=== PATIENT | female | born 1965 | race Caucasian/White ===

== ENCOUNTER 2018-05-17 03:50 | Inpatient (IN) | payer MEDICARE ==
[~2018-05-17] VITALS: Ht 157.5 cm; Wt 146.0 kg
[2018-05-17] VITALS (10 sets, daily range): BP systolic 113–143; BP diastolic 52–78; BMI 56.3
--- NOTE | ~2018-05-17 | HEMODYNAMI ---
PATIENT:MAYURI CHILD MEDICAL RECORD: [id number] : 63 LOCATION:[address] ADMISSION DATE: 05/17/18 Generatedon:05/17/201812:24 Patient name: MAYURI CHILD Patient #: [id number] SSN: DO B: 1965 Date of study: 05/17/2018 Page: Of Hemodynamic Procedure Report Patient Data Patient Demographics Procedure consent was obtained First Name: MAYURI Gender: Female Last Name: DANYELL : 1965 Middle Initial: A Age: 53 year(s) Patient #: [id number] Race: Unknown Additional ID: [id number] Contact details [address]: [address] [place] [address] State: [place] City: [place] Zip code: [address] Past Medical History Allergies Allergen Reaction Date Comments Reported Penicillins 05/17/2018 Other allergy 05/17/2018 TORADOL, CIPRO Admission Admission Data Admission Date: 05/17/2018 Admission Time: 5:29 Room #: D.2113 Lab Results Lab Result Date: 05/17/2018 Lab Result Time: 0:00 Biochemistry Name Units Result Min Max BUN mg/dl 16 --(---*)-- 7 18 Creatinine mg/dl 0.9 --(-*--)-- 0.6 1.3 CBC Name Units Result Min Max Hemoglobin g/dl 13.6 --(*---)-- 13.5 17.5 Procedure Procedure Types Cath Procedure Diagnostic Procedure LHC LHC w/Coronaries Procedure Description Procedure Date Procedure Date: 05/17/2018 Procedure Start Time: 12:15 Procedure End Time: 12:24 Procedure Staff Name Function Chandu Ace MD Performing Physician Sofi Sood RT Monitor Tamara Quach RT Scrub Diogo Jolley RN Nurse Procedure Data Cath Procedure Fluoroscopy Diagnostic fluoroscopy Total fluoroscopy Time: 0.7 time: 0.7 min min Diagnostic fluoroscopy Total fluoroscopy dose: 287 dose: 287 mGy mGy Contrast Material Contrast Material Type Amount (ml) Isovue 300 0 Entry Location Entry Primary Successful Side Size Upsize Upsize Entry Closure Succes sful Closure Location (Fr) 1 (Fr) 2 (Fr) Remarks Device Remarks Femoral Right 5 Fr Exoseal artery Estimated blood loss: 5 ml Diagnostic catheters Device Type Used For End Catheter Placement MULTIPACK Pigtail 5 Fr LV Angiography catheter MULTIPACK JL 4.0 5Fr Left Coronary catheter Angiography MULTIPACK 3DRC 5Fr Right Coronary catheter Angiography Procedure Complications No complications Procedure Medications Medication Administration Route Dosage 0.9% NaCl I.V. 100 ml/hr Oxygen etCO2 Nasal cannula 2 l/min Heparin Flush Bag added to field 2 bags (1000units/500ml NS) Lidocaine 2% added to field 20 Versed I.V. 1 mg Fentanyl I.V. 50 mcg Fentanyl I.V. 50 mcg Hemodynamics Rest HGB: 13.6 (g/dl) Heart Rate: 56 (bpm) Snapshots Pre Cath Intra NCS Post Cath Vital Signs Time Heart Resp SPO2 etCO2 NIBP (mmHg) Rhythm Pain Sedation Rate (ipm) (%) (mmHg) Status Level (bpm) 11:59:44 54 18 0 169/79(131) NSR 0 (11) 10(A) , No pain 12:05:27 53 13 96 51.8 147/84(117) NSR 0 (11) 10(A) , No pain 12:12:04 51 18 88 41.3 119/48(92) NSR 0 (11) 10(A) , No pain 12:16:38 54 19 95 48.8 96/60(81) NSR 0 (11) 10(A) , No pain 12:22:41 51 8 95 21.8 125/89(107) NSR 0 (11) 10(A) , No pain Medications Time Medication Route Dose Verified Delivered Reason Notes Eff ectiveness by by 12:00:34 0.9% NaCl I.V. 100 Diogo Diogo Per ml/hr Shola Jolley physician RN RN 12:00:44 Oxygen etCO2 2 Diogo Diogo Per Nasal l/min Shola Jolley physician cannula RN RN 12:00:54 Heparin Flush added 2 Diogo Diogo used for Bag to bags Shola Jolley procedure (1000units/500ml field RN RN NS) 12:01:04 Lidocaine 2% added 20ml Diogo Diogo for local to vial Lorigan Lorigan anesthetic field RN RN 12:11:44 Versed I.V. 1 mg Diogo Diogo for Lorigan Lorigan sedation RN RN 12:11:59 Fentanyl I.V. 50 Diogo Diogo for mcg Lorigan Lorigan sedation RN RN 12:17:53 Fentanyl I.V. 50 Diogo Diogo for mcg Lorigan Lorigan sedation RN mems process engineer Log Time Note 11:37:29 Signed procedure consent form obtained from patient. 11:37:30 Time tracking: Regular hours (M-F 7:00 - 5:00) 11:37:33 Plan of Care:Hemodynamics will remain stable., Cardiac rhythm will remain stable., Comfort level will be maintained., Respiratory function will remain adequate., Patient/ family verbilizes understanding of procedure., Procedure tolerated without complication., Recovers from procedure without complications.. 11:37:43 H&P Date Dictated: 05/17/2018 Within 30 days and on chart., H&P Addendum completed by physician on day of procedure. (MUST COMPLETE FOR ALL OUTPATIENTS). 11:38:36 Tamara Quach RT(R) sent for patient. Start room use. 11:39:03 Lab Result : BUN 16 mg/dl 11:39:03 Lab Result : Hemoglobin 13.6 g/dl 11:39:03 Lab Result : Creatinine 0.9 mg/dl 11:39:07 Lab results completed and on chart. 11:47:57 Patient received from Med II to CCL 1 Alert and oriented. Tansferred to table in Supine position. 11:47:59 Warm blankets applied, and jose hugger turned on for patient comfort. 11:47:59 Correct patient and procedure confirmed by team. 11:48:00 ECG and BP/O2 sat monitors applied to patient. 11:57:51 Vital chart was started 12:00:34 0.9% NaCl 100 ml/hr I.V. was administered by Diogo Jolley RN; Per physician; 12:00:44 Oxygen 2 l/min etCO2 Nasal cannula was administered by Diogo Jolley RN; Per physician; 12:00:54 Heparin Flush Bag (1000units/500ml NS) 2 bags added to field was administered by Diogo Jolley RN; used for procedure; 12:01:04 Lidocaine 2% 20ml vial added to field was administered by Diogo Jolley RN; for local anesthetic; 12:01:08 Baseline sample Acquired. 12:01:08 Full Disclosure recording started 12:01:11 Pre-procedure instructions explained to patient. 12:01:12 Pre-op teaching completed and patient verbalized understanding. 12:01:34 Family unavailable. 12:01:37 Rhythm: sinus rhythm 12:01:41 Patient NPO since Midnight. 12:01:49 Patient allergic to Penicillins 12:02:05 Patient allergic to Other allergyTORADOL, CIPRO 12:02:08 Is the patient allergic to Iodine/contrast media? No. 12:02:11 Is patient on blood thinner?Yes 12:02:15 ACC The patient was administered the following blood thiners within the last 24 hours: Eliquis 12:02:30 Patient diabetic? No. 12:02:35 Previous problem with sedation/anesthesia? No ? 12:02:37 Snore? No 12:02:38 Sleep apnea? No 12:02:41 Deviated septum? No 12:02:42 Opens mouth fully? Yes 12:02:43 Sticks out tongue? Yes 12:02:47 Airway obstruction? Yes ASTHMA 12:02:52 Dentures? No ? 12:02:57 Pre procedure: right dorsailis pedis pulse 0-Absent 12:03:00 Modified Mike's test Ulnar > 7 seconds. 12:03:02 Patient pain scale 0/10 ?. 12:03:32 IV patent on arrival in left forearm with 0.9% NaCl at KVO. 12:03:38 Right groin area was prepped with chlora-prep and draped in sterile fashion 12:03:39 Alarms reviewed by R. N. 12:03:39 Sharps counted by scrub and verified by R.N. 12:03:42 Use device set Femoral Dx 12:03:43 ACIST Syringe (60454) opened to sterile field. 12:03:43 Bag Decanter (2002) opened to sterile field. 12:03:44 Medline Cath Pack ([id number]) opened to sterile field. 12:03:44 DIAGNOSTIC WIRE .035 260cm J wire (654170) opened to sterile field. 12:03:45 ACIST Hand Control (92878) opened to sterile field. 12:03:46 ACIST Manifold (68503) opened to sterile field. 12:03:46 DIAGNOSTIC Multipack 5Fr catheter set ([id number]) opened to sterile field. 12:03:47 Tegaderm 4 x 4 (1626W) opened to sterile field. 12:03:48 SHEATH Prelude 5Fr 0.035 ([id number]) opened to sterile field. 12:07:51 Zero performed for pressure channel P1 12:09:00 Baseline sample Acquired. 12:10:48 Final Timeout: patient, procedure, and site verified with staff and physician. All members of the team are in agreement. 12:10:50 Right groin site verified by team. 12:10:52 Physical assessment completed. ASA score P 2 - A patient with mild systemic disease as per Chandu Ace MD. 12:10:55 Sedation plan: IV Moderate Sedation Medication:Versed, Fentanyl 12:11:44 Versed 1 mg I.V. was administered by Diogo Jolley RN; for sedation; 12:11:59 Fentanyl 50 mcg I.V. was administered by Diogo Jolley RN; for sedation; 12:15:05 Procedure started. 12:15:09 Local anesthetic to right femoral artery with Lidocaine 2% by Chandu Ace MD.INITIAL ACCESS ONLY 12:15:45 A 5 Fr sheath was inserted into the Right Femoral artery 12:16:10 A MULTIPACK Pigtail 5 Fr catheter was advanced over the wire and used for LV Angiography. 12:16:49 LV gram done using BROWN 12:16:53 EF : 50 % 12:16:56 Injector settings: Ml/sec: 10, Volume: 20, 12:16:57 Catheter removed. 12:17:03 A MULTIPACK JL 4.0 5Fr catheter was advanced over the wire and used for Left Coronary Angiography. 12:17:51 Catheter removed. 12:17:53 Fentanyl 50 mcg I.V. was administered by Diogo Jolley RN; for sedation; 12:17:56 A MULTIPACK 3DRC 5Fr catheter was advanced over the wire and used for Right Coronary Angiography. 12:18:41 Catheter removed. 12:18:43 EXOSEAL 5Fr (EX500) opened to sterile field. 12:18:55 Sheath removed intact; hemostasis achieved with Exoseal to the Right Femoral artery. 12:18:58 Procedure ended.(Physican Out) 12:19:08 Fluoroscopy time 00.70 minutes. 12:19:13 Fluoroscopy dose: 287 mGy 12:19:13 Flurop Dose total: 287 12:19:36 Contrast amount:Isovue 300 0ml. 12:19:38 Sharps counted by scrub and verified by R.N. 12:19:39 Insertion/operative site no bleeding no hematoma. 12:19:42 Post-op/insertion site Right Femoral artery dressed using a 4 x 4 and Tegaderm. 12:19:44 Post right femoral artery:stable, clean and dry 12:19:46 Post Procedure Pulses reassessed and unchanged 12:19:48 Post-procedure physical assessment completed. ASA score P 2 - A patient with mild systemic disease as per Chandu Ace MD. 12:19:50 Post procedure rhythm: unchanged. 12:19:53 Estimated blood loss: 5 ml 12:20:00 Post procedure instruction explained to patient.Patient verbalizes understanding. 12:20:01 Patient needs reinforcement of post procedure teaching. 12:21:05 Procedure and supply charges have been captured, reviewed, submitted and are correct. 12:21:13 Procedure Complication : No complications 12:21:15 See physician's report for complete and final results. 12:21:41 Report given to PCU. 12:24:09 Vital chart was stopped 12:24:15 Patient transfered to PCU with Bed. 12:24:23 Procedure ended. 12:24:23 Full Disclosure recording stopped 12:24:26 End room use (Document Last) Device Usage Item Name Manufacture Quantity Catalog Number Hospital Part Current M inimal Lot# / Charge Number Stock Stock Serial# Code ACIST Syringe Acist 1 09298 [id number] [id number] 2 0 (73488) [employer] Bag Decanter Microtek 1 [id number] 29511 920099 5 () [employer] Medline Cath Cardinal 1 [id number] 079012 62773 547045 5 [facility] ([id number]) DIAGNOSTIC WIRE St Akash 1 290799 586804 266879 001298 3 0 .035 260cm J wire (568415) ACIST Hand Acist 1 03492 369653 896818 414492 5 Control (48565) [employer] ACIST Manifold Acist 1 03524 945838 216166 042995 5 (35611) [employer] DIAGNOSTIC Cardinal 1 [id number] 455324 60634 863691 3 0 Multipack 5Fr Health catheter set ([id number]) Tegaderm 4 x 4 3M 1 1626W 405389 726137 025841 5 (1626W) SHEATH Prelude Merit 1 [id number] 373391 909208 832423 5 5Fr 0.035 Medical ([id number]) MULTIPACK Cardinal 1 133333 5 Pigtail 5 Fr Health catheter MULTIPACK JL Cardinal 1 [id number] 5 4.0 5Fr Health catheter MULTIPACK 3DRC Cardinal 1 939586 5 5Fr catheter Health EXOSEAL 5Fr Cardinal 1 EX500 915524 748020 013251 1 0 (EX500) Health Signature Audit Morven Stage Time Signature Unsigned Intra-Procedure 05/17/2018 Sofi 12:24:38 PM Counts RT(R) Signatures Monitor : Sofi Signature : Counts RT Date : Time : [address] [place] [address]
--- NOTE | ~2018-05-17 | OP ---
PATIENT NAME: MAYURI CHILD MEDICAL RECORD: [id number] :63 LOCATION:D.M2 D.2113 ADMISSION DATE:05/17/18 SURGEON: TWIN FUENTES MD DATE OF OPERATION: 05/17/2018 PROCEDURES: 1. Left heart catheterization. 2. Selective coronary angiography. 3. Left ventriculogram. INDICATION: Chest pain compatible with angina. PROCEDURE IN DETAIL: After informed consent was obtained and after a detailed explanation of risks, benefits as well as alternative therapies, the patient elected to proceed with angiogram and heart catheterization. The right femoral area was prepped and draped in normal sterile fashion. Right femoral artery was cannulated via modified Seldinger technique with placement of a 5-Marshallese sheath. All catheters exchanged through this sheath. FINDINGS: Left ventriculogram was performed in standard 30-degree BROWN view, reveals good cardiac wall motion throughout all segments. Overall ejection fraction estimated at 50%. SELECTIVE CORONARY ANGIOGRAPHY: Left main, left anterior descending, left circumflex, right coronary are all smooth-walled vessels. No angiographic evidence of coronary artery disease. OVERALL IMPRESSION: 1. No angiographic evidence of coronary artery disease. 2. Normal left heart pressures. 3. Normal left ventricular systolic function. The patient has been bradycardic during the procedure. Most likely her symptomatology is secondary to the bradycardia and not secondary to even quite significant coronary artery disease. Will discontinue her metoprolol, continue her propafenone. No other cardiac workup or treatment is necessary. TRANSINT:[id number] Voice Confirmation ID: [id number] DOCUMENT ID: [id number] TWIN FUENTES MD at 1752 CC: [id number] DICTATION DATE: 05/17/18 1223 CAFETERIA ATTENDANT: 05/17/18 1312 ADM IN [id number] [place] [address]
[2018-05-17 04:10] LABS: BASOPHILS 0.1 % (0-2); EOSINOPHILS 1.1 % (0-7); HEMATOCRIT 41.2 % (36.0-48.0); HEMOGLOBIN 13.6 g/dL (12-16); IMMATURE GRANULOCYTES 0.4 % (0-5); LYMPHOCYTES 22.7 % (15-50); MCH 29.4 pg (26.0-34.0); MCV 89.2 fL (80.0-100.0); MEAN PLATELET VOLUME 10.2 fL (7.4-10.4); MONOCYTES 11.8 % (2-11); NEUTROPHILS 63.9 % (40-80); PLATELET COUNT 192 10x3/uL (130-400); RBC 4.62 10x6/uL (4.00-5.40); WBC 7.5 10x3/uL (4.8-10.8)
[2018-05-17] MEDS ORDERED: KEFLEX500 MG PO (04:22)
[2018-05-17] MEDS ORDERED: DEPAKOTE500 MG PO (04:22)
[2018-05-17] MEDS ORDERED: ZYPREXA10 MG PO (04:23)
[2018-05-17] MEDS ORDERED: KEPPRA1000 MG PO (04:23)
[2018-05-17] MEDS ORDERED: ELIQUIS5 MG PO (04:24)
[2018-05-17] MEDS ORDERED: NEURONTIN 300300 MG (04:25)
[2018-05-17] MEDS ORDERED: LIPITOR40 MG PO (04:25)
[2018-05-17] MEDS ORDERED: TIROSINT25 MCG PO (04:26)
[2018-05-17] MEDS ORDERED: METOLAZONE2.5 MG (04:27)
[2018-05-17] MEDS ORDERED: METOPROLOL TART50 MG PO (04:28)
[2018-05-17] MEDS ORDERED: PROPAFENONE HC150 MG PO (04:28)
[2018-05-17] MEDS ORDERED: ZOLOFT100 MG PO (04:29)
[2018-05-17 04:30] LABS: ALBUMIN 3.2 g/dL (3.4-5.0); ALKALINE PHOSPHATASE 115 U/L (46-116); ALT (SGPT) 15 U/L (10-68); BILIRUBIN - TOTAL 0.34 mg/dL (0.2-1.3); CALC OSMOLALITY 286 mosm/kg (275-300); CALCIUM 9.1 mg/dL (8.5-10.1); CHLORIDE - SERUM 100 mmol/L (98-107); CREATININE - SERUM 0.9 mg/dL (0.6-1.3); GLUCOSE 112 mg/dL (74-106); PRO BNP 105 pg/mL (0-125); PROTEIN - SERUM 6.9 g/dL (6.4-8.2); SODIUM 143 mmol/L (136-145); TROPONIN-I < 0.017 ng/mL (0.000-0.060); UREA NITROGEN 16 mg/dL (7-18); eGFR NON AFRICAN AMERICAN 69 mL/min (90-120)
[2018-05-18 05:28] VITALS: BP 173/74
[2018-05-18 05:59] LABS: BASOPHILS 0.5 % (0-2); EOSINOPHILS 2.4 % (0-7); HEMATOCRIT 44.2 % (36.0-48.0); HEMOGLOBIN 13.9 g/dL (12-16); IMMATURE GRANULOCYTES 0.7 % (0-5); LYMPHOCYTES 32.5 % (15-50); MCH 29.1 pg (26.0-34.0); MCHC 31.4 g/dL (31.0-37.0); MEAN PLATELET VOLUME 10.3 fL (7.4-10.4); MONOCYTES 8.2 % (2-11); NEUTROPHILS 55.7 % (40-80); PLATELET COUNT 190 10x3/uL (130-400); RBC 4.78 10x6/uL (4.00-5.40); RDW 14.1 % (11.5-14.5)
[2018-05-18 06:12] LABS: CALCIUM 8.3 mg/dL (8.5-10.1); CHLORIDE - SERUM 104 mmol/L (98-107); CREATININE - SERUM 0.8 mg/dL (0.6-1.3); GLUCOSE 97 mg/dL (74-106); SODIUM 147 mmol/L (136-145); eGFR NON AFRICAN AMERICAN 79 mL/min (90-120)
[2018-05-18 06:23] LABS: CALC OSMOLALITY 290 mosm/kg (275-300); POTASSIUM - SERUM 4.1 mmol/L (3.5-5.1); UREA NITROGEN 11 mg/dL (7-18)
[2018-05-18 06:24] LABS: CARBON DIOXIDE 40.7 mmol/L (21.0-32.0)
[2018-05-18 06:32] LABS: MCV 92.5 fL (80.0-100.0); WBC 4.2 10x3/uL (4.8-10.8)
[2018-05-18 12:06] VITALS: BMI 56.2
[2018-05-18 20:42] VITALS: BP 135/72
[2018-05-19] VITALS: BP 176/96
[2018-05-19 06:09] VITALS: BP 139/67
[2018-05-19 08:36] VITALS: BP 128/42
[2018-05-19 12:33] VITALS: BP 163/69
[2018-05-19 17:21] VITALS: BP 153/58
[2018-05-19 19:10] LABS: APPEARANCE CLEAR (CLEAR); BILIRUBIN NEGATIVE (NEGATIVE); COLOR YELLOW (YELLOW); GLUCOSE NEGATIVE (NEGATIVE); KETONE NEGATIVE (NEGATIVE); NITRITE NEGATIVE (NEGATIVE); PROTEIN NEGATIVE (NEGATIVE); UROBILINOGEN NORMAL (NORMAL)
[2018-05-19 21:09] VITALS: BP 144/54
[2018-05-20 05:49] LABS: BASOPHILS 0.4 % (0-2); EOSINOPHILS 0.9 % (0-7); HEMATOCRIT 39.6 % (36.0-48.0); HEMOGLOBIN 12.2 g/dL (12-16); IMMATURE GRANULOCYTES 0.9 % (0-5); LYMPHOCYTES 18.4 % (15-50); MCH 28.8 pg (26.0-34.0); MCHC 30.8 g/dL (31.0-37.0); MCV 93.4 fL (80.0-100.0); MEAN PLATELET VOLUME 10.5 fL (7.4-10.4); MONOCYTES 10.3 % (2-11); NEUTROPHILS 69.1 % (40-80); PLATELET COUNT 173 10x3/uL (130-400); RBC 4.24 10x6/uL (4.00-5.40)
[2018-05-20 05:50] VITALS: BP 152/56
[2018-05-20 05:50] LABS: WBC 5.7 10x3/uL (4.8-10.8)
[2018-05-20 06:07] LABS: CALC OSMOLALITY 276 mosm/kg (275-300); CALCIUM 8.3 mg/dL (8.5-10.1); CARBON DIOXIDE 35.5 mmol/L (21.0-32.0); CHLORIDE - SERUM 102 mmol/L (98-107); CREATININE - SERUM 0.7 mg/dL (0.6-1.3); GLUCOSE 107 mg/dL (74-106); POTASSIUM - SERUM 4.5 mmol/L (3.5-5.1); SODIUM 140 mmol/L (136-145); eGFR NON AFRICAN AMERICAN > 90 mL/min (90-120)
[2018-05-20 06:10] LABS: UREA NITROGEN 7 mg/dL (7-18)
[2018-05-20 08:25] VITALS: BP 133/56
[2018-05-20 11:38] VITALS: BP 140/71
[2018-05-20 15:22] VITALS: BP 156/65
[2018-05-20 20:22] VITALS: BP 138/61
[2018-05-21] VITALS: BP 126/65
[2018-05-21 06:35] VITALS: BP 130/70
[2018-05-21 06:55] LABS: BASOPHILS 0.4 % (0-2); EOSINOPHILS 1.7 % (0-7); HEMOGLOBIN 11.8 g/dL (12-16); IMMATURE GRANULOCYTES 1.1 % (0-5); LYMPHOCYTES 27.6 % (15-50); MCH 28.6 pg (26.0-34.0); MCHC 31.1 g/dL (31.0-37.0); MEAN PLATELET VOLUME 10.4 fL (7.4-10.4); MONOCYTES 9.9 % (2-11); NEUTROPHILS 59.3 % (40-80); RBC 4.13 10x6/uL (4.00-5.40); RDW 13.8 % (11.5-14.5); WBC 4.7 10x3/uL (4.8-10.8)
[2018-05-21 06:59] LABS: PLATELET COUNT 103 10x3/uL (130-400)
[2018-05-21 07:11] LABS: CALCIUM 8.2 mg/dL (8.5-10.1); CHLORIDE - SERUM 103 mmol/L (98-107); CREATININE - SERUM 0.6 mg/dL (0.6-1.3); GLUCOSE 86 mg/dL (74-106); POTASSIUM - SERUM 3.9 mmol/L (3.5-5.1); SODIUM 142 mmol/L (136-145); eGFR NON AFRICAN AMERICAN > 90 mL/min (90-120)
[2018-05-21 07:16] LABS: CALC OSMOLALITY 280 mosm/kg (275-300); UREA NITROGEN 10 mg/dL (7-18)
[2018-05-21 07:17] LABS: CARBON DIOXIDE 41.1 mmol/L (21.0-32.0)
[2018-05-21 07:53] VITALS: BP 131/63
[2018-05-21 09:59] VITALS: Ht 157.5 cm; Wt 146.0 kg
[2018-05-21 11:57] VITALS: BP 135/54
[2018-05-21 15:20] VITALS: BP 104/62
[2018-05-21 19:00] VITALS: BP 131/56
[2018-05-22 00:29] VITALS: BP 128/51
[2018-05-22 05:06] VITALS: BP 122/64
[2018-05-22 05:11] LABS: BASOPHILS 0.2 % (0-2); EOSINOPHILS 2.2 % (0-7); HEMATOCRIT 37.8 % (36.0-48.0); IMMATURE GRANULOCYTES 0.5 % (0-5); LYMPHOCYTES 25.6 % (15-50); MCH 29.1 pg (26.0-34.0); MCHC 31.7 g/dL (31.0-37.0); MCV 91.5 fL (80.0-100.0); MEAN PLATELET VOLUME 9.9 fL (7.4-10.4); MONOCYTES 10.1 % (2-11); NEUTROPHILS 61.4 % (40-80); RBC 4.13 10x6/uL (4.00-5.40); RDW 13.8 % (11.5-14.5); WBC 4.1 10x3/uL (4.8-10.8)
[2018-05-22 05:20] LABS: PLATELET COUNT 135 10x3/uL (130-400)
[2018-05-22 05:30] LABS: CALCIUM 8.1 mg/dL (8.5-10.1); CHLORIDE - SERUM 101 mmol/L (98-107); CREATININE - SERUM 0.7 mg/dL (0.6-1.3); GLUCOSE 104 mg/dL (74-106); POTASSIUM - SERUM 3.8 mmol/L (3.5-5.1); SODIUM 143 mmol/L (136-145); eGFR NON AFRICAN AMERICAN > 90 mL/min (90-120)
[2018-05-22 05:36] LABS: CALC OSMOLALITY 285 mosm/kg (275-300); CARBON DIOXIDE 41.4 mmol/L (21.0-32.0); UREA NITROGEN 14 mg/dL (7-18)
[2018-05-22 08:43] VITALS: BP 137/66
[2018-05-22 13:35] VITALS: BP 126/64
[2018-05-22 16:17] VITALS: BP 142/56
[2018-05-22 21:24] VITALS: BP 157/79
[2018-05-23 00:57] VITALS: BP 157/67
[2018-05-23 05:52] VITALS: BP 145/76
[2018-05-23 06:13] LABS: BASOPHILS 0.2 % (0-2); EOSINOPHILS 0.3 % (0-7); HEMATOCRIT 40.5 % (36.0-48.0); HEMOGLOBIN 12.5 g/dL (12-16); IMMATURE GRANULOCYTES 0.9 % (0-5); LYMPHOCYTES 7.9 % (15-50); MCH 29.2 pg (26.0-34.0); MCHC 30.9 g/dL (31.0-37.0); MEAN PLATELET VOLUME 9.8 fL (7.4-10.4); MONOCYTES 6.4 % (2-11); NEUTROPHILS 84.3 % (40-80); PLATELET COUNT 149 10x3/uL (130-400); RBC 4.28 10x6/uL (4.00-5.40); RDW 13.9 % (11.5-14.5)
[2018-05-23 06:16] LABS: MCV 94.6 fL (80.0-100.0); WBC 5.8 10x3/uL (4.8-10.8)
[2018-05-23 06:23] LABS: CALCIUM 7.9 mg/dL (8.5-10.1); CHLORIDE - SERUM 101 mmol/L (98-107); CREATININE - SERUM 0.8 mg/dL (0.6-1.3); GLUCOSE 145 mg/dL (74-106); SODIUM 144 mmol/L (136-145); eGFR NON AFRICAN AMERICAN 79 mL/min (90-120)
[2018-05-23 06:35] LABS: CALC OSMOLALITY 287 mosm/kg (275-300); POTASSIUM - SERUM 4.8 mmol/L (3.5-5.1); UREA NITROGEN 8 mg/dL (7-18)
[2018-05-23 06:36] LABS: CARBON DIOXIDE 43.5 mmol/L (21.0-32.0)
[2018-05-23 07:59] VITALS: BP 155/88
[2018-05-23 15:59] VITALS: BP 119/77
[2018-05-23 20:00] VITALS: BP 116/78
[2018-05-24 04:17] VITALS: BP 122/61
[2018-05-24 05:54] LABS: BASOPHILS 0.4 % (0-2); EOSINOPHILS 1.5 % (0-7); HEMATOCRIT 39.8 % (36.0-48.0); HEMOGLOBIN 12.3 g/dL (12-16); IMMATURE GRANULOCYTES 1.7 % (0-5); LYMPHOCYTES 26.3 % (15-50); MCH 28.8 pg (26.0-34.0); MCHC 30.9 g/dL (31.0-37.0); MCV 93.2 fL (80.0-100.0); MEAN PLATELET VOLUME 9.6 fL (7.4-10.4); NEUTROPHILS 62.1 % (40-80); PLATELET COUNT 144 10x3/uL (130-400); RBC 4.27 10x6/uL (4.00-5.40); RDW 13.9 % (11.5-14.5); WBC 4.6 10x3/uL (4.8-10.8)
[2018-05-24 06:34] LABS: CALCIUM 8.3 mg/dL (8.5-10.1); CHLORIDE - SERUM 102 mmol/L (98-107); CREATININE - SERUM 0.8 mg/dL (0.6-1.3); SODIUM 142 mmol/L (136-145); UREA NITROGEN 9 mg/dL (7-18); eGFR NON AFRICAN AMERICAN 79 mL/min (90-120)
[2018-05-24 06:38] LABS: CALC OSMOLALITY 280 mosm/kg (275-300); GLUCOSE 84 mg/dL (74-106); POTASSIUM - SERUM 3.8 mmol/L (3.5-5.1)
[2018-05-24 06:39] LABS: CARBON DIOXIDE 42.3 mmol/L (21.0-32.0)
[2018-05-24 08:13] VITALS: BP 141/73
[2018-05-24 11:35] VITALS: BP 129/61
[2018-05-24 16:32] VITALS: BP 147/64
[2018-05-24 21:04] VITALS: BP 117/61
[2018-05-25 05:33] VITALS: BP 135/59
[2018-05-25 07:43] VITALS: BP 137/71
[2018-05-25 11:30] VITALS: BP 94/69
[2018-05-25 15:37] VITALS: BP 124/63
[2018-05-25 20:26] VITALS: BP 124/64
[2018-05-26 00:14] VITALS: BP 113/50
[2018-05-26 04:30] VITALS: BP 124/66
[2018-05-26 05:03] LABS: BASOPHILS 0.6 % (0-2); EOSINOPHILS 2.2 % (0-7); HEMATOCRIT 37.1 % (36.0-48.0); HEMOGLOBIN 11.8 g/dL (12-16); IMMATURE GRANULOCYTES 1.1 % (0-5); LYMPHOCYTES 27.7 % (15-50); MCH 29.2 pg (26.0-34.0); MCHC 31.8 g/dL (31.0-37.0); MCV 91.8 fL (80.0-100.0); MEAN PLATELET VOLUME 9.9 fL (7.4-10.4); MONOCYTES 9.6 % (2-11); NEUTROPHILS 58.8 % (40-80); PLATELET COUNT 145 10x3/uL (130-400); RBC 4.04 10x6/uL (4.00-5.40); RDW 14.3 % (11.5-14.5); WBC 5.3 10x3/uL (4.8-10.8)
[2018-05-26 05:24] LABS: CALCIUM 8.2 mg/dL (8.5-10.1)
[2018-05-26 05:34] LABS: ANION GAP 3.9 mmol/L (8-16); POTASSIUM - SERUM 4.6 mmol/L (3.5-5.1)
[2018-05-26 05:35] LABS: CARBON DIOXIDE 41.7 mmol/L (21.0-32.0)
[2018-05-26 07:46] VITALS: BP 131/67
[2018-05-26] MEDS ORDERED: RYTHMOL PO (11:37)
[2018-05-26] MEDS ORDERED: PROTONIX40 MG PO (11:38)
[2018-05-26 11:52] VITALS: BP 134/71
== END 2018-05-26 15:37 | DRG 690 ==
LOC: D.ER 03:50 → D.EDHOLD 05:29 → OBSVTIME 05:29 → D.M2 05:29 → D.SDCHOLD 05-21 01:07 → D.M2 05-21 01:07
PROVIDERS: Family Medicine; Internal Medicine Interventional Cardiology; Internal Medicine Nephrology
PROC: B2151ZZ Fluoroscopy of Left Heart using Low Osmolar Contrast (ICD-10-PCS; 2018-05-17)
PROC: 4A023N7 Measurement of Cardiac Sampling and Pressure, Left Heart, Percutaneous Approach (ICD-10-PCS; 2018-05-17)
PROC: B2111ZZ Fluoroscopy of Multiple Coronary Arteries using Low Osmolar Contrast (ICD-10-PCS; principal; 2018-05-17 11:38)
DX: N39.0 Urinary tract infection, site not specified (principal); L03.116 Cellulitis of left lower limb; L03.115 Cellulitis of right lower limb; Z68.43 Body mass index [BMI] 50.0-59.9, adult; R07.9 Chest pain, unspecified; E87.6 Hypokalemia; J44.9 Chronic obstructive pulmonary disease, unspecified; I11.0 Hypertensive heart disease with heart failure; I50.9 Heart failure, unspecified; R00.1 Bradycardia, unspecified; G40.909 Epilepsy, unspecified, not intractable, without status epilepticus; F31.9 Bipolar disorder, unspecified; E66.01 Morbid (severe) obesity due to excess calories; Z91.19 Patient's noncompliance with other medical treatment and regimen; B96.20 Unspecified Escherichia coli [E. coli] as the cause of diseases classified elsewhere

== ENCOUNTER 2018-06-12 22:43 | Inpatient (IN) | payer MEDICARE ==
[~2018-06-12] VITALS: Ht 157.5 cm; Wt 145.6 kg
[~2018-06-12 22:43] MED LIST: DEPAKOTE500 MG PO; ELIQUIS5 MG PO; KEFLEX500 MG PO; KEPPRA1000 MG PO; LIPITOR40 MG PO; METOLAZONE2.5 MG; METOPROLOL TART50 MG PO; NEURONTIN 300300 MG; PROPAFENONE HC150 MG PO; PROTONIX40 MG PO; RYTHMOL PO; TIROSINT25 MCG PO; ZOLOFT100 MG PO; ZYPREXA10 MG PO
[2018-06-12] MEDS ORDERED: POTASSIUM CHLO20 MEQ (22:49)
[2018-06-12] MEDS ORDERED: LASIX80 MG PO (22:50)
[2018-06-12] MEDS ORDERED: DEPAKOTE500 MG PO (22:50)
[2018-06-12] MEDS ORDERED: ZYPREXA5 MG PO (22:51)
[2018-06-12] MEDS ORDERED: MELATONIN 3 MG1 TAB PO (22:51)
[2018-06-12] MEDS ORDERED: ELIQUIS5 MG PO (22:52)
[2018-06-12] MEDS ORDERED: NORCO 7.5/325 T1 TA1 PO (22:52)
[2018-06-12] MEDS ORDERED: NEURONTIN 300300 MG PO (22:52)
[2018-06-12] MEDS ORDERED: LIPITOR40 MG PO (22:54)
[2018-06-12] MEDS ORDERED: PROPAFENONE HC225 MG PO (22:55)
[2018-06-12 23:33] LABS: HEMATOCRIT 35.3 % (36.0-48.0); HEMOGLOBIN 11.6 g/dL (12-16); LYMPHOCYTES 21.4 % (15-50); MCH 29.7 pg (26.0-34.0); MCHC 32.9 g/dL (31.0-37.0); MCV 90.3 fL (80.0-100.0); MEAN PLATELET VOLUME 9.5 fL (7.4-10.4); NEUTROPHILS 63.6 % (40-80); RBC 3.91 10x6/uL (4.00-5.40); WBC 5.1 10x3/uL (4.8-10.8)
[2018-06-12 23:35] LABS: PLATELET COUNT 176 10x3/uL (130-400)
[2018-06-12 23:40] VITALS: BP 160/73
[2018-06-12 23:42] LABS: APTT 32.3 SECONDS (22.8-39.4); INR 1.02 (0.85-1.17)
[2018-06-12 23:43] LABS: D-DIMER-QUANTITATIVE 0.44 ug/mLFEU (0.20-0.54)
[2018-06-12 23:57] LABS: ALKALINE PHOSPHATASE 106 U/L (46-116); ALT (SGPT) 23 U/L (10-68); BILIRUBIN - TOTAL 0.37 mg/dL (0.2-1.3); CALC OSMOLALITY 288 mosm/kg (275-300); CALCIUM 8.1 mg/dL (8.5-10.1); CARBON DIOXIDE 39.7 mmol/L (21.0-32.0); CHLORIDE - SERUM 102 mmol/L (98-107); CREATINE KINASE 98 UL (21-215); CREATININE - SERUM 0.8 mg/dL (0.6-1.3); GLUCOSE 115 mg/dL (74-106); MAGNESIUM - SERUM 1.6 mg/dL (1.8-2.4); POTASSIUM - SERUM 3.4 mmol/L (3.5-5.1); PRO BNP 216 pg/mL (0-125); PROTEIN - SERUM 6.6 g/dL (6.4-8.2); SODIUM 145 mmol/L (136-145); TROPONIN-I < 0.017 ng/mL (0.000-0.060); UREA NITROGEN 11 mg/dL (7-18); eGFR NON AFRICAN AMERICAN 79 mL/min (90-120)
[2018-06-13] VITALS (8 sets, daily range): BP systolic 120–147; BP diastolic 56–84; Ht 157.5 cm; Wt 145.6 kg
[2018-06-13] MEDS ORDERED: K-DUR20 MEQ PO (03:50)
[2018-06-13] MEDS ORDERED: PROPAFENONE HC225 MG PO (03:59)
[2018-06-13] MEDS ORDERED: NORCO 7.5/325 T1 TA1 PO (04:02)
[2018-06-13] MEDS ORDERED: ACETAMINOPHEN325 MG PO (04:04)
[2018-06-13 05:54] LABS: CKMB 3.3 U/L (0.0-3.6); CREATINE KINASE 98 UL (21-215); TROPONIN-I < 0.017 ng/mL (0.000-0.060)
[2018-06-13 12:17] LABS: CKMB 2.9 U/L (0.0-3.6); CREATINE KINASE 81 UL (21-215); TROPONIN-I < 0.017 ng/mL (0.000-0.060)
[2018-06-13 17:30] LABS: CKMB 2.8 U/L (0.0-3.6); CREATINE KINASE 67 UL (21-215)
[2018-06-13 17:44] LABS: TROPONIN-I < 0.017 ng/mL (0.000-0.060)
[2018-06-14 06:19] LABS: BASOPHILS 0.2 % (0-2); EOSINOPHILS 0 % (0-7); HEMATOCRIT 37.1 % (36.0-48.0); HEMOGLOBIN 11.6 g/dL (12-16); IMMATURE GRANULOCYTES 0.7 % (0-5); LYMPHOCYTES 13.4 % (15-50); MCH 29.3 pg (26.0-34.0); MCHC 31.3 g/dL (31.0-37.0); MCV 93.7 fL (80.0-100.0); MEAN PLATELET VOLUME 10.2 fL (7.4-10.4); MONOCYTES 4.9 % (2-11); NEUTROPHILS 80.8 % (40-80); PLATELET COUNT 186 10x3/uL (130-400); RBC 3.96 10x6/uL (4.00-5.40); RDW 14.6 % (11.5-14.5); WBC 5.5 10x3/uL (4.8-10.8)
[2018-06-14 06:21] VITALS: BP 114/66
[2018-06-14 06:56] LABS: ANION GAP 8.7 mmol/L (8-16); CALCIUM 8.1 mg/dL (8.5-10.1); CARBON DIOXIDE 34.7 mmol/L (21.0-32.0); CREATININE - SERUM 0.9 mg/dL (0.6-1.3); MAGNESIUM - SERUM 1.9 mg/dL (1.8-2.4)
[2018-06-14 07:04] LABS: POTASSIUM - SERUM 4.4 mmol/L (3.5-5.1)
[2018-06-14 07:48] VITALS: BP 118/66
[2018-06-14 10:42] VITALS: BP 116/66
[2018-06-14 15:45] VITALS: BP 120/68
[2018-06-14 21:20] VITALS: BP 138/66
[2018-06-15 05:53] VITALS: BP 142/79
[2018-06-15 07:56] VITALS: BP 116/63
[2018-06-15] MEDS ORDERED: IPRAT-ALBUT 0.5-3 ML INH (07:59)
[2018-06-15] MEDS ORDERED: ZITHROMAX250 MG PO (07:59)
[2018-06-15] MEDS ORDERED: Rocephin INJ IM (07:59)
[2018-06-15] MEDS ORDERED: LASIX40 MG PO (08:01)
[2018-06-15] MEDS ORDERED: PREDNISONE20 MG PO (08:02)
[2018-06-15] MEDS ORDERED: FLORAJEN3 CAPS460 MG PO (08:02)
[2018-06-15] MEDS ORDERED: MELATONIN 3 MG1 TAB PO (08:03)
[2018-06-15 12:27] VITALS: BP 155/76
== END 2018-06-15 15:23 | DRG 202 ==
LOC: D.ER 22:43 → D.M2 06-13 01:38 → D.SDCHOLD 06-13 16:31 → D.M2 06-13 16:32
PROVIDERS: Family Medicine
DX: J20.9 Acute bronchitis, unspecified (principal); J44.0 Chronic obstructive pulmonary disease with (acute) lower respiratory infection; L03.115 Cellulitis of right lower limb; Z68.43 Body mass index [BMI] 50.0-59.9, adult; I50.22 Chronic systolic (congestive) heart failure; I11.0 Hypertensive heart disease with heart failure; I48.91 Unspecified atrial fibrillation; E87.6 Hypokalemia; E78.5 Hyperlipidemia, unspecified; E03.9 Hypothyroidism, unspecified; G47.00 Insomnia, unspecified; G62.9 Polyneuropathy, unspecified; G89.29 Other chronic pain; G40.909 Epilepsy, unspecified, not intractable, without status epilepticus; E66.01 Morbid (severe) obesity due to excess calories

== ENCOUNTER 2018-08-25 00:32 | Emergency (ER) | payer MEDICARE ==
[~2018-08-25] VITALS: Ht 157.5 cm; Wt 150.0 kg
[~2018-08-25 00:32] MED LIST changes: +ACETAMINOPHEN325 MG PO; +FLORAJEN3 CAPS460 MG PO; +IPRAT-ALBUT 0.5-3 ML INH; +K-DUR20 MEQ PO; +LASIX40 MG PO; +LASIX80 MG PO; +MELATONIN 3 MG1 TAB PO; +NEURONTIN 300300 MG PO; +NORCO 7.5/325 T1 TA1 PO; +POTASSIUM CHLO20 MEQ; +PREDNISONE20 MG PO; +PROPAFENONE HC225 MG PO; +Rocephin INJ IM; +ZITHROMAX250 MG PO; +ZYPREXA5 MG PO
[2018-08-25 00:33] VITALS: Ht 157.5 cm; Wt 150.0 kg
[2018-08-25] MEDS ORDERED: TRAZODONE HCL150 MG PO (00:37)
[2018-08-25 06:25] VITALS: BP 150/54
== END 2018-08-25 06:26 | disposition home or self-care (01) ==
LOC: D.ER 00:32
DX: I50.9 Heart failure, unspecified (principal); R51 Headache; W18.30XA Fall on same level, unspecified, initial encounter; Y93.89 Activity, other specified; Y92.129 Unspecified place in nursing home as the place of occurrence of the external cause; M54.5 Low back pain; G40.909 Epilepsy, unspecified, not intractable, without status epilepticus

== ENCOUNTER 2018-09-10 06:44 | Emergency (ER) | payer MEDICARE | END 2018-09-10 08:55 | LOC: D.ER 06:44 | DX: S93.402A Sprain of unspecified ligament of left ankle, initial encounter (principal); W18.31XA Fall on same level due to stepping on an object, initial encounter; Y93.89 Activity, other specified; Y92.129 Unspecified place in nursing home as the place of occurrence of the external cause; G40.909 Epilepsy, unspecified, not intractable, without status epilepticus; I50.9 Heart failure, unspecified; J44.9 Chronic obstructive pulmonary disease, unspecified; K21.9 Gastro-esophageal reflux disease without esophagitis ==

== ENCOUNTER 2018-09-19 20:45 | Emergency (ER) | payer MEDICARE ==
[~2018-09-19] VITALS: Ht 157.5 cm; Wt 157.3 kg
[~2018-09-19 20:45] MED LIST changes: +TRAZODONE HCL150 MG PO
[2018-09-19 20:50] VITALS: BP 163/87; Ht 157.5 cm; Wt 157.3 kg
[2018-09-19] MEDS ORDERED: CORTISPORIN OTI10 M1 LEFT EAR (22:00)
== END 2018-09-19 22:36 | disposition home or self-care (01) ==
LOC: D.ER 20:45
DX: H61.22 Impacted cerumen, left ear (principal); H92.02 Otalgia, left ear; G40.909 Epilepsy, unspecified, not intractable, without status epilepticus; E11.9 Type 2 diabetes mellitus without complications; I50.9 Heart failure, unspecified

== ENCOUNTER 2019-01-07 12:40 | Inpatient (IN) | payer MEDICARE ==
[~2019-01-07] VITALS: Ht 157.5 cm; Wt 137.8 kg
--- NOTE | ~2019-01-07 | HEMODYNAMI ---
PATIENT:MAYURI CHILD MEDICAL RECORD: [id number] : 63 LOCATION:[place] [address] ADMISSION DATE: 01/07/19 Generatedon:01/09/201910:24 Patient name: MAYURI CHILD Patient #: [id number] SSN: DO B: 1965 Date of study: 01/09/2019 Page: Of Hemodynamic Procedure Report Patient Data Patient Demographics Procedure consent was obtained First Name: MAYURI Gender: Female Last Name: DANYELL : 1965 Middle Initial: A Age: 53 year(s) Patient #: [id number] Race: Unknown Additional ID: [id number] Contact details Address: [address] [place] [address] [address] State: [place] City: [place] Zip code: [address] Past Medical History Allergies Allergen Reaction Date Comments Reported Penicillins 05/17/2018 Other allergy 05/17/2018 TORADOL, CIPRO Admission Admission Data Admission Date: 01/07/2019 Admission Time: 15:10 Room #: [facility] Procedure Procedure Types Cath Procedure Diagnostic Procedure LHC LHC w/Coronaries Procedure Description Procedure Date Procedure Date: 01/09/2019 Procedure Start Time: 10:12 Procedure End Time: 10:21 Procedure Staff Name Function Pieter Betancourt MD Performing Physician Sofi Sood RT Monitor Tamara Quach RT Scrub Peter Lopez RN Nurse Procedure Data Cath Procedure Fluoroscopy Diagnostic fluoroscopy Total fluoroscopy Time: 1.2 time: 1.2 min min Diagnostic fluoroscopy Total fluoroscopy dose: 557 dose: 557 mGy mGy Contrast Material Contrast Material Type Amount (ml) Isovue 300 43 Entry Location Entry Primary Successful Side Size Upsize Upsize Entry Closure Succes sful Closure Location (Fr) 1 (Fr) 2 (Fr) Remarks Device Remarks Femoral Right 5 Fr Exoseal artery Estimated blood loss: 5 ml Diagnostic catheters Device Type Used For End Catheter Placement MULTIPACK JL 4.0 5Fr Left Coronary catheter Angiography MULTIPACK 3DRC 5Fr Right Coronary catheter Angiography MULTIPACK Pigtail 5 Fr LV Angiography catheter Procedure Complications No complications Procedure Medications Medication Administration Route Dosage Oxygen Lidocaine 2% added to field 20 Heparin Flush Bag added to field 2 bags (1000units/500ml NS) 0.9% NaCl I.V. 100 ml/hr Versed I.V. 1 mg Fentanyl I.V. 50 mcg Versed I.V. 1 mg Fentanyl I.V. 50 mcg Versed I.V. 1 mg Fentanyl I.V. 50 mcg Hemodynamics Rest Heart Rate: 71 (bpm) Pressure Samples Time Site Value (mmHg) Purpose Heart Use Rate(bpm) 10:14 AO 105/105(87) Snapshot 101 10:14 AO 131/60(84) Snapshot 74 10:16 AO 99/13(29) Snapshot 72 10:17 LV 126/31,33 EDP 71 10:18 AO 128/89(101) Pullback 73 10:18 AO 133/82(104) Snapshot 75 Gradients Valve Time Site Site 2 Mean SEP/DFP Peak To Heart Use 1 (mmHg) (sec/min) Peak Rate (mmHg) (bpm) Aortic 10:18 LV AO 41 15 73 128/89(101) Calculations Valve P-P Mean Valve Index Valve Source Name Gradient Area Flow (cm2) Aortic 41 41 Snapshots Pre Cath Intra NCS Post Cath Vital Signs Time Heart Resp SPO2 etCO2 NIBP Rhythm Pain Sedation Rate (ipm) (%) (mmHg) (mmHg) Status Level (bpm) 10:08:17 68 20 100 0 134/74(0) A-Fib 6 (11) 10(A) , Intense 10:14:38 71 25 95 0 125/64(0) A-Fib 6 (11) 10(A) , Intense 10:21:01 72 15 96 0 98/63(91) A-Fib 6 (11) 10(A) , Intense Medications Time Medication Route Dose Verified Delivered Reason Notes Effe ctiveness by by 10:00:09 Oxygen mask bipap Pieter Green used for [facility] crusher 10:08:11 Lidocaine 2% added 20ml Pieter Stapleton for local to vial [facility] anesthetic field MD ATWOOD 10:08:17 Heparin Flush added 2 Pieter Stapleton used for Bag to bags [facility] John procedure (1000units/500ml field MD ATWOOD NS) 10:08:26 0.9% NaCl I.V. 100 Pieter Stapleton Per ml/hr [facility] John physician MD ATWOOD 10:10:33 Versed I.V. 1 mg Pieter Riverie for Serafin Lopez RN sedation 10:10:40 Fentanyl I.V. 50 [facility] sed[facility] 10:15:44 Versed I.V. 1 mg Pieter Riverie for Serafin Lopez RN sedation 10:15:48 Fentanyl I.V. 50 Pieter Riverie for [facility] Lopez RN sedation 10:18:52 Versed I.V. 1 mg Pieter Riverie for [facility] RN sedation 10:18:56 Fentanyl I.V. 50 Pieter Riverie for [facility] RN sedation Procedure Log Time Note 9:49:10 Tamara Quach RT(R) sent for patient. Start room use. 9:49:11 Time tracking: Regular hours (M-F 7:00 - 5:00) 9:49:15 Plan of Care:Hemodynamics will remain stable., Cardiac rhythm will remain stable., Comfort level will be maintained., Respiratory function will remain adequate., Patient/ family verbilizes understanding of procedure., Procedure tolerated without complication., Recovers from procedure without complications.. 9:51:07 Use device set Femoral Dx 9:51:07 ACIST Syringe (33634) opened to sterile field. 9:51:08 Bag Decanter (2002S) opened to sterile field. 9:51:08 Medline Cath Pack ([id number]) opened to sterile field. 9:51:09 DIAGNOSTIC WIRE .035 260cm J wire (384447) opened to sterile field. 9:51:10 ACIST Hand Control (58327) opened to sterile field. 9:51:10 ACIST Manifold (89334) opened to sterile field. 9:51:11 DIAGNOSTIC Multipack 5Fr catheter set (NS5000) opened to sterile field. 9:51:11 Tegaderm 4 x 4 (1626W) opened to sterile field. 9:51:13 SHEATH 5FR Purdon (OVE673) opened to sterile field. 9:54:52 Patient received from CVICU to CCL 1 Alert and oriented. Tansferred to table in Supine position. 9:54:53 Warm blankets applied, and jose hugger turned on for patient comfort. 9:54:54 Correct patient and procedure confirmed by team. 9:54:55 Signed procedure consent form obtained from patient. 9:54:56 ECG and BP/O2 sat monitors applied to patient. 9:54:57 Full Disclosure recording started 10:00:09 Oxygen bipap mask was administered by Peter Lopez RN; used for procedure; 10:06:27 Vital chart was started 10:06:29 Baseline sample Acquired. 10:06:32 Rhythm: sinus rhythm 10:07:19 pt c/o knee pain 10:07:36 H&P Date Dictated: 01/08/2019 Within 30 days and on chart.. 10:07:38 Pre-procedure instructions explained to patient. 10:07:38 Pre-op teaching completed and patient verbalized understanding. 10:07:42 Family in patients room. 10:07:43 Patient NPO since Midnight. 10:08:02 Is the patient allergic to Iodine/contrast media? No. 10:08:05 Is patient on blood thinner?No 10:08:11 Lidocaine 2% 20ml vial added to field was administered by Pieter Betancourt MD; for local anesthetic; 10:08:17 Heparin Flush Bag (1000units/500ml NS) 2 bags added to field was administered by Pieter Betancourt MD; used for procedure; 10:08:18 Patient diabetic? No. 10:08:25 Previous problem with sedation/anesthesia? No ? 10:08:26 0.9% NaCl 100 ml/hr I.V. was administered by Pieter eBtancourt MD; Per physician; 10:08:26 Snore? Yes 10:08:27 Sleep apnea? Yes 10:08:28 Deviated septum? No 10:08:28 Opens mouth fully? Yes 10:08:29 Sticks out tongue? Yes 10:08:32 Airway obstruction? Yes COPD 10:08:35 Dentures? No ? 10:08:48 Pre procedure: right dorsailis pedis pulse 1+ Palpable, but thready & weak; easily obliterated 10:08:51 Patient pain scale 0/10 ?. 10:09:42 PICC line Right lower arm with normal saline kvo 10:09:46 Lab results completed and on chart. 10:09:48 Right groin area was prepped with chlora-prep and draped in sterile fashion 10:09:49 Alarms reviewed by Logan Moya 10:09:49 Sharps counted by scrub and verified by R.N. 10::50 Final Timeout: patient, procedure, and site verified with staff and physician. All members of the team are in agreement. 10:09:52 Right groin site verified by team. 10:09:55 Maximum allowable Isovue 300 dose 300ml. Physician notified. (300ml for normal creatinines. For patients with creatinine of 1.7 or higher multiply weight(kg) x 5 divided by creatinine.) 10:09:58 Fire Safety Assessment: A--An alcohol-based skin anteseptic being used preoperatively., C--Open oxygen or nitrous oxide is being used., D--An ESU, laser, or fiber-optic light is being used. 10:10:04 Physical assessment completed. ASA score P 3 - A patient with severe systemic disease as per Pieter Betancourt MD. 10:10:07 Sedation plan: IV Moderate Sedation Medication:Versed, Fentanyl 10:10:33 Versed 1 mg I.V. was administered by Peter Lopez RN; for sedation; 10:10:40 Fentanyl 50 mcg I.V. was administered by Peter Lopez RN; for sedation; 10:12:19 Procedure started. 10:12:22 Local anesthetic to right femoral artery with Lidocaine 2% by Peiter Betancourt MD.INITIAL ACCESS ONLY 10:13:06 A 5 Fr sheath was inserted into the Right Femoral artery 10:13:33 Zero performed for pressure channel P1 10:13:39 Zero performed for pressure channel P1 10:13:46 Zero performed for pressure channel P1 10:13:49 Zero performed for pressure channel P1 10:14:16 A MULTIPACK JL 4.0 5Fr catheter was advanced over the wire and used for Left Coronary Angiography. 10:15:17 Catheter removed. 10:15:23 A MULTIPACK 3DRC 5Fr catheter was advanced over the wire and used for Right Coronary Angiography. 10:15:44 Versed 1 mg I.V. was administered by Peter Lopez RN; for sedation; 10:15:48 Fentanyl 50 mcg I.V. was administered by Peter Lopez RN; for sedation; 10:16:12 Catheter removed. 10:16:23 A MULTIPACK Pigtail 5 Fr catheter was advanced over the wire and used for LV Angiography. 10:17:42 LV gram done using BROWN 10:17:43 LV hemodynamics recorded. 10:17:45 Injector settings: Ml/sec: 10, Volume: 20, 10:17:51 EF : 50 % 10:18:14 Catheter removed. 10:18:26 Sheath removed intact; hemostasis achieved with Exoseal to the Right Femoral artery. 10:18:28 Procedure ended.(Physican Out) 10:18:40 Fluoroscopy time 01.20 minutes. 10:18:44 Flurop Dose total: 557 10:18:44 Fluoroscopy dose: 557 mGy 10:18:47 Contrast amount:Isovue 300 43ml. 10:18:49 Sharps counted by scrub and verified by R.N. 10:18:51 Insertion/operative site no bleeding no hematoma. 10:18:52 Versed 1 mg I.V. was administered by Peter Lopez RN; for sedation; 10:18:53 Post-op/insertion site Right Femoral artery dressed using a 4 x 4 and Tegaderm. 10:18:56 Fentanyl 50 mcg I.V. was administered by Peter Lopez RN; for sedation; 10:18:56 Post right femoral artery:stable, clean and dry 10:18:57 Post Procedure Pulses reassessed and unchanged 10:19:03 Post-procedure physical assessment completed. ASA score P 3 - A patient with severe systemic disease as per Pieter Betancourt MD. 10:19:05 Post procedure rhythm: unchanged. 10:19:09 Estimated blood loss: 5 ml 10:19:11 Post procedure instruction explained to patient.Patient verbalizes understanding. 10:19:12 Patient needs reinforcement of post procedure teaching. 10:19:26 Procedure Complication : No complications 10:19:28 See physician's report for complete and final results. 10:19:32 EXOSEAL 5Fr (EX500) opened to sterile field. 10:19:45 Procedure and supply charges have been captured, reviewed, submitted and are correct. 10:20:53 Vital chart was stopped 10:20:57 Report given to CVICU. 10:21:23 Patient transfered to CVICU with Bed. 10:21:39 Procedure ended. 10:21:39 Full Disclosure recording stopped 10:21:43 End room use (Document Last) Device Usage Item Name Manufacture Quantity Catalog Hospital Part Current Minimal L ot# / Number Charge Number Stock Stock Serial# Code ACIST Acist 1 36067 [id number] 344350 296259 20 Syringe Medical (34616) Systems Inc Bag Microtek 1 2001S 633419 85219 053780 5 Decanter Medical Inc. () Medline Medline 1 [id number] 767683 96511 237303 5 Cath Pack ([id number]) DIAGNOSTIC St Akash 1 014833 021122 074776 623011 30 WIRE .035 260cm J wire (699810) ACIST Hand Acist 1 61422 796967 265551 503277 5 Control Medical (47772) Systems Inc ACIST Acist 1 91843 845950 296625 195730 5 Manifold Medical (11857) Systems Inc DIAGNOSTIC Cardinal 1 OG2515 069786 81192 378146 30 Multipack Health 5Fr catheter set (QC8948) Tegaderm 4 3M 1 1626W 840149 659423 306788 5 x 4 (1626W) SHEATH 5FR Terumo 1 OUR760 594856 350847 419405 5 Purdon (MQH804) MULTIPACK Cardinal 1 324702 5 JL 4.0 5Fr Health catheter MULTIPACK Cardinal 1 599073 5 3DRC 5Fr Health catheter MULTIPACK Cardinal 1 922524 5 Pigtail 5 Health Fr catheter EXOSEAL 5Fr Cardinal 1 EX500 789951 144153 746803 10 (EX500) Health Signature Audit [place] Stage Time Signature Unsigned Intra-Procedure 01/09/2019 Sofi 10:24:51 AM Counts RT(R) Signatures Monitor : Sofi Signature : Counts RT Date : Time : [facility] [address] [place] [address]
[~2019-01-07 12:40] MED LIST changes: +CORTISPORIN OTI10 M1 LEFT EAR
[2019-01-07 13:43] LABS: BASOPHILS 0.1 % (0-2); EOSINOPHILS 1.4 % (0-7); HEMATOCRIT 38.5 % (36.0-48.0); HEMOGLOBIN 12.2 g/dL (12-16); IMMATURE GRANULOCYTES 0.6 % (0-5); LYMPHOCYTES 20.9 % (15-50); MCH 28.6 pg (26.0-34.0); MCHC 31.7 g/dL (31.0-37.0); MCV 90.2 fL (80.0-100.0); MEAN PLATELET VOLUME 10.2 fL (7.4-10.4); MONOCYTES 6.4 % (2-11); NEUTROPHILS 70.6 % (40-80); PLATELET COUNT 216 10x3/uL (130-400); RBC 4.27 10x6/uL (4.00-5.40); RDW 15.6 % (11.5-14.5); WBC 7.2 10x3/uL (4.8-10.8)
[2019-01-07 14:01] LABS: ALBUMIN 3.4 g/dL (3.4-5.0); ALKALINE PHOSPHATASE 139 U/L (46-116); ALT (SGPT) 30 U/L (10-68); BILIRUBIN - TOTAL 0.38 mg/dL (0.2-1.3); CALCIUM 8.4 mg/dL (8.5-10.1); CARBON DIOXIDE 31.6 mmol/L (21.0-32.0); CHLORIDE - SERUM 103 mmol/L (98-107); CKMB 0.8 U/L (0.0-3.6); CREATINE KINASE 33 UL (21-215); CREATININE - SERUM 0.7 mg/dL (0.6-1.3); MAGNESIUM - SERUM 1.8 mg/dL (1.8-2.4); POTASSIUM - SERUM 3.8 mmol/L (3.5-5.1); PRO BNP 435 pg/mL (0-125); PROTEIN - SERUM 7.4 g/dL (6.4-8.2); SODIUM 144 mmol/L (136-145); UREA NITROGEN 12 mg/dL (7-18); eGFR NON AFRICAN AMERICAN > 90 mL/min (90-120)
[2019-01-07 14:03] LABS: CALC OSMOLALITY 285 mosm/kg (275-300); GLUCOSE 87 mg/dL (74-106); TROPONIN-I < 0.017 ng/mL (0.000-0.060)
[2019-01-07] MEDS ORDERED: ROBAXIN500 MG PO (16:46)
[2019-01-07] MEDS ORDERED: LIPITOR80 MG PO (16:48)
[2019-01-07] MEDS ORDERED: ZYPREXA2.5 MG PO (16:48)
[2019-01-07] MEDS ORDERED: PROTONIX40 MG PO (16:50)
[2019-01-07] MEDS ORDERED: KLOR-CON/EF 2525 MEQ PO (16:51)
[2019-01-07] MEDS ORDERED: KEPPRA1000 MG PO (16:52)
[2019-01-07] MEDS ORDERED: TRAZODONE HCL150 MG PO (17:00)
[2019-01-07] MEDS ORDERED: ZOLOFT100 MG PO (17:01)
[2019-01-07] MEDS ORDERED: DEPAKOTE125 MG PO (17:02)
[2019-01-07] MEDS ORDERED: RYTHMOL SR225 MG (17:04)
[2019-01-07] MEDS ORDERED: LASIX40 MG (17:07)
[2019-01-07] MEDS ORDERED: LISINOPRIL5 MG PO (17:07)
[2019-01-07] MEDS ORDERED: NEURONTIN 300300 MG PO (17:09)
[2019-01-07] MEDS ORDERED: COREG6.25 MG PO (17:10)
[2019-01-07 18:13] VITALS: BMI 64.9
[2019-01-08] VITALS (22 sets, daily range): BP systolic 91–140; BP diastolic 50–96
[2019-01-08 02:27] LABS: BASOPHILS 0.3 % (0-2); EOSINOPHILS 1.9 % (0-7); HEMATOCRIT 36.5 % (36.0-48.0); HEMOGLOBIN 11.2 g/dL (12-16); IMMATURE GRANULOCYTES 0.4 % (0-5); LYMPHOCYTES 22.8 % (15-50); MCH 28.4 pg (26.0-34.0); MCHC 30.7 g/dL (31.0-37.0); MCV 92.6 fL (80.0-100.0); MEAN PLATELET VOLUME 10.2 fL (7.4-10.4); MONOCYTES 9.2 % (2-11); NEUTROPHILS 65.4 % (40-80); PLATELET COUNT 198 10x3/uL (130-400); RBC 3.94 10x6/uL (4.00-5.40); RDW 15.7 % (11.5-14.5); WBC 6.9 10x3/uL (4.8-10.8)
[2019-01-08 02:30] LABS: CALC OSMOLALITY 283 mosm/kg (275-300); CALCIUM 7.9 mg/dL (8.5-10.1); CARBON DIOXIDE 33.5 mmol/L (21.0-32.0); CHLORIDE - SERUM 104 mmol/L (98-107); GLUCOSE 114 mg/dL (74-106); POTASSIUM - SERUM 3.7 mmol/L (3.5-5.1); SODIUM 142 mmol/L (136-145); UREA NITROGEN 13 mg/dL (7-18)
[2019-01-08 02:37] LABS: CREATININE - SERUM 0.9 mg/dL (0.6-1.3); TROPONIN-I < 0.017 ng/mL (0.000-0.060); eGFR NON AFRICAN AMERICAN 69 mL/min (90-120)
[2019-01-09] VITALS (25 sets, daily range): BP systolic 90–131; BP diastolic 43–96; Ht 157.5 cm; Wt 137.8 kg
[2019-01-09 05:22] LABS: HEMATOCRIT 40.3 % (36.0-48.0); HEMOGLOBIN 12.8 g/dL (12-16); LYMPHOCYTES 8.5 % (15-50); MCH 28.7 pg (26.0-34.0); MCHC 31.8 g/dL (31.0-37.0); MCV 90.4 fL (80.0-100.0); MEAN PLATELET VOLUME 9.9 fL (7.4-10.4); NEUTROPHILS 87.7 % (40-80); PLATELET COUNT 145 10x3/uL (130-400); RBC 4.46 10x6/uL (4.00-5.40); RDW 14.5 % (11.5-14.5); WBC 5.4 10x3/uL (4.8-10.8)
[2019-01-09 05:48] LABS: ALBUMIN 3.5 g/dL (3.4-5.0); ALKALINE PHOSPHATASE 197 U/L (46-116); BILIRUBIN - TOTAL 0.42 mg/dL (0.2-1.3); CALC OSMOLALITY 281 mosm/kg (275-300); CALCIUM 8.4 mg/dL (8.5-10.1); CARBON DIOXIDE 36.6 mmol/L (21.0-32.0); CHLORIDE - SERUM 98 mmol/L (98-107); CREATININE - SERUM 0.8 mg/dL (0.6-1.3); GLUCOSE 140 mg/dL (74-106); MAGNESIUM - SERUM 1.9 mg/dL (1.8-2.4); PROTEIN - SERUM 7.6 g/dL (6.4-8.2); SODIUM 140 mmol/L (136-145); UREA NITROGEN 15 mg/dL (7-18); eGFR NON AFRICAN AMERICAN 79 mL/min (90-120)
[2019-01-09 05:50] LABS: ALT (SGPT) 120 U/L (10-68); POTASSIUM - SERUM 4.3 mmol/L (3.5-5.1)
[2019-01-09 09:49] LABS: CHOL - HDL RATIO 2.7 ratio (2.3-4.1); LDL-HDL RATIO 1.4 ratio (1.5-3.5); THYROID STIMULATING HORMONE 0.53 uIU/mL (0.36-3.74); VALPROIC ACID (DEPAKOTE) 30.7 ug/mL (50.0-100.0)
--- NOTE | 2019-01-09 18:14 | MORECARE ---
CASE MANAGEMENT DISCHARGE SUMMARY PATIENT: MAYURI CHILD UNIT: [id number] ADM DATE: 01/07/19 AGE: 53 : 63 SEX: F ROOM/BED: [facility] AUTHOR: TIN HERNANDEZ PHYSICIAN: REFERRING PHYSICIAN: ELLIS CAGLE MD DATE OF SERVICE: 01/09/19 Discharge Plan Patient Name[facility] MAYURI [facility] [facility] 1965 Planned Disposition: Intermediate Facility Anticipated Discharge Date: Discharge Date: Expected LOS: Initial Reviewer: [email or web address] Initial Review Date: 01/07/2019 Generated: 01/09/19 7:13 pm Patient Name: MAYURI CHILD Page [id number] at 1814 All edits/amendments must be made on the electronic document DICTATION DATE: 01/09/191812 SUTURE WINDER HAND: DENISE 01/09/191812 RPT#: [id number] DC DATE: STATUS: ADM IN [facility] [address] [place] [address] END OF REPORT
--- NOTE | 2019-01-09 18:20 | MORECARE ---
CASE MANAGEMENT DISCHARGE SUMMARY PATIENT: MAYURI CHILD UNIT: [id number] ADM DATE: 01/07/19 AGE: 53 : 63 SEX: F ROOM/BED: D[facility] AUTHOR: TIN HERNANDEZ PHYSICIAN: REFERRING PHYSICIAN: ELLIS CAGLE MD DATE OF SERVICE: 01/09/19 Discharge Plan Patient Name: MAYURI CHILD [facility] [facility] 1965 Planned Disposition: Group Home Facility Anticipated Discharge Date: Discharge Date: Expected LOS: Initial Reviewer: [email or web address] Initial Review Date: 01/07/2019 Generated: 01/09/19 7:20 pm DCPIA - Discharge Planning Initial Assessment Updated by [email or web address]: Rosa Amin on 01/09/19 6:16 pm * Is the patient Alert and Oriented? Yes * How many steps to enter\exit or inside your home? * PCP NO PCP * Pharmacy [facility] * Preadmission Environment Home with Family * ADLs Partial Dependent * Partial ADLs (Assistance needed) Ambulation * Equipment Walker * List name and contact numbers for known caregivers / representatives who currently or will assist patient after discharge: JENNYFER NORTH - SISTER- UNKNOWN * Verbal permission to speak to the caregivers and representatives has been obtained from the patient. Yes * Community resources currently utilized Home Health * Please name any agencies selected above. [facility] * Additional services required to return to the preadmission environment? No * Can the patient safely return to the preadmission environment? Yes * Has this patient been hospitalized within the prior 30 days at any hospital? Yes Last DP export: 01/09/19 5:13 pm Patient Name: MAYURI CHILD Page 39802 at 1820 All edits/amendments must be made on the electronic document DICTATION DATE: 01/09/191819 TALENT ACQUISITION LEAD: DENISE 01/09/191819 RPT#: [id number] DC DATE: STATUS: ADM IN [facility] [address] [place] [address] END OF REPORT
--- NOTE | 2019-01-09 18:28 | MORECARE ---
CASE MANAGEMENT DISCHARGE SUMMARY PATIENT: MAYURI CHILD UNIT: [id number] ADM DATE: 01/07/19 AGE: 53 : 63 SEX: F ROOM/BED: D[facility] AUTHOR: MARY,DOC PHYSICIAN: REFERRING PHYSICIAN: ELLIS CAGLE MD DATE OF SERVICE: 01/09/19 Discharge Plan Patient Name: MAYURI CHILD Facility: [facility]:[place] : 1965 Planned Disposition: Long-Term Facility Anticipated Discharge Date: Discharge Date: Expected LOS: Initial Reviewer: [email or web address] Initial Review Date: 01/07/2019 Generated: 01/09/19 7:27 pm Comments DCP- Discharge Planning Updated by [email or web address]: Rosa Amin on 01/09/19 5:[address] Patient Name: MAYURI CHILD Admission Status: ER Accout number: [id number] Admission Date: 01-07-2019 : 1965 Admission Diagnosis: Attending: ELLIS CAGLE Current LOS: 2 Anticipated DC Date: Planned Disposition: Long-Term Facility Primary Insurance: MEDICARE A & B Discharge Planning Comments: CM met with patient at bedside. Patient states that she lives at home with her sister Kathleen Bajwa (whom is also in hospital) and her sister's acquaintance ( wouldn't give CM name.) Patient states this man is in hospital at [facility] with pneumonia that's why they came here. Patient wishes for both her sister and her to be admitted to SNF for rehab upon discharge. [facility] signed for #1 [place], #2 [place]. Patient states she only has a walker. She states she can't have home 02 because she has a gas stove. CM will send records to [place] and patient will also need [place] prior to discharge. CM will continue to follow and assist as needed with discharge planning / needs. [employer] Library Clerk: Rosa Amin DCPIA - Discharge Planning Initial Assessment Updated by [email or web address]: Rosa Amin on 01/09/19 6:16 pm * Is the patient Alert and Oriented? Yes * How many steps to enter\exit or inside your home? * PCP NO PCP * Pharmacy [facility] * Preadmission Environment Home with Family * ADLs Partial Dependent * Partial ADLs (Assistance needed) Ambulation * Equipment Walker * List name and contact numbers for known caregivers / representatives who currently or will assist patient after discharge: KATHLEEN BAJWA - SISTER- UNKNOWN * Verbal permission to speak to the caregivers and representatives has been obtained from the patient. Yes * Community resources currently utilized Home Health * Please name any agencies selected above. [facility] * Additional services required to return to the preadmission environment? No * Can the patient safely return to the preadmission environment? Yes * Has this patient been hospitalized within the prior 30 days at any hospital? Yes Last DP export: 01/09/19 5:20 pm Patient Name: MAYURI CHILD Page 08491 at 1828 All edits/amendments must be made on the electronic document DICTATION DATE: 01/09/191826 DIRECTOR OF RELIGIOUS ACTIVITIES: DENISE 01/09/191826 RPT#: [id number] DC DATE: STATUS: ADM IN [facility] [address] [place] [address] END OF REPORT
--- NOTE | 2019-01-09 18:35 | MORECARE ---
CASE MANAGEMENT DISCHARGE SUMMARY PATIENT: MAYURI CHILD UNIT: [id number] ADM DATE: 01/07/19 AGE: 53 : 63 SEX: F ROOM/BED: D.[facility] AUTHOR: MARY,DOC PHYSICIAN: REFERRING PHYSICIAN: ELLIS CAGLE MD DATE OF SERVICE: 01/09/19 Discharge Plan Patient Name: MAYURI CHILD Facility: [facility]:[place] : 1965 Planned Disposition: [facility]cf Facility Anticipated Discharge Date: Discharge Date: Expected LOS: Initial Reviewer: [email or web address] Initial Review Date: 01/07/2019 Generated: 01/09/19 7:35 pm Comments DCP- Discharge Planning Updated by [email or web address]: Rosa Amin on 01/09/19 5:[address] Patient Name: MAYURI CHILD Admission Status: ER Accout number: [id number] Admission Date: 01-07-2019 : 1965 Admission Diagnosis: Attending: ELLIS CAGLE Current LOS: 2 Anticipated DC Date: Planned Disposition: [facility] Facility Primary Insurance: MEDICARE A & B Discharge Planning Comments: CM met with patient at bedside. Patient states that she lives at home with her sister Kathleen Bajwa (whom is also in hospital) and her sister's acquaintance ( wouldn't give CM name.) Patient states this man is in hospital at [facility] with pneumonia that's why they came here. Patient wishes for both her sister and her to be admitted to SNF for rehab upon discharge. [facility] signed for #1 [place], #2 [place]. Patient states she only has a walker. She states she can't have home 02 because she has a gas stove. CM will send records to [place] and patient will also need [place] prior to discharge. CM will continue to follow and assist as needed with discharge planning / needs. Laborer [place]: Rosa Amin DCPIA - Discharge Planning Initial Assessment Updated by [id number]: Rosa Amin on 01/09/19 6:16 pm * Is the patient Alert and Oriented? Yes * How many steps to enter\exit or inside your home? * PCP NO PCP * Pharmacy [facility] * Preadmission Environment Home with Family * ADLs Partial Dependent * Partial ADLs (Assistance needed) Ambulation * Equipment Walker * List name and contact numbers for known caregivers / representatives who currently or will assist patient after discharge: KATHLEEN BAJWA - SISTER- UNKNOWN * Verbal permission to speak to the caregivers and representatives has been obtained from the patient. Yes * Community resources currently utilized Home Health * Please name any agencies selected above. [facility] * Additional services required to return to the preadmission environment? No * Can the patient safely return to the preadmission environment? Yes * Has this patient been hospitalized within the prior 30 days at any hospital? Yes External Providers External Provider: [facility] Next Contact Date: Service Request Date: Service Type: Resolution: Reviewer: Comments: Last DP export: 01/09/19 5:27 pm Patient Name: MAYURI CHILD Page 69221 at 1835 All edits/amendments must be made on the electronic document DICTATION DATE: 01/09/191834 CIVIL LITIGATION ATTORNEY: DENISE 01/09/191834 RPT#: [id number] DC DATE: STATUS: ADM IN [facility] [address] [place] [address] END OF REPORT
[2019-01-10] VITALS (16 sets, daily range): BP systolic 100–142; BP diastolic 40–94
[2019-01-10 06:27] LABS: ALBUMIN 3.3 g/dL (3.4-5.0); ALKALINE PHOSPHATASE 183 U/L (46-116); ALT (SGPT) 148 U/L (10-68); CALCIUM 8.3 mg/dL (8.5-10.1); CARBON DIOXIDE 37.1 mmol/L (21.0-32.0); CREATININE - SERUM 0.8 mg/dL (0.6-1.3); MAGNESIUM - SERUM 1.9 mg/dL (1.8-2.4); PROTEIN - SERUM 7.3 g/dL (6.4-8.2); UREA NITROGEN 18 mg/dL (7-18); eGFR NON AFRICAN AMERICAN 79 mL/min (90-120)
[2019-01-10 07:05] LABS: BASOPHILS 0 % (0-2); EOSINOPHILS 0 % (0-7); HEMATOCRIT 40.1 % (36.0-48.0); HEMOGLOBIN 12.5 g/dL (12-16); IMMATURE GRANULOCYTES 0.4 % (0-5); LYMPHOCYTES 7.3 % (15-50); MCH 28.3 pg (26.0-34.0); MCHC 31.2 g/dL (31.0-37.0); MCV 90.9 fL (80.0-100.0); MEAN PLATELET VOLUME 10.6 fL (7.4-10.4); MONOCYTES 3.5 % (2-11); NEUTROPHILS 88.8 % (40-80); RBC 4.41 10x6/uL (4.00-5.40); RDW 14.9 % (11.5-14.5)
[2019-01-10 07:07] LABS: CALC OSMOLALITY 280 mosm/kg (275-300); GLUCOSE 197 mg/dL (74-106); POTASSIUM - SERUM 4.6 mmol/L (3.5-5.1); SODIUM 137 mmol/L (136-145)
[2019-01-10 07:08] LABS: CHLORIDE - SERUM 95 mmol/L (98-107)
[2019-01-10 07:15] LABS: PLATELET COUNT 180 10x3/uL (130-400); WBC 8.3 10x3/uL (4.8-10.8)
--- NOTE | 2019-01-10 13:13 | OP ---
PATIENT NAME: MAYURI CHILD MEDICAL RECORD: [id number] :63 LOCATION:[place] [address].[place] ADMISSION DATE:01/08/19 SURGEON: JOCELYN HOU MD DATE OF OPERATION: 01/09/2019 PROCEDURE: Left heart catheterization, selective coronary angiography, right femoral artery approach. CATHETERS: A 5-Lao sheath, 5/4 left and right Attila, 5/4 pig. The procedure was well tolerated. The patient returned to french, sheath removed. ExoSeal device placed. FINDINGS: Left ventriculography in 30-degree BROWN view: Normal wall motion, normal systolic function. CORONARY ANATOMY: LEFT MAIN: Left main is free of disease. LAD: Free of disease in the diagonal system. CIRCUMFLEX: Free of disease in the marginal system. RIGHT CORONARY ARTERY: Dominant artery, gives rise to PDA, free of disease. IMPRESSION: Normal LV systolic function, normal coronary anatomy. Noncardiac chest pain. TRANSINT:[id number] Voice Confirmation ID: [id number] DOCUMENT ID: [id number] JOCELYN HOU MD at 1313 CC: [id number] DICTATION DATE: 01/09/19 1023 CAMPUS AMBASSADOR: 01/09/19 1228 ADM IN [facility] [address] [place] [address]
--- NOTE | 2019-01-10 13:13 | CN ---
PATIENT NAME:MAYURI CHILD MEDICAL RECORD: [id number] : 63 LOCATION:[facility].CV04 ADMIT DATE: 01/08/19 ACCOUNT: [id number] CONSULTING PHYSICIAN: JOCELYN HOU MD REFERRING PHYSICIAN: ELLIS CAGLE MD DATE OF CONSULTATION: 01/08/2019 HISTORY: A 53-year-old female with history of atrial fibrillation, history of hypertension, and dyslipidemia, admitted with chest pain. She has a history of bipolar disorder as well. When I saw the patient, rapid response was being called. She responded somewhat to Narcan. She was also given D50. Gases showed marked respiratory alkalosis with pCO2 in excess of 100 as well as pH of 7.09. She is currently being transferred to ICU on BiPAP. Sats are holding nicely. At this point, after receiving Narcan, she did have few nonsustained episodes of AFib. We are asked to see her from cardiovascular standpoint. PAST MEDICAL HISTORY: Includes; 1. History of atrial fibrillation. 2. Hypertension. 3. Hyperlipidemia. 4. Bipolar disorder. 5. Peripheral neuropathy. 6. Hypothyroidism, on replacement. MEDICATIONS: Include propafenone 225 t.i.d., Synthroid 25 mcg daily, Protonix 40 daily, Lasix 40 daily, metolazone 2.5 three times a week, trazodone 150 at bedtime, [place] 7.5 q. 6 p.r.n., Neurontin 300 t.i.d., Zyprexa 5 daily, Zoloft 100 mg daily, Keppra 1 gram b.i.d., Depakote 500 b.i.d., lisinopril 5 daily, carvedilol 3.125 daily, atorvastatin 40 daily, and Robaxin 500 t.i.d. SOCIAL HISTORY: She is nonsmoker and nondrinker. REVIEW OF SYSTEMS: Unobtainable at this point secondary to CO2 narcosis. PHYSICAL EXAMINATION: GENERAL: Mildly responsive, in no acute distress. NECK: No bruits noted. HEART: Regular. LUNGS: Diminished breath sounds. ABDOMEN: Soft and nontender. EXTREMITIES: Pulses 2+ and 1+ edema. IMPRESSION: Suspect hypoventilation with hypercapnic and subsequent CO2 narcosis. Maintaining sats well; but given overall status, is being transferred to the ICU. We will check echo. Difficult to tell if she has been having angina, although this does not appear to be acute ischemic event from cardiovascular standpoint given ECG and enzymes. Further investigation into coronary artery disease when more stable medically. TRANSINT:[id number] Voice Confirmation ID: [id number] DOCUMENT ID: [id number] CONSULT REPORT [id number] MAYURI CHILD GREGORY A MD at 1313 CC: [id number] DICTATION DATE: 01/08/19 1036 HAND TIER: 01/08/19 1627 ADM IN [facility] [address] [place] [address]
--- NOTE | 2019-01-10 15:35 | MORECARE ---
CASE MANAGEMENT DISCHARGE SUMMARY PATIENT: MAYURI CHILD UNIT: [id number] ADM DATE: 01/08/19 AGE: 53 : 63 SEX: F ROOM/BED: D.[facility] AUTHOR: MARY,DOC PHYSICIAN: REFERRING PHYSICIAN: ELLIS CAGLE MD DATE OF SERVICE: 01/10/19 Discharge Plan Patient Name: MAYURI CHILD Facility: [facility]:[place] : 1965 Planned Disposition: Long-Term Facility Anticipated Discharge Date: Discharge Date: Expected LOS: Initial Reviewer: [email or web address] Initial Review Date: 01/07/2019 Generated: 01/10/19 4:35 pm Comments DCP- Discharge Planning Updated by [email or web address]: Rosa Amin on 01/09/19 5:[address] Patient Name: MAYURI CHILD Admission Status: ER Accout number: [id number] Admission Date: 01-07-2019 : 1965 Admission Diagnosis: Attending: ELLIS CAGLE Current LOS: 2 Anticipated DC Date: Planned Disposition: Long-Term Facility Primary Insurance: MEDICARE A & B Discharge Planning Comments: CM met with patient at bedside. Patient states that she lives at home with her sister Kathleen Bajwa (whom is also in hospital) and her sister's acquaintance ( wouldn't give CM name.) Patient states this man is in hospital at [facility] with pneumonia that's why they came here. Patient wishes for both her sister and her to be admitted to SNF for rehab upon discharge. [facility] signed for #1 [place], #2 [place]. Patient states she only has a walker. She states she can't have home 02 because she has a gas stove. CM will send records to [place] and patient will also need EVELIN prior to discharge. CM will continue to follow and assist as needed with discharge planning / needs. Gate Technician: Rosa Amin DCPIA - Discharge Planning Initial Assessment Updated by [id number]: Rosa Amin on 01/09/19 6:16 pm * Is the patient Alert and Oriented? Yes * How many steps to enter\exit or inside your home? * PCP NO PCP * Pharmacy [facility] * Preadmission Environment Home with Family * ADLs Partial Dependent * Partial ADLs (Assistance needed) Ambulation * Equipment Walker * List name and contact numbers for known caregivers / representatives who currently or will assist patient after discharge: KATHLEEN BAJWA - SISTER- UNKNOWN * Verbal permission to speak to the caregivers and representatives has been obtained from the patient. Yes * Community resources currently utilized Home Health * Please name any agencies selected above. [facility] * Additional services required to return to the preadmission environment? No * Can the patient safely return to the preadmission environment? Yes * Has this patient been hospitalized within the prior 30 days at any hospital? Yes External Providers External Provider: [facility] [place] Next Contact Date: Service Request Date: Service Type: Resolution: Reviewer: Comments: External Provider: [facility] Next Contact Date: Service Request Date: Service Type: Resolution: Reviewer: Comments: Last DP export: 01/09/19 5:35 pm Patient Name: MAYURI CHILD Page 58785 at 1535 All edits/amendments must be made on the electronic document DICTATION DATE: 01/10/19 1535 IMPROVEMENT DIRECTOR: DENISE 01/10/19 1535 RPT#: [id number] DC DATE: STATUS: ADM IN [facility] [address] [place] [address] END OF REPORT
--- NOTE | 2019-01-10 15:45 | MORECARE ---
CASE MANAGEMENT DISCHARGE SUMMARY PATIENT: MAYURI CHILD UNIT: [id number] ADM DATE: 01/08/19 AGE: 53 : 63 SEX: F ROOM/BED: D[facility] AUTHOR: MARY,DOC PHYSICIAN: REFERRING PHYSICIAN: ELLIS CAGLE MD DATE OF SERVICE: 01/10/19 Discharge Plan Patient Name: MAYURI CHILD Facility: [facility]:[place] : 1965 Planned Disposition: Longterm Facility Anticipated Discharge Date: Discharge Date: Expected LOS: Initial Reviewer: [id number] Initial Review Date: 01/07/2019 Generated: 01/10/19 4:45 pm Comments DCP- Discharge Planning Updated by [email or web address]: Rosa Amin on 01/10/19 2:[address] CM RECIEVED CALL FROM NANCY @ [email or web address] SHE STATED THAT THEY HAD DENIED BOTH HER AND HER SISTER KATHLEEN FOR PLACEMENT. CM SPOKE WITH PATIENT SHE STATED THAT THE [facility] WAS HER SECOND CHOICE. PATIENT ALSO STATED THAT SHE WAS WILLING TO GO ANYWHERE LOCALLY THAT WOULD ACCEPT THEM BOTH LONG IT WAS A NICE FACILITY. CM SENT RECORDS TO THE [facility] AND SPOKE WITH SHELLY NAQVI OF [place]. CM WILL CONTINUE TO FOLLOW AND ASSIST WITH DISCHARGE PLANNING / NEEDS. DCP- Discharge Planning Updated by [id number]: Rosa Amin on 01/09/19 5:[address] Patient Name: MAYURI CHILD Admission Status: ER Accout number: [id number] Admission Date: 01-07-2019 : 1965 Admission Diagnosis: Attending: ELLIS CAGLE Current LOS: 2 Anticipated DC Date: Planned Disposition: Longterm Facility Primary Insurance: MEDICARE A & B Discharge Planning Comments: CM met with patient at bedside. Patient states that she lives at home with her sister Kathleen Bajwa (whom is also in hospital) and her sister's acquaintance ( wouldn't give CM name.) Patient states this man is in hospital at [facility] with pneumonia that's why they came here. Patient wishes for both her sister and her to be admitted to SNF for rehab upon discharge. SH[facility] signed for #1 [place], #2 [place]. Patient states she only has a walker. She states she can't have home 02 because she has a gas stove. CM will send records to [place] and patient will also need EVELIN prior to discharge. CM will continue to follow and assist as needed with discharge planning / needs. Document Management Analyst: Rosa Amin DCPIA - Discharge Planning Initial Assessment Updated by [email or web address]: Rosa Amin on 01/09/19 6:16 pm * Is the patient Alert and Oriented? Yes * How many steps to enter\exit or inside your home? * PCP NO PCP * Pharmacy [facility] * Preadmission Environment Home with Family * ADLs Partial Dependent * Partial ADLs (Assistance needed) Ambulation * Equipment Walker * List name and contact numbers for known caregivers / representatives who currently or will assist patient after discharge: KATHLEEN BAJWA - SISTER- UNKNOWN * Verbal permission to speak to the caregivers and representatives has been obtained from the patient. Yes * Community resources currently utilized Home Health * Please name any agencies selected above. [facility] * Additional services required to return to the preadmission environment? No * Can the patient safely return to the preadmission environment? Yes * Has this patient been hospitalized within the prior 30 days at any hospital? Yes Last DP export: 01/10/19 2:35 pm Patient Name: MAYURI CHILD Page 05452 at 1545 All edits/amendments must be made on the electronic document DICTATION DATE: 01/10/191544 MOTOR OVERHAULER: DENISE 01/10/191544 RPT#: [id number] [place] DATE: STATUS: ADM IN [facility] [address] [place] [address] END OF REPORT
[2019-01-11 04:31] VITALS: BP 126/68
[2019-01-11 06:45] LABS: ALBUMIN 3.2 g/dL (3.4-5.0); ALKALINE PHOSPHATASE 159 U/L (46-116); ALT (SGPT) 119 U/L (10-68); BILIRUBIN - TOTAL 0.27 mg/dL (0.2-1.3); CALCIUM 8.5 mg/dL (8.5-10.1); CARBON DIOXIDE 37.6 mmol/L (21.0-32.0); CHLORIDE - SERUM 97 mmol/L (98-107); CREATININE - SERUM 0.8 mg/dL (0.6-1.3); GLUCOSE 159 mg/dL (74-106); POTASSIUM - SERUM 4.3 mmol/L (3.5-5.1); PROTEIN - SERUM 7.1 g/dL (6.4-8.2); SODIUM 139 mmol/L (136-145); eGFR NON AFRICAN AMERICAN 79 mL/min (90-120)
[2019-01-11 06:47] LABS: CALC OSMOLALITY 284 mosm/kg (275-300); UREA NITROGEN 24 mg/dL (7-18)
[2019-01-11 07:24] LABS: BASOPHILS 0.1 % (0-2); EOSINOPHILS 0 % (0-7); HEMATOCRIT 40.5 % (36.0-48.0); HEMOGLOBIN 12.8 g/dL (12-16); IMMATURE GRANULOCYTES 0.4 % (0-5); LYMPHOCYTES 8.9 % (15-50); MCH 28.5 pg (26.0-34.0); MCHC 31.6 g/dL (31.0-37.0); MCV 90.2 fL (80.0-100.0); MEAN PLATELET VOLUME 10.9 fL (7.4-10.4); MONOCYTES 3.1 % (2-11); NEUTROPHILS 87.5 % (40-80); PLATELET COUNT 185 10x3/uL (130-400); RBC 4.49 10x6/uL (4.00-5.40); WBC 8.2 10x3/uL (4.8-10.8)
[2019-01-11 08:27] VITALS: BP 110/65
[2019-01-11 12:17] VITALS: BP 103/71
[2019-01-11 17:26] VITALS: BP 141/88
[2019-01-11 18:11] VITALS: BP 111/70
[2019-01-11 20:00] VITALS: BP 111/75
[2019-01-12 00:30] VITALS: BP 109/74
[2019-01-12 05:00] VITALS: BP 102/55
[2019-01-12 05:43] LABS: BASOPHILS 0 % (0-2); EOSINOPHILS 0 % (0-7); HEMATOCRIT 41.9 % (36.0-48.0); HEMOGLOBIN 13.4 g/dL (12-16); IMMATURE GRANULOCYTES 0.4 % (0-5); MCH 28.5 pg (26.0-34.0); MCV 89.1 fL (80.0-100.0); MEAN PLATELET VOLUME 10.5 fL (7.4-10.4); MONOCYTES 10.4 % (2-11); NEUTROPHILS 70.2 % (40-80); PLATELET COUNT 188 10x3/uL (130-400); RDW 14.6 % (11.5-14.5); WBC 10.2 10x3/uL (4.8-10.8)
[2019-01-12 06:05] LABS: ALBUMIN 3.3 g/dL (3.4-5.0); ANION GAP 10.4 mmol/L (8-16); BILIRUBIN - TOTAL 0.32 mg/dL (0.2-1.3); CALCIUM 8.8 mg/dL (8.5-10.1); CARBON DIOXIDE 39.4 mmol/L (21.0-32.0); CREATININE - SERUM 0.9 mg/dL (0.6-1.3); MAGNESIUM - SERUM 2.2 mg/dL (1.8-2.4); POTASSIUM - SERUM 4.8 mmol/L (3.5-5.1); PROTEIN - SERUM 7.1 g/dL (6.4-8.2)
[2019-01-12 10:02] VITALS: BP 131/71
--- NOTE | 2019-01-12 13:51 | MORECARE ---
CASE MANAGEMENT DISCHARGE SUMMARY PATIENT: MAYURI CHILD UNIT: [id number] ADM DATE: 01/08/19 AGE: 53 : 63 SEX: F ROOM/BED: D.6570 AUTHOR: MARY,DOC PHYSICIAN: REFERRING PHYSICIAN: ELLIS CALGE MD DATE OF SERVICE: 01/12/19 Discharge Plan Patient Name: MAYURI CHILD Facility: [facility]:[place] : 1965 Planned Disposition: Penitentiary Facility Anticipated Discharge Date: Discharge Date: Expected LOS: Initial Reviewer: [email or web address] Initial Review Date: 01/07/2019 Generated: 01/12/19 2:51 pm DCP- Discharge Planning Updated by [email or web address]: Rosa Amin on 01/10/19 2:[address] CM RECIEVED CALL FROM NANCY @ [facility] SHE STATED THAT THEY HAD DENIED BOTH HER AND HER SISTER KATHLEEN FOR PLACEMENT. CM SPOKE WITH PATIENT SHE STATED THAT THE [facility] WAS HER SECOND CHOICE. PATIENT ALSO STATED THAT SHE WAS WILLING TO GO ANYWHERE LOCALLY THAT WOULD ACCEPT THEM BOTH LONG IT WAS A NICE FACILITY. CM SENT RECORDS TO THE [facility] AND SPOKE WITH SHELLY NAQVI OF [place]. CM WILL CONTINUE TO FOLLOW AND ASSIST WITH DISCHARGE PLANNING / NEEDS. DCP- Discharge Planning Updated by [id number]: Rosa Amin on 01/09/19 5:[address] Patient Name: MAYURI CHILD Admission Status: ER Accout number: [id number] Admission Date: 01-07-2019 : 1965 Admission Diagnosis: Attending: ELLIS CAGLE Current LOS: 2 Anticipated DC Date: Planned Disposition: Penitentiary Facility Primary Insurance: MEDICARE A & B Discharge Planning Comments: CM met with patient at bedside. Patient states that she lives at home with her sister Kathleen Bajwa (whom is also in hospital) and her sister's acquaintance ( wouldn't give CM name.) Patient states this man is in hospital at [facility] with pneumonia that's why they came here. Patient wishes for both her sister and her to be admitted to SNF for rehab upon discharge. SHEN signed for #1 [place], #2 [place]. Patient states she only has a walker. She states she can't have home 02 because she has a gas stove. CM will send records to [place] and patient will also need EVELIN prior to discharge. CM will continue to follow and assist as needed with discharge planning / needs. Hospital Sales Representative: Rosa Amin DCPIA - Discharge Planning Initial Assessment Updated by [id number]: Rosa Amin on 01/09/19 6:16 pm * Is the patient Alert and Oriented? Yes * How many steps to enter\exit or inside your home? * PCP NO PCP * Pharmacy [facility] * Preadmission Environment Home with Family * ADLs Partial Dependent * Partial ADLs (Assistance needed) Ambulation * Equipment Walker * List name and contact numbers for known caregivers / representatives who currently or will assist patient after discharge: KATHLEEN BAJWA - SISTER- UNKNOWN * Verbal permission to speak to the caregivers and representatives has been obtained from the patient. Yes * Community resources currently utilized Home Health * Please name any agencies selected above. [facility] * Additional services required to return to the preadmission environment? No * Can the patient safely return to the preadmission environment? Yes * Has this patient been hospitalized within the prior 30 days at any hospital? Yes Last DP export: 01/10/19 2:45 pm Patient Name: MAYURI CHILD Page [id number] at 1351 All edits/amendments must be made on the electronic document DICTATION DATE: 01/12/19 1350 VOCAL PERFORMER: DENISE 01/12/19 1350 RPT#: [id number] [place] DATE: STATUS: ADM IN [facility] [address] [place] [address] END OF REPORT
--- NOTE | 2019-01-12 14:31 | MORECARE ---
CASE MANAGEMENT DISCHARGE SUMMARY PATIENT: MAYURI CHILD UNIT: [id number] ADM DATE: 01/08/19 AGE: 53 : 63 SEX: F ROOM/BED: D.2120 AUTHOR: MARY,DOC PHYSICIAN: REFERRING PHYSICIAN: ELLIS CAGLE MD DATE OF SERVICE: 01/12/19 Discharge Plan Patient Name: MAYURI CHILD Facility: [facility]:[place] : 1965 Planned Disposition: Detention Facility Anticipated Discharge Date: Discharge Date: Expected LOS: Initial Reviewer: [email or web address] Initial Review Date: 01/07/2019 Generated: 01/12/19 3:31 pm Comments DCP- Discharge Planning Updated by [email or web address]: Vane Bee on 01/12/19 1:[address] Patient Name: MAYURI CHILD Encounter No: [id number] : 1965 Primary Insurance: MEDICARE A & B Anticipated DC Date: Planned Disposition: Detention Facility External Planned [facility]ARE REHAB BED DCP follow-up note: CM COMPLETED EVELIN SCREENING WITH PT'S ASSISTANCE AND OBTAINED SIGNATURE FROM ROSY SNYDER. PT INFORMED CM THAT ZARINA HAYTIAdilson IS WORKING ON GETTING SHE AND HER SISTER INTO [place] IN [place] TO BE CLOSER TO THEIR FAMILY. CM PROVIDED CHOICE LETTER FOR PT WHO SIGNED FOR [facility]. IMPORTANT MESSAGE FROM MEDICARE PROVIDED AND EXPLAINED. CM SPOKE TO [facility], , WHO HAS FORWARDED REFERRAL TO [place] FROM [facility] AND HAS OBTAINED AGREEMENT FROM PT AND HER SISTER. CM FAXED UPDATE TO [facility] AT [phone]. CM FAXED EVELIN SCREENING TO [employer]. CM WAITING EVELIN SCREENING AND ADMISSION DETERMINATION FROM [facility]. VANE BEE, CASE MANAGEMENT DCP- Discharge Planning Updated by [email or web address]: Rosa Amin on 01/10/19 2:[address] CM RECIEVED CALL FROM NANCY [employer] SHE STATED THAT THEY HAD DENIED BOTH HER AND HER SISTER KATHLEEN FOR PLACEMENT. CM SPOKE WITH PATIENT SHE STATED THAT THE [facility] WAS HER SECOND CHOICE. PATIENT ALSO STATED THAT SHE WAS WILLING TO GO ANYWHERE LOCALLY THAT WOULD ACCEPT THEM BOTH LONG IT WAS A NICE FACILITY. CM SENT RECORDS TO THE [facility] AND SPOKE WITH SHELLY NAQVI OF [place]. CM WILL CONTINUE TO FOLLOW AND ASSIST WITH DISCHARGE PLANNING / NEEDS. DCP- Discharge Planning Updated by [email or web address]: Rosa Amin on 01/09/19 5:[address] Patient Name: MAYURI CHILD Admission Status: ER Accout number: [id number] Admission Date: 01-07-2019 : 1965 Admission Diagnosis: Attending: ELLIS CAGLE Current LOS: 2 Anticipated DC Date: Planned Disposition: Detention Facility Primary Insurance: MEDICARE A & B Discharge Planning Comments: CM met with patient at bedside. Patient states that she lives at home with her sister Kathleen Bajwa (whom is also in hospital) and her sister's acquaintance ( wouldn't give CM name.) Patient states this man is in hospital at [facility] with pneumonia that's why they came here. Patient wishes for both her sister and her to be admitted to SNF for rehab upon discharge. [facility] signed for #1 [place], [place]. Patient states she only has a walker. She states she can't have home 02 because she has a gas stove. CM will send records to [place] and patient will also need EVELIN prior to discharge. CM will continue to follow and assist as needed with discharge planning / needs. Basket Filler: Rosa Amin DCPIA - Discharge Planning Initial Assessment Updated by [id number]: Rosa Amin on 01/09/19 6:16 pm * Is the patient Alert and Oriented? Yes * How many steps to enter\exit or inside your home? * PCP NO PCP * Pharmacy [facility] * Preadmission Environment Home with Family * ADLs Partial Dependent * Partial ADLs (Assistance needed) Ambulation * Equipment Walker * List name and contact numbers for known caregivers / representatives who currently or will assist patient after discharge: KATHLEEN BAJWA - SISTER- UNKNOWN * Verbal permission to speak to the caregivers and representatives has been obtained from the patient. Yes * Community resources currently utilized Home Health * Please name any agencies selected above. [facility] * Additional services required to return to the preadmission environment? No * Can the patient safely return to the preadmission environment? Yes * Has this patient been hospitalized within the prior 30 days at any hospital? Yes Last DP export: 01/12/19 12:51 p Patient Name: MAYURI CIHLD Page [id number] at 1431 All edits/amendments must be made on the electronic document DICTATION DATE: 01/12/191429 PRE ASSEMBLY WIRER: DENISE 01/12/191429 RPT#: [id number] DC DATE: STATUS: ADM IN [facility] [address] [place] [address] END OF REPORT
--- NOTE | 2019-01-12 15:18 | MORECARE ---
CASE MANAGEMENT DISCHARGE SUMMARY PATIENT: MAYURI CHILD UNIT: [id number] ADM DATE: 01/08/19 AGE: 53 : 63 SEX: F ROOM/BED: D.2120 AUTHOR: MARY,DOC PHYSICIAN: REFERRING PHYSICIAN: ELLIS CAGLE MD DATE OF SERVICE: 01/12/19 Discharge Plan Patient Name: MAYURI CHILD Facility: [facility]:[place] : 1965 Planned Disposition: Custodial Facility Anticipated Discharge Date: Discharge Date: Expected LOS: Initial Reviewer: [email or web address] Initial Review Date: 01/07/2019 Generated: 01/12/19 4:17 pm Comments DCP- Discharge Planning Updated by [email or web address]: Vane Bee on 01/12/19 1:[address] Patient Name: MAYURI CHILD Encounter No: [id number] : 1965 Primary Insurance: MEDICARE A & B Anticipated DC Date: Planned Disposition: Custodial Facility External [facility]HAB BED DCP follow-up note: CM COMPLETED EVELIN SCREENING WITH PT'S ASSISTANCE AND OBTAINED SIGNATURE FROM ROSY SNYDER. PT INFORMED CM THAT ZARINA VREDENBURGHDeepika IS WORKING ON GETTING SHE AND HER SISTER INTO [place] IN [place] TO BE CLOSER TO THEIR FAMILY. CM PROVIDED CHOICE LETTER FOR PT WHO SIGNED [facility]. IMPORTANT MESSAGE FROM MEDICARE PROVIDED AND EXPLAINED. CM SPOKE TO [facility], , WHO HAS FORWARDED REFERRAL TO [place] FROM [facility] AND HAS OBTAINED AGREEMENT FROM PT AND HER SISTER. CM FAXED UPDATE TO [facility] AT [phone]. CM FAXED EVELIN SCREENING TO [employer]. CM WAITING EVELIN SCREENING AND ADMISSION DETERMINATION FROM [facility]. VANE BEE, CASE MANAGEMENT DCP- Discharge Planning Updated by [id number]: Rosa Amin on 01/10/19 2:[address] CM RECIEVED CALL FROM NANCY [employer] SHE STATED THAT THEY HAD DENIED BOTH HER AND HER SISTER KATHLEEN FOR PLACEMENT. CM SPOKE WITH PATIENT SHE STATED THAT THE [facility] WAS HER SECOND CHOICE. PATIENT ALSO STATED THAT SHE WAS WILLING TO GO ANYWHERE LOCALLY THAT WOULD ACCEPT THEM BOTH LONG IT WAS A NICE FACILITY. CM SENT RECORDS TO THE [facility] AND SPOKE WITH SHELLY NAQVI OF [place]. CM WILL CONTINUE TO FOLLOW AND ASSIST WITH DISCHARGE PLANNING / NEEDS. DCP- Discharge Planning Updated by [id number]: Rosa Amin on 01/09/19 5:[address] Patient Name: MAYURI CHILD Admission Status: ER Accout number: [id number] Admission Date: 01-07-2019 : 1965 Admission Diagnosis: Attending: ELLIS CAGLE Current LOS: 2 Anticipated DC Date: Planned Disposition: Custodial Facility Primary Insurance: MEDICARE A & B Discharge Planning Comments: CM met with patient at bedside. Patient states that she lives at home with her sister Kathleen Bajwa (whom is also in hospital) and her sister's acquaintance ( wouldn't give CM name.) Patient states this man is in hospital at [facility] with pneumonia that's why they came here. Patient wishes for both her sister and her to be admitted to SNF for rehab upon discharge. SHEN signed for #1 [place], #2 [place]. Patient states she only has a walker. She states she can't have home 02 because she has a gas stove. CM will send records to [place] and patient will also need [place]EL[place] prior to discharge. CM will continue to follow and assist as needed with discharge planning / needs. Calenderer: Rosa Amin DCPIA - Discharge Planning Initial Assessment Updated by [email or web address]: Rosa Amin on 01/09/19 6:16 pm * Is the patient Alert and Oriented? Yes * How many steps to enter\exit or inside your home? * PCP NO PCP * Pharmacy [facility] * Preadmission Environment Home with Family * ADLs Partial Dependent * Partial ADLs (Assistance needed) Ambulation * Equipment Walker * List name and contact numbers for known caregivers / representatives who currently or will assist patient after discharge: KATHLEEN BAJWA - SISTER- UNKNOWN * Verbal permission to speak to the caregivers and representatives has been obtained from the patient. Yes * Community resources currently utilized Home Health * Please name any agencies selected above. [facility] * Additional services required to return to the preadmission environment? No * Can the patient safely return to the preadmission environment? Yes * Has this patient been hospitalized within the prior 30 days at any hospital? Yes External Providers External Provider: OTHER-OTHER Next Contact Date: 01/13/2019 Service Request Date: Service Type: Resolution: Reviewer: Comments: External Provider: KLELEY Kessler Next Contact Date: 01/12/2019 Service Request Date: Service Type: Resolution: Reviewer: Comments: Coverage Notice Reviewer: [id number] Bee Notice Issued Date-Time: 01/12/2019 13:50 Notice Type: IM Discharge Notice Notice Delivered To: Patient Relationship to Patient: Trash Collector Name: Delivery Method: HAND - Hand Delivered Samantha Days: Prior Verbal Notification: Recipient Understood Notice: Yes Recipient Signature: Yes Med Rec Note Co-signed by Attending: Coverage Notice Comment: Reviewer: [id number] Bee Notice Issued Date-Time: 01/12/2019 13:50 Notice Type: Patient Choice Letter Notice Delivered To: Patient Relationship to Patient: Trash Collector Name: Delivery Method: HAND - Hand Delivered Samantha Days: Prior Verbal Notification: Recipient Understood Notice: Yes Recipient Signature: Yes Med Rec Note Co-signed by Attending: Coverage Notice Comment: [facility], [facility] Last DP export: 01/12/19 1:31 p Patient Name: MAYURI CHILD Page [id number] at 1518 All edits/amendments must be made on the electronic document DICTATION DATE: 01/12/191516 OVEN STRIPPER: DENISE 01/12/191516 RPT#: [id number] DC DATE: STATUS: ADM IN [facility] [address] [place] [address] END OF REPORT
[2019-01-12 15:34] VITALS: BP 113/72
[2019-01-12 20:00] VITALS: BP 130/68
[2019-01-13] VITALS (7 sets, daily range): BP systolic 109–154; BP diastolic 55–88
--- NOTE | 2019-01-13 07:58 | MORECARE ---
CASE MANAGEMENT DISCHARGE SUMMARY PATIENT: MAYURI CHILD UNIT: [id number] ADM DATE: 01/08/19 AGE: 53 : 63 SEX: F ROOM/BED: D.2280 AUTHOR: MARY,DOC PHYSICIAN: REFERRING PHYSICIAN: ELLIS CAGLE MD DATE OF SERVICE: 01/13/19 Discharge Plan Patient Name: MAYURI CHILD Facility: [facility]:[place] : 1965 Planned Disposition: Snf Facility Anticipated Discharge Date: 01/13/19 Discharge Date: Expected LOS: 5 Initial Reviewer: [id number] Initial Review Date: 01/07/2019 Generated: 01/13/19 8:57 am Comments DCP- Discharge Planning Updated by [id number]: Vane Bee on 01/12/19 1:[address] Patient Name: MAYURI CHILD Encounter No: [id number] : 1965 Primary Insurance: MEDICARE A & B Anticipated DC Date: Planned Disposition: Snf Facility External Planned Provider: [facility], MEDICARE REHAB BED DCP follow-up note: CM COMPLETED [facility] SCREENING WITH PT'S ASSISTANCE AND OBTAINED SIGNATURE FROM ROSY SNYDER. PT INFORMED CM THAT ZARINA H[place] H[place]Deepika IS WORKING ON GETTING SHE AND HER SISTER INTO [place] IN [place] TO BE CLOSER TO THEIR FAMILY. CM PROVIDED CHOICE LETTER FOR PT WHO SIGNED FOR [facility]. IMPORTANT MESSAGE FROM MEDICARE PROVIDED AND EXPLAINED. CM SPOKE TO [facility], , WHO HAS FORWARDED REFERRAL TO [facility] FROM [facility] AND HAS OBTAINED AGREEMENT FROM PT AND HER SISTER. CM FAXED UPDATE TO LORNE AT [phone]. CM FAXED [facility] SCREENING TO [facility]. CM WAITING [facility] SCREENING AND ADMISSION DETERMINATION FROM [facility]. VANE BEE, CASE MANAGEMENT DCP- Discharge Planning Updated by [id number]: Rosa Amin on 01/10/19 2:[address] CM RECIEVED CALL FROM NANCY [facility] SHE STATED THAT THEY HAD DENIED BOTH HER AND HER SISTER KATHLEEN FOR PLACEMENT. CM SPOKE WITH PATIENT SHE STATED THAT THE [facility] WAS HER SECOND CHOICE. PATIENT ALSO STATED THAT SHE WAS WILLING TO GO ANYWHERE LOCALLY THAT WOULD ACCEPT THEM BOTH LONG IT WAS A NICE FACILITY. CM SENT RECORDS TO THE [facility] AND SPOKE WITH SHELLY NAQVI OF [facility]. CM WILL CONTINUE TO FOLLOW AND ASSIST WITH DISCHARGE PLANNING / NEEDS. DCP- Discharge Planning Updated by [id number]: Rosa Amin on 01/09/19 5:[address] Patient Name: MAYURI CHILD Admission Status: ER Accout number: [id number] Admission Date: 01-07-2019 : 1965 Admission Diagnosis: Attending: ELLIS CAGLE Current LOS: 2 Anticipated DC Date: Planned Disposition: Snf Facility Primary Insurance: MEDICARE A & B Discharge Planning Comments: CM met with patient at bedside. Patient states that she lives at home with her sister Kathleen Bajwa (whom is also in hospital) and her sister's acquaintance ( wouldn't give CM name.) Patient states this man is in hospital at [facility] with pneumonia that's why they came here. Patient wishes for both her sister and her to be admitted to SNF for rehab upon discharge. SHEN signed for #1 [facility], #[facility]. Patient states she only has a walker. She states she can't have home 02 because she has a gas stove. CM will send records to [facility] and patient will also need [facility] prior to discharge. CM will continue to follow and assist as needed with discharge planning / needs. Motor Route Carrier: Rosa Amin DCPIA - Discharge Planning Initial Assessment Updated by [id number]: Rosa Amin on 01/09/19 6:16 pm * Is the patient Alert and Oriented? Yes * How many steps to enter\exit or inside your home? * PCP NO PCP * Pharmacy [facility] * Preadmission Environment Home with Family * ADLs Partial Dependent * Partial ADLs (Assistance needed) Ambulation * Equipment Walker * List name and contact numbers for known caregivers / representatives who currently or will assist patient after discharge: KATHLEEN BAJWA - SISTER- UNKNOWN * Verbal permission to speak to the caregivers and representatives has been obtained from the patient. Yes * Community resources currently utilized Home Health * Please name any agencies selected above. [facility] * Additional services required to return to the preadmission environment? No * Can the patient safely return to the preadmission environment? Yes * Has this patient been hospitalized within the prior 30 days at any hospital? Yes Coverage Notice Reviewer: [id number] Bee Notice Issued Date-Time: 01/12/2019 13:50 Notice Type: IM Discharge Notice Notice Delivered To: Patient Relationship to Patient: Day Care Center Director Name: Delivery Method: HAND - Hand Delivered Samantha Days: Prior Verbal Notification: Recipient Understood Notice: Yes Recipient Signature: Yes Med Rec Note Co-signed by Attending: Coverage Notice Comment: Reviewer: [id number] Bee Notice Issued Date-Time: 01/12/2019 13:50 Notice Type: Patient Choice Letter Notice Delivered To: Patient Relationship to Patient: Day Care Center Director Name: Delivery Method: HAND - Hand Delivered Samantha Days: Prior Verbal Notification: Recipient Understood Notice: Yes Recipient Signature: Yes Med Rec Note Co-signed by Attending: Coverage Notice Comment: [facility], NLR Last DP export: 01/12/19 2:17 p Patient Name: MAYURI CHILD Page 13846 at 0758 All edits/amendments must be made on the electronic document DICTATION DATE: 01/13/19 0757 RECORD LABEL INTERN: DENISE 01/13/19 0757 RPT#: [id number] DC DATE: STATUS: ADM IN [facility] [address] [place] [address] END OF REPORT
--- NOTE | 2019-01-13 08:04 | MORECARE ---
CASE MANAGEMENT DISCHARGE SUMMARY PATIENT: MAYURI CHILD UNIT: [id number] ADM DATE: 01/08/19 AGE: 53 : 63 SEX: F ROOM/BED: D.3310 AUTHOR: MARY,DOC PHYSICIAN: REFERRING PHYSICIAN: ELLIS CAGLE MD DATE OF SERVICE: 01/13/19 Discharge Plan Patient Name: MAYURI CHILD Facility: [facility]:[place] : 1965 Planned Disposition: Assisted Facility Anticipated Discharge Date: 01/13/19 Discharge Date: Expected LOS: 5 Initial Reviewer: [email or web address] Initial Review Date: 01/07/2019 Generated: 01/13/19 9:04 am Comments DCP- Discharge Planning Updated by [email or web address]: Vane Bee on 01/13/19 7:[address] Patient Name: MAYURI CHILD Encounter No: [id number] : 1965 Primary Insurance: MEDICARE A & B Anticipated DC Date: 01-13-2019 Planned Disposition: Assisted Facility External Planned Provider:[facility], MEDICARE REHAB BED DCP follow-up note: CM RECEIVED EV[facility] EXEMPTION [facility] AND MAY ENTER [facility] CHO[facility]. CM NOTIFIED LORNE OF [employer], . CM FAXED EVELIN APPROVAL TO LORNE AT [phone]. CM WAITING ADMISSION DETERMINATION AND TRILOGY ARRANGEMENT FROM [facility]. VANE BEE, CASE MANAGEMENT DCP- Discharge Planning Updated by [id number]: Vane Bee on 01/12/19 1:[address] Patient Name: MAYURI CHILD Encounter No: [id number] : 1965 Primary Insurance: MEDICARE A & B Anticipated DC Date: Planned Disposition: Assisted Facility External Planned Provider: [facility], MEDICARE REHAB BED DCP follow-up note: CM COMPLETED [facility] SCREENING WITH PT'S ASSISTANCE AND OBTAINED SIGNATURE FROM ROSY SNYDER. PT INFORMED CM THAT RAJI IS WORKING ON GETTING SHE AND HER SISTER INTO [place] IN [place] TO BE CLOSER TO THEIR FAMILY. CM PROVIDED CHOICE LETTER FOR PT WHO SIGNED FOR [facility]. IMPORTANT MESSAGE FROM MEDICARE PROVIDED AND EXPLAINED. DRISS SPOKE TO LORNE OF [facility], , WHO HAS FORWARDED REFERRAL TO [facility] FROM THE [facility] AND HAS OBTAINED AGREEMENT FROM PT AND HER SISTER. CM FAXED UPDATE TO LORNE AT [phone]. CM FAXED [facility] SCREENING TO [facility]. CM WAITING [facility] SCREENING AND ADMISSION DETERMINATION FROM [facility]. VANE BEE, CASE MANAGEMENT DCP- Discharge Planning Updated by [id number]: Rosa Amin on 01/10/19 2:[address] CM RECIEVED CALL FROM NANCY @ [facility] SHE STATED THAT THEY HAD DENIED BOTH HER AND HER SISTER KATHLEEN FOR PLACEMENT. CM SPOKE WITH PATIENT SHE STATED THAT THE [facility] WAS HER SECOND CHOICE. PATIENT ALSO STATED THAT SHE WAS WILLING TO GO ANYWHERE LOCALLY THAT WOULD ACCEPT THEM BOTH LONG IT WAS A NICE FACILITY. CM SENT RECORDS TO THE [facility] AND SPOKE WITH SHELLY NAQVI OF [facility]. CM WILL CONTINUE TO FOLLOW AND ASSIST WITH DISCHARGE PLANNING / NEEDS. DCP- Discharge Planning Updated by [id number]: Rosa Amin on 01/09/19 5:[address] Patient Name: MAYURI CHILD Admission Status: ER Accout number: [id number] Admission Date: 01-07-2019 : 1965 Admission Diagnosis: Attending: ELLIS CAGLE Current LOS: 2 Anticipated DC Date: Planned Disposition: Assisted Facility Primary Insurance: MEDICARE A & B Discharge Planning Comments: CM met with patient at bedside. Patient states that she lives at home with her sister Kathleen Bajwa (whom is also in hospital) and her sister's acquaintance ( wouldn't give CM name.) Patient states this man is in hospital at [facility] with pneumonia that's why they came here. Patient wishes for both her sister and her to be admitted to SNF for rehab upon discharge. SHEN signed for #1 [place], #[facility]. Patient states she only has a walker. She states she can't have home 02 because she has a gas stove. CM will send records to [facility] and patient will also need [facility] prior to discharge. CM will continue to follow and assist as needed with discharge planning / needs. Ammonia Refrigeration Technician: Rosa Amin DCPIA - Discharge Planning Initial Assessment Updated by [id number]: Rosa Montanezr on 01/09/19 6:16 pm * Is the patient Alert and Oriented? Yes * How many steps to enter\exit or inside your home? * PCP NO PCP * Pharmacy [facility] * Preadmission Environment Home with Family * ADLs Partial Dependent * Partial ADLs (Assistance needed) Ambulation * Equipment Walker * List name and contact numbers for known caregivers / representatives who currently or will assist patient after discharge: KATHLEEN BAJWA - SISTER- UNKNOWN * Verbal permission to speak to the caregivers and representatives has been obtained from the patient. Yes * Community resources currently utilized Home Health * Please name any agencies selected above. [facility] * Additional services required to return to the preadmission environment? No * Can the patient safely return to the preadmission environment? Yes * Has this patient been hospitalized within the prior 30 days at any hospital? Yes Coverage Notice Reviewer: [id number] Blanco Bee Notice Issued Date-Time: 01/12/2019 13:50 Notice Type: IM Discharge Notice Notice Delivered To: Patient Relationship to Patient: Custodial Foreman Name: Delivery Method: HAND - Hand Delivered Samantha Days: Prior Verbal Notification: Recipient Understood Notice: Yes Recipient Signature: Yes Med Rec Note Co-signed by Attending: Coverage Notice Comment: Reviewer: [id number] Bee Notice Issued Date-Time: 01/12/2019 13:50 Notice Type: Patient Choice Letter Notice Delivered To: Patient Relationship to Patient: Custodial Foreman Name: Delivery Method: HAND - Hand Delivered Samantha Days: Prior Verbal Notification: Recipient Understood Notice: Yes Recipient Signature: Yes Med Rec Note Co-signed by Attending: Coverage Notice Comment: [facility], NLR Last DP export: 01/13/19 6:58 a Patient Name: MAYURI CHILD Page 17278 at 0804 All edits/amendments must be made on the electronic document DICTATION DATE: 01/13/19803 ASSISTANT PRODUCTION EDITOR: DENISE 01/13/19803 RPT#: [id number] DC DATE: STATUS: ADM IN [facility] [address] [place] [address] END OF REPORT
[2019-01-13 08:05] LABS: HEMATOCRIT 44.6 % (36.0-48.0); HEMOGLOBIN 14.5 g/dL (12-16); LYMPHOCYTES 14.4 % (15-50); MCH 28.5 pg (26.0-34.0); MCHC 32.5 g/dL (31.0-37.0); MCV 87.6 fL (80.0-100.0); MEAN PLATELET VOLUME 11.1 fL (7.4-10.4); NEUTROPHILS 78.9 % (40-80); PLATELET COUNT 189 10x3/uL (130-400); RBC 5.09 10x6/uL (4.00-5.40); RDW 14.3 % (11.5-14.5)
[2019-01-13 08:10] LABS: ALBUMIN 3.5 g/dL (3.4-5.0); ANION GAP 7.8 mmol/L (8-16); BILIRUBIN - TOTAL 0.37 mg/dL (0.2-1.3); CALCIUM 8.9 mg/dL (8.5-10.1); MAGNESIUM - SERUM 2.4 mg/dL (1.8-2.4); POTASSIUM - SERUM 4.3 mmol/L (3.5-5.1); PROTEIN - SERUM 7.7 g/dL (6.4-8.2); VANCOMYCIN - RANDOM 14.5 ug/mL (10.0-20.0)
[2019-01-13 08:37] LABS: CARBON DIOXIDE 41.5 mmol/L (21.0-32.0)
--- NOTE | 2019-01-13 11:14 | MORECARE ---
CASE MANAGEMENT DISCHARGE SUMMARY PATIENT: MAYURI CHILD UNIT: [id number] ADM DATE: 01/08/19 AGE: 53 : 63 SEX: F ROOM/BED: D.2272 AUTHOR: MARY,DOC PHYSICIAN: REFERRING PHYSICIAN: ELLIS CAGLE MD DATE OF SERVICE: 01/13/19 Discharge Plan Patient Name: MAYURI CHILD Facility: [facility]:[place] : 1965 Planned Disposition: Long Term Facility Anticipated Discharge Date: 01/13/19 Discharge Date: Expected LOS: 5 Initial Reviewer: [id number] Initial Review Date: 01/07/2019 Generated: 01/13/19 12:14 pm Comments DCP- Discharge Planning Updated by [id number]: Vane Bee on 01/13/19 10:[address] Patient Name: MAYURI CHILD Encounter No: [id number] : 1965 Primary Insurance: MEDICARE A & B Anticipated DC Date: 01-13-2019 Planned Disposition: Long Term Facility External Planned Provider: [facility], MEDICARE REHAB BED DCP follow-up note: CM SPOKE TO LETHA TYLER OF [facility] WHO INFORMED CM THAT THEY WILL ACCEPT PT AT DISCHARGE, [facility] WILL PROVIDE TRILOGY FOR PT AT THE CUSTODIAL. SHE HAS NOTIFIED PT ALREADY. CM NOTIFIED DR CAGLE WHO ADVISED PT MAY BE READY FOR DISCHARGE 01-16-19. FOR DISHCHARGE, FAX DISCHARGE INFORMATION TO [facility], . NURSE REPORT TO BE CALLED TO [facility] AT [phone]. PT TO TRANSPORT VIA AMBULANCE. Vane Bee, CASE KALI DCP- Discharge Planning Updated by [id number]: Vane Bee on 01/13/19 7:[address] Patient Name: MAYURI CHILD Encounter No: [id number] : 1965 Primary Insurance: MEDICARE A & B Anticipated DC Date: 01-13-2019 Planned Disposition: Long Term Facility External Planned Provider:[facility], MEDICARE REHAB BED DCP follow-up note: CM RECEIVED EVELIN EXEMPTION [facility] AND MAY ENTER [facility] HOME OF CHOICE. CM [facility]IF[facility], . CM FAXED EVEL[facility] APPROVAL TO LORNE AT [phone]. CM WAITING ADMISSION DETERMINATION AND TRILOGY ARRANGEMENT FROM [facility]. VANE BEE, CASE MANAGEMENT DCP- Discharge Planning Updated by [id number]: Vane Bee on 01/12/19 1:[address] Patient Name: MAYURI CHILD Encounter No: [id number] : 1965 Primary Insurance: MEDICARE A & B Anticipated DC Date: Planned Disposition: Long Term Facility External Planned Provider: [facility], MEDICARE REHAB BED DCP follow-up note: CM COMPLETED [facility] SCREENING WITH PT'S ASSISTANCE AND OBTAINED SIGNATURE FROM [facility]Y SNYDER. PT INFORMED CM THAT RAJI IS WORKING ON GETTING SHE AND HER SISTER INTO [facility] IN [place] TO BE CLOSER TO THEIR FAMILY. CM PROVIDED CHOICE LETTER FOR PT WHO SIGNED FOR [facility]. IMPORTANT MESSAGE FROM MEDICARE PROVIDED AND EXPLAINED. CM SPOKE TO LORNE OF [facility], , WHO HAS FORWARDED REFERRAL TO [facility] FROM [facility][1] AND HAS OBTAINED AGREEMENT FROM PT AND HER SISTER. CM FAXED UPDATE TO LORNE AT [phone]. CM FAXED [facility] SCREENING TO [facility]. CM WAITING EVELIN SCREENING AND ADMISSION DETERMINATION FROM [facility]. VANE BEE CASE MANAGEMENT DCP- Discharge Planning Updated by [id number]: Rosa Amin on 01/10/19 2:[address] CM RECIEVED CALL FROM NANCY [facility] SHE STATED THAT THEY HAD DENIED BOTH HER AND HER SISTER KATHLEEN FOR PLACEMENT. CM SPOKE WITH PATIENT SHE STATED THAT THE [facility] WAS HER SECOND CHOICE. PATIENT ALSO STATED THAT SHE WAS WILLING TO GO ANYWHERE LOCALLY THAT WOULD ACCEPT THEM BOTH LONG IT WAS A NICE FACILITY. CM SENT RECORDS TO THE [facility][1] AND SPOKE WITH SHELLY NAQVI OF [facility]. CM WILL CONTINUE TO FOLLOW AND ASSIST WITH DISCHARGE PLANNING / NEEDS. DCP- Discharge Planning Updated by [id number]: Rosa Amni on 01/09/19 5:[address] Patient Name: MAYURI CHILD Admission Status: ER Accout number: [id number] Admission Date: 01-07-2019 : 1965 Admission Diagnosis: Attending: ELLIS CAGLE Current LOS: 2 Anticipated DC Date: Planned Disposition: Long Term Facility Primary Insurance: MEDICARE A & B Discharge Planning Comments: CM met with patient at bedside. Patient states that she lives at home with her sister Kathleen Bajwa (whom is also in hospital) and her sister's acquaintance ( wouldn't give CM name.) Patient states this man is in hospital at [facility] with pneumonia that's why they came here. Patient wishes for both her sister and her to be admitted to SNF for rehab upon discharge. SHEN signed for #1 [place], #2 [facility]. Patient states she only has a walker. She states she can't have home 02 because she has a gas stove. CM will send records to [facility] [place] and patient will also need [facility] prior to discharge. CM will continue to follow and assist as needed with discharge planning / needs. Plant And Maintenance Technician: Rosa Amin DCPIA - Discharge Planning Initial Assessment Updated by [id number]: Rosa Amin on 01/09/19 6:16 pm * Is the patient Alert and Oriented? Yes * How many steps to enter\exit or inside your home? * PCP NO PCP * Pharmacy [facility] * Preadmission Environment Home with Family * ADLs Partial Dependent * Partial ADLs (Assistance needed) Ambulation * Equipment Walker * List name and contact numbers for known caregivers / representatives who currently or will assist patient after discharge: KATHLEEN BAJWA - SISTER- UNKNOWN * Verbal permission to speak to the caregivers and representatives has been obtained from the patient. Yes * Community resources currently utilized Home Health * Please name any agencies selected above. [facility] * Additional services required to return to the preadmission environment? No * Can the patient safely return to the preadmission environment? Yes * Has this patient been hospitalized within the prior 30 days at any hospital? Yes Coverage Notice Reviewer: [email or web address] Blanco Bee Notice Issued Date-Time: 01/12/2019 13:50 Notice Type: IM Discharge Notice Notice Delivered To: Patient Relationship to Patient: [employer] Faculty Name: Delivery Method: HAND - Hand Delivered Samantha Days: Prior Verbal Notification: Recipient Understood Notice: Yes Recipient Signature: Yes Med Rec Note Co-signed by Attending: Coverage Notice Comment: Reviewer: [id number] Bee Notice Issued Date-Time: 01/12/2019 13:50 Notice Type: Patient Choice Letter Notice Delivered To: Patient Relationship to Patient: [employer] Faculty Name: Delivery Method: HAND - Hand Delivered Samantha Days: Prior Verbal Notification: Recipient Understood Notice: Yes Recipient Signature: Yes Med Rec Note Co-signed by Attending: Coverage Notice Comment: [facility], NLR Last DP export: 01/13/19 7:04 a Patient Name: MAYURI CHILD Page 85802 at 1114 All edits/amendments must be made on the electronic document DICTATION DATE: 01/13/19 111 TRASH COLLECTOR: DENISE 01/13/19 1114 RPT#: [id number] DC DATE: STATUS: ADM IN [facility] [address] [place] [address] END OF REPORT
--- NOTE | 2019-01-13 15:08 | CN ---
PATIENT NAME:MAYURI HAM MEDICAL RECORD: [id number] : [birth year] LOCATION:D. D.2120 ADMIT DATE: 01/08/19 ACCOUNT: [id number] CONSULTING PHYSICIAN: PRAVIN DE ANDA MD REFERRING PHYSICIAN: TROY BARRERA MD DATE OF CONSULTATION: 01/08/2019 CONSULT REQUESTING PHYSICIAN: Troy Barrera MD REASON FOR CONSULTATION: Pyokq-me-vofpkmf hypoxic hypercapnic respiratory failure. HISTORY OF PRESENT ILLNESS: Ms. Ham is a 54-year-old morbidly obese lady who has a history of COPD, atrial fibrillation, and morbid obesity. The patient came in with chest pain. She got morphine injection, early this morning, the patient becomes lethargic, obtunded and ABG was done and the patient was in the CO2 narcosis. The patient was given some Narcan and transferred to CV ICU. Now, she is awake and alert. There is no fever and chill, no night sweats. She is also having redness and erythema of the right lower extremity. REVIEW OF SYSTEMS: As in history of present illness. PAST MEDICAL HISTORY: 1. COPD. 2. Seizure disorder. 3. Diabetes mellitus. 4. Congestive heart failure with chronic diastolic dysfunction. 5. Asthma. 6. Chronic back pain. 7. Bipolar disorder. ALLERGIES: SHE IS ALLERGIC TO PENICILLIN, CIPRO, AND TORADOL. MEDICATIONS: [facility] was reviewed. PERSONAL AND SOCIAL HISTORY: The patient is living at home with her sister. The exact smoking and drinking history is unknown. FAMILY HISTORY: Unknown. PHYSICAL EXAMINATION: GENERAL: Now, the patient is lying comfortably. She is not in acute distress. VITAL SIGNS: The blood pressure is 126/71, pulse is 83, respiration 20, temperature is 97.9, and SpO2 94% on 4 liters nasal cannula. HEENT: Conjunctivae are pink. Sclerae are not icteric. NECK: Supple, no JVD. CHEST: The chest excursion is minimal on both sides. There is no wheeze, no rales. HEART: Rhythm regular, normal sound, no murmur. ABDOMEN: Soft, bowel sounds present. No hepatosplenomegaly. RECTAL: Deferred. EXTREMITIES: There is erythema, cellulitis of the right lower extremity. CENTRAL NERVOUS SYSTEM: The patient is awake and alert. CHEST RADIOGRAPH: There is no acute infiltrate. CONSULT REPORT [id number] MAYURI HAM LABORATORY DATA: CBC: The WBC is 6.9, hemoglobin 11.2, hematocrit 36.4, and platelet count 198. Chemistry: Sodium 142, potassium 3.7, BUN is 13, creatinine 0.9, and bicarbonate is 33.5. ABG: The pH is 7.09, pCO2 is 117, pO2 is 154, and bicarbonate is 35.7. IMPRESSION: 1. Mlwwx-dj-grqxexy hypoxic hypercapnic respiratory failure. 2. Respiratory acidosis. 3. Obesity hypoventilation syndrome. 4. Congestive heart failure with chronic diastolic dysfunction. 5. Chronic obstructive pulmonary disease acute exacerbation. 6. Seizure disorder. 7. Cellulitis of the right lower extremity. 8. Morbid obesity. RECOMMENDATION: 1. Continue BiPAP, we can take it off when the patient is eating. 2. Supplemental oxygen to keep the SpO2 above 92%. 3. Albuterol ipratropium nebulizer. 4. Methylprednisolone IV. 5. Continue the empiric vancomycin. 6. Check ammonia levels. 7. Follow up labs and chest radiograph. 8. Follow up on the cardiac echo. Dr. Barrera, thank you for involving me in the care of Ms. Ham. TRANSINT:[id number] Voice Confirmation ID: [id number] DOCUMENT ID: [id number] PRAVIN DE ANDA MD at 1508 CC: [id number] DICTATION DATE: 01/08/19 1530 COMBINING MACHINE OPERATOR: 01/08/19 2342 ADM IN [place] [address] [place] [address]
--- NOTE | 2019-01-13 15:13 | EC ---
PATIENT:MAYURI CHILD DATE OF SERVICE: 01/08/19 SEX: F MEDICAL RECORD: [id number] DATE OF : [birth year] LOCATION:D.M2 D.212 AGE OF PATIENT: 53 ADMISSION DATE: 01/08/19 REFERRING PHYSICIAN: INTERPRETING PHYSICIAN: TWIN FUENTES MD ECHOCARDIOGRAM REPORT ECHO CHARGES 4 ECHO COMPLETE Date: 01/08/19 CLINICAL DIAGNOSIS: A-FIB ECHOCARDIOGRAPHIC MEASUREMENTS (adult normal given) AC root (d.<3.7cm) 2.9 cm LV Septum d (<1.2 cm> 1.5 cm Valve Excursion 1.6 cm LV Septum (systole) 1.8 cm Left Atria (s.<4.0cm> 4.1 cm LVPW d(<1.2cm) 1.4 cm RV (d.<2.3cm) 3.0 cm LVPW (sytole) 1.9 cm LV diastole(<5.6CM) 4.3 cm MV E-F(>70mm/sec) cm LV systole 2.8 cm LVOT Diameter 1.8 cm MV exc.(>10mm) cm Est.ejection fraction (50-75%) % DOPPLER: LVIT cm/sec A 133 cm/sec E 105 cm/sec LA cm/sec RVSP 33.3 mmHg LVOT 104 cm/sec AOP1/2T m/s Asc. Ao 195 cm/sec RVOT 45.0 cm/sec RA cm/sec PA 95.0 cm/sec AV Gradient Peak 15.2 mmHg AV Mean 7.8 mmHg AV Area 1.3 cm MV Gradient Peak 7.2 mmHg MV Mean 3.0 mmHg MV Area cm COMMENTS: Marble Setter: Adrienne ALMANZAR Chief Nurse Executive: Jules Lucero TAPE# PACS Pericardial Effusion N DATE OF SERVICE: 01/08/2019 PROCEDURE: Echocardiogram. FINDINGS: 1. Left ventricular chamber size is within normal limits. Left ventricular systolic function is normal. Overall ejection fraction estimated at 55%. 2. Left atrium, right atrium, and right ventricular chamber sizes are mildly dilated. Left atrium measures 4.1 cm. 3. Valvular structures have normal structure and motion. ECHOCARDIOGRAM REPORT [id number] MAYURI CHILD A 4. Doppler interrogation reveals moderate tricuspid regurgitation, no other valvular insufficiency or stenosis. Pulmonary systolic pressure is estimated 33 mmHg. 5. No evidence of pericardial effusion or left ventricular thrombus. TRANSINT:[id number] Voice Confirmation ID: [id number] DOCUMENT ID: [id number] TWIN FUENTES MD at 1513 CC: [id number] DICTATION DATE: 01/13/19 0854 WORKERS COMPENSATION ADMINISTRATOR: 01/13/19 1202 ADM IN [facility] [address] [place] [id number]
--- NOTE | 2019-01-13 15:15 | MORECARE ---
CASE MANAGEMENT DISCHARGE SUMMARY PATIENT: MAYURI CHILD UNIT: [id number] ADM DATE: 01/08/19 AGE: 53 : 63 SEX: F ROOM/BED: D.6410 AUTHOR: MARY,DOC PHYSICIAN: REFERRING PHYSICIAN: ELLIS CAGLE MD DATE OF SERVICE: 01/13/19 Discharge Plan Patient Name: MAYURI CHILD Facility: [facility]:[place] : 1965 Planned Disposition: Residential Facility Anticipated Discharge Date: 01/16/19 Discharge Date: Expected LOS: 8 Initial Reviewer: [id number] Initial Review Date: 01/07/2019 Generated: 01/13/19 4:15 pm Comments DCP- Discharge Planning Updated by [id number]: Vane Bee on 01/13/19 10:[address] Patient Name: MAYURI CHILD Encounter No: [id number] : 1965 Primary Insurance: MEDICARE A & B Anticipated DC Date: 01-13-2019 Planned Disposition: Residential Facility External Planned Provider: [facility], MEDICARE REHAB BED DCP follow-up note: CM SPOKE TO LETHA TYLER OF [facility] WHO INFORMED CM THAT THEY WILL ACCEPT PT AT DISCHARGE, [facility] WILL PROVIDE TRILOGY FOR PT AT THE [facility]. SHE HAS NOTIFIED PT ALREADY. CM NOTIFIED DR CAGLE WHO ADVISED PT MAY BE READY FOR DISCHARGE 01-16-19. FOR DISHCHARGE, FAX DISCHARGE INFORMATION TO [facility], . NURSE REPORT TO BE CALLED TO [facility] AT [phone]. PT TO TRANSPORT VIA AMBULANCE. Vane Bee, CASE KALI DCP- Discharge Planning Updated by [email or web address]: Vane Bee on 01/13/19 7:[address] Patient Name: MAYURI CHILD Encounter No: [id number] : 1965 Primary Insurance: MEDICARE A & B Anticipated DC Date: 01-13-2019 Planned Disposition: Residential Facility External Planned Provider:[facility], MEDICARE REHAB BED DCP follow-up note: CM RECEIVED EVELIN EXEMPTION JENNA PASRR AND [facility]. CM [facility], . CM FAXED EVELIN APPROVAL TO LORNE AT [phone]. CM WAITING ADMISSION DETERMINATION AND TRILOGY ARRANGEMENT FROM [facility]. VANE BEE, CASE MANAGEMENT DCP- Discharge Planning Updated by [id number]: Vane Bee on 01/12/19 1:[address] Patient Name: MAYURI CHILD Encounter No: [id number] : 1965 Primary Insurance: MEDICARE A & B Anticipated DC Date: Planned Disposition: Residential Facility External Planned Provider: [facility], MEDICARE REHAB BED DCP follow-up note: CM COMPLETED EVELIN SCREENING WITH PT'S ASSISTANCE AND OBTAINED SIGNATURE FROM ROSY SNYDER. PT INFORMED CM THAT RAJI IS WORKING ON GETTING SHE AND HER SISTER INTO [facility] IN [place] TO BE CLOSER TO THEIR FAMILY. CM PROVIDED CHOICE LETTER FOR PT WHO SIGNED FOR [facility]. IMPORTANT MESSAGE FROM MEDICARE PROVIDED AND EXPLAINED. CM SPOKE TO LORNE OF [facility], , WHO HAS FORWARDED REFERRAL TO [facility] FROM [facility] AND HAS OBTAINED AGREEMENT FROM PT AND HER SISTER. CM FAXED UPDATE TO LORNE AT [phone]. CM FAXED EVELIN SCREENING TO [employer] [facility]. CM WAITING EVELIN SCREENING AND ADMISSION DETERMINATION FROM [facility]. VANE BEE CASE MANAGEMENT DCP- Discharge Planning Updated by [id number]: Rosa Amin on 01/10/19 2:[address] CM RECIEVED CALL FROM NANCY [facility] SHE STATED THAT THEY HAD DENIED BOTH HER AND HER SISTER KATHLEEN FOR PLACEMENT. CM SPOKE WITH PATIENT SHE STATED THAT THE [facility] WAS HER SECOND CHOICE. PATIENT ALSO STATED THAT SHE WAS WILLING TO GO ANYWHERE LOCALLY THAT WOULD ACCEPT THEM BOTH LONG IT WAS A NICE FACILITY. CM SENT RECORDS TO [facility] AND SPOKE WITH SHELLY NAQVI OF [facility]. CM WILL CONTINUE TO FOLLOW AND ASSIST WITH DISCHARGE PLANNING / NEEDS. DCP- Discharge Planning Updated by [id number]: Rosa Amin on 01/09/19 5:[address] Patient Name: MAYURI CHILD Admission Status: ER Accout number: [id number] Admission Date: 01-07-2019 : 1965 Admission Diagnosis: Attending: ELLIS CAGLE Current LOS: 2 Anticipated DC Date: Planned Disposition: Residential Facility Primary Insurance: MEDICARE A & B Discharge Planning Comments: CM met with patient at bedside. Patient states that she lives at home with her sister Kathleen Bajwa (whom is also in hospital) and her sister's acquaintance ( wouldn't give CM name.) Patient states this man is in hospital at [facility] with pneumonia that's why they came here. Patient wishes for both her sister and her to be admitted to SNF for rehab upon discharge. SHEN signed for #1 [facility], #2 [facility]. Patient states she only has a walker. She states she can't have home 02 because she has a gas stove. CM will send records to [facility] and patient will also need EVELIN prior to discharge. CM will continue to follow and assist as needed with discharge planning / needs. Field Artillery Fire Control Man: Rosa Amin DCPIA - Discharge Planning Initial Assessment Updated by [id number]: Rosa Amin on 01/09/19 6:16 pm * Is the patient Alert and Oriented? Yes * How many steps to enter\exit or inside your home? * PCP NO PCP * Pharmacy [facility] * Preadmission Environment Home with Family * ADLs Partial Dependent * Partial ADLs (Assistance needed) Ambulation * Equipment Walker * List name and contact numbers for known caregivers / representatives who currently or will assist patient after discharge: KATHLEEN BAJWA - SISTER- UNKNOWN * Verbal permission to speak to the caregivers and representatives has been obtained from the patient. Yes * Community resources currently utilized Home Health * Please name any agencies selected above. [facility] * Additional services required to return to the preadmission environment? No * Can the patient safely return to the preadmission environment? Yes * Has this patient been hospitalized within the prior 30 days at any hospital? Yes Coverage Notice Reviewer: [id number] Blanco Bee Notice Issued Date-Time: 01/12/2019 13:50 Notice Type: IM Discharge Notice Notice Delivered To: Patient Relationship to Patient: Process Development Chemist Name: Delivery Method: HAND - Hand Delivered Samantha Days: Prior Verbal Notification: Recipient Understood Notice: Yes Recipient Signature: Yes Med Rec Note Co-signed by Attending: Coverage Notice Comment: Reviewer: [id number] Bee Notice Issued Date-Time: 01/12/2019 13:50 Notice Type: Patient Choice Letter Notice Delivered To: Patient Relationship to Patient: Process Development Chemist Name: Delivery Method: HAND - Hand Delivered Samantha Days: Prior Verbal Notification: Recipient Understood Notice: Yes Recipient Signature: Yes Med Rec Note Co-signed by Attending: Coverage Notice Comment: [facility], NLR Last DP export: 01/13/19 10:14 a Patient Name: MAYURI CHILD Page 92795 at 1515 All edits/amendments must be made on the electronic document DICTATION DATE: 01/13/191514 CONFERENCE SERVICES DIRECTOR: DENISE 01/13/19 151 RPT#: [id number] DC DATE: STATUS: ADM IN [facility] [address] [place] [address] END OF REPORT
[2019-01-14 08:48] VITALS: BP 132/57
[2019-01-14 12:25] VITALS: BP 130/73
[2019-01-14 15:59] VITALS: BP 128/61
[2019-01-14 20:44] VITALS: BP 119/57
[2019-01-15 00:54] VITALS: BP 90/52
[2019-01-15 04:00] VITALS: BP 105/62
[2019-01-15 05:13] LABS: CALCIUM 8.6 mg/dL (8.5-10.1); CHLORIDE - SERUM 94 mmol/L (98-107); GLUCOSE 94 mg/dL (74-106); POTASSIUM - SERUM 4.2 mmol/L (3.5-5.1); SODIUM 138 mmol/L (136-145)
[2019-01-15 05:14] LABS: CALC OSMOLALITY 281 mosm/kg (275-300); CREATININE - SERUM 0.7 mg/dL (0.6-1.3); UREA NITROGEN 30 mg/dL (7-18); eGFR NON AFRICAN AMERICAN > 90 mL/min (90-120)
[2019-01-15 05:15] LABS: CARBON DIOXIDE 42.4 mmol/L (21.0-32.0)
[2019-01-15 07:58] VITALS: BP 121/56
[2019-01-15 11:22] VITALS: BP 109/81
[2019-01-15 16:10] VITALS: BP 109/61
[2019-01-15 20:00] VITALS: BP 107/51
[2019-01-16] VITALS: BP 117/53
[2019-01-16 04:00] VITALS: BP 133/64
[2019-01-16 08:16] VITALS: BP 119/63
--- NOTE | 2019-01-16 11:32 | MORECARE ---
CASE MANAGEMENT DISCHARGE SUMMARY PATIENT: MAYURI CHILD UNIT: [id number] ADM DATE: 01/08/19 AGE: 53 : 63 SEX: F ROOM/BED: D.3929 AUTHOR: MARY,DOC PHYSICIAN: REFERRING PHYSICIAN: ELLIS CAGLE MD DATE OF SERVICE: 01/16/19 Discharge Plan Patient Name: MAYURI CHILD Facility: [facility]:[place] : 1965 Planned Disposition: Intermediate Facility Anticipated Discharge Date: 01/16/19 Discharge Date: Expected LOS: 8 Initial Reviewer: [id number] Initial Review Date: 01/07/2019 Generated: 01/16/19 12:32 pm Comments DCP- Discharge Planning Updated by [id number]: Vane Bee on 01/16/19 10:[address] Patient Name: MAYURI CHILD Encounter No: [id number] : 1965 Primary Insurance: MEDICARE A & B Anticipated DC Date: 01-13-2019 Planned Disposition: Intermediate Facility External Planned Provider: [facility], MEDICARE REHAB BED DCP follow-up note: CM SPOKE TO LETHA TYLER [facility] WHO INFORMED CM THAT THEY WILL ACCEPT PT AT DISCHARGE, [facility] WILL PROVIDE TRILOGY FOR PT AT THE [facility]AY. SHE HAS NOTIFIED PT ALREADY. CM NOTIFIED DR CAGLE WHO ADVISED PT MAY BE READY FOR DISCHARGE 01-16-19. FOR DISHCHARGE, FAX DISCHARGE INFORMATION TO [facility], . NURSE REPORT TO BE CALLED TO [facility] AT [phone]. PT TO TRANSPORT VIA AMBULANCE. Vane Bee, CASE MANAGEMENT Appended by Vane Bee on 01/16/2019 11:32 CDT: CM SPOKE TO LORNE [facility], THEY NEED TRILOGY SETTINGS TO ORDER THE TRILOGY, THE BIPAP SETTINGS WILL NOT DO. CM PAGED DR. RICE AND DID NOT RECEIVE CALL BACK. CM NOTIFIED BRANT MCBRIDE. TRILOGY SETTINGS NEEDED TO ORDER TRILOGY AT [facility]F-WAY. FOR DISHCHARGE, FAX DISCHARGE INFORMATION TO [facility], . NURSE REPORT TO BE CALLED TO [facility] AT [phone]. PT TO TRANSPORT VIA AMBULANCE. Vane Bee CASE MANAGEMENT DCP- Discharge Planning Updated by [id number]: Vane Bee on 01/13/19 7:[address] Patient Name: MAYURI CHILD Encounter No: [id number] : 1965 Primary Insurance: MEDICARE A & B Anticipated DC Date: 01-13-2019 Planned Disposition: Intermediate Facility External Planned Provider:[facility], MEDICARE REHAB BED DCP follow-up note: CM RECEIVED EVELIN EXEMPTION JENNA PASRR AND [facility]TER [facility]. CM NOTIFIED LORNE [facility], . CM FAXED EVELIN APPROVAL TO LORNE AT [phone]. CM WAITING ADMISSION DETERMINATION AND TRILOGY ARRANGEMENT FROM [facility]. VANE BEE CASE KALI DCP- Discharge Planning Updated by [id number]: Vane Bee on 01/12/19 1:[address] Patient Name: MAYURI CHILD Encounter No: [id number] : 1965 Primary Insurance: MEDICARE A & B Anticipated DC Date: Planned Disposition: Intermediate Facility External Planned Provider: [facility], MEDICARE REHAB BED DCP follow-up note: CM COMPLETED EVELIN SCREENING WITH PT'S ASSISTANCE AND OBTAINED SIGNATURE FROM ROSY SNYDER. PT INFORMED CM THAT LORNE [facility] [employer] [facility] IS WORKING ON GETTING SHE AND HER SISTER INTO [facility] IN [place] TO BE CLOSER TO THEIR FAMILY. CM PROVIDED CHOICE LETTER FOR PT WHO SIGNED FOR [facility]. IMPORTANT MESSAGE FROM MEDICARE PROVIDED AND EXPLAINED. CM SPOKE TO LORNE [facility], , WHO HAS FORWARDED REFERRAL TO [facility] FROM [facility] AND HAS OBTAINED AGREEMENT FROM PT AND HER SISTER. CM FAXED UPDATE TO LORNE AT [phone]. CM FAXED EVELIN SCREENING TO [facility]. CM WAITING EVELIN SCREENING AND ADMISSION DETERMINATION FROM [facility]. VANE BEE CASE MANAGEMENT DCP- Discharge Planning Updated by [id number]: Rosa Amin on 01/10/19 2:[address] CM REC[facility]EVED [facility] SHE STATED THAT THEY HAD DENIED BOTH HER AND HER SISTER KATHLEEN FOR PLACEMENT. CM SPOKE WITH PATIENT SHE STATED THAT THE [facility] WAS HER SECOND CHOICE. PATIENT ALSO STATED THAT SHE WAS WILLING TO GO ANYWHERE LOCALLY THAT WOULD ACCEPT THEM BOTH LONG IT WAS A NICE FACILITY. CM SENT RECORDS TO [facility] AND SPOKE WITH SHELLY NAQVI OF [facility]. CM WILL CONTINUE TO FOLLOW AND ASSIST WITH DISCHARGE PLANNING / NEEDS. DCP- Discharge Planning Updated by [id number]: Rosa Amin on 01/09/19 5:[address] Patient Name: MAYURI CHILD Admission Status: ER Accout number: [id number] Admission Date: 01-07-2019 : 1965 Admission Diagnosis: Attending: ELLIS CAGLE Current LOS: 2 Anticipated DC Date: Planned Disposition: Intermediate Facility Primary Insurance: MEDICARE A & B Discharge Planning Comments: CM met with patient at bedside. Patient states that she lives at home with her sister Kathleen Bajwa (whom is also in hospital) and her sister's acquaintance ( wouldn't give CM name.) Patient states this man is in hospital at [facility] with pneumonia that's why they came here. Patient wishes for both her sister and her to be admitted to SNF for rehab upon discharge. SHEN signed for #[facility], #2 [facility]. Patient states she only has a walker. She states she can't have home 02 because she has a gas stove. CM will send records to [facility] and patient will also need EVELIN prior to discharge. CM will continue to follow and assist as needed with discharge planning / needs. Supervisor Of Communications: Roas Amin DCPIA - Discharge Planning Initial Assessment Updated by [id number]: Rosa Amin on 01/09/19 6:16 pm * Is the patient Alert and Oriented? Yes * How many steps to enter\exit or inside your home? * PCP NO PCP * Pharmacy [facility] * Preadmission Environment Home with Family * ADLs Partial Dependent * Partial ADLs (Assistance needed) Ambulation * Equipment Walker * List name and contact numbers for known caregivers / representatives who currently or will assist patient after discharge: KATHLEEN BAJWA - SISTER- UNKNOWN * Verbal permission to speak to the caregivers and representatives has been obtained from the patient. Yes * Community resources currently utilized Home Health * Please name any agencies selected above. [facility] * Additional services required to return to the preadmission environment? No * Can the patient safely return to the preadmission environment? Yes * Has this patient been hospitalized within the prior 30 days at any hospital? Yes Coverage Notice Reviewer: PRIYANK Bee Notice Issued Date-Time: 01/12/2019 13:50 Notice Type: IM Discharge Notice Notice Delivered To: Patient Relationship to Patient: Vice President Safety Name: Delivery Method: HAND - Hand Delivered Samantha Days: Prior Verbal Notification: Recipient Understood Notice: Yes Recipient Signature: Yes Med Rec Note Co-signed by Attending: Coverage Notice Comment: Reviewer: PRIYANK Bee Notice Issued Date-Time: 01/12/2019 13:50 Notice Type: Patient Choice Letter Notice Delivered To: Patient Relationship to Patient: Vice President Safety Name: Delivery Method: HAND - Hand Delivered Samantha Days: Prior Verbal Notification: Recipient Understood Notice: Yes Recipient Signature: Yes Med Rec Note Co-signed by Attending: Coverage Notice Comment: [facility], NLR Last DP export: 01/13/19 2:15 p Patient Name: MAYURI CHILD Page 26482 at 1132 All edits/amendments must be made on the electronic document DICTATION DATE: 01/16/19 1132 ADVISORY INTERN: DENISE 01/16/19 1132 RPT#: [id number] DC DATE: STATUS: ADM IN [facility] [address] [place] [address] END OF REPORT
[2019-01-16 11:58] VITALS: BP 129/99
--- NOTE | 2019-01-16 12:37 | MORECARE ---
CASE MANAGEMENT DISCHARGE SUMMARY PATIENT: MAYURI CHILD UNIT: [id number] ADM DATE: 01/08/19 AGE: 53 : 63 SEX: F ROOM/BED: D.8750 AUTHOR: MARY,DOC PHYSICIAN: REFERRING PHYSICIAN: ELLIS CAGLE MD DATE OF SERVICE: 01/16/19 Discharge Plan Patient Name: MAYURI CHILD Facility: [facility]:[place] : 1965 Planned Disposition: Senior Living Facility Anticipated Discharge Date: 01/16/19 Discharge Date: Expected LOS: 8 Initial Reviewer: [id number] Initial Review Date: 01/07/2019 Generated: 01/16/19 1:36 pm Comments DCP- Discharge Planning Updated by [id number]: Robina Mcbride on 01/16/19 11:[address] @[address] RICE ABOUT TRILOGY SETTINGS. HE REQUESTED THAT THE DME SEND HIM THE SUGGESTIONS AND HE WOULD REVIEW AND SIGN. @1204 SENT MESSAGE TO THE CLINICAL LIASON, LORNE, ANIYAHN WILL WAIT FOR RESPONSE. @ 1223 RECEIVED A CALL FROM LORNE, SHE STATED THAT THE [facility] DOES NOT WANT TO DO THE TRILOGY, JUST A BIPAP AND LET THEIR DOCTOR DECIDE IF THE PATIENT NEEDS A BIPAP FROM THERE. LONG CONVERSATON SHORT, I EXPLAINED I WOULD EXPLAIN THE CONVERSATION TO DR RICE AND SHE WAS GOING TO LET SONIA, AT THE [facility], KNOW ABOUT THE CONVERSATION. SHE STATED THAT THE PATIENT IS GOOD TO DISCHARGE VIA AMBULANCE. @1228, I SPOKE WITH DR RICE AND HE STATED, "THAT'S FINE". @1230 I PLACED A CALL TO DR CAGLE FOR DISCHARGE ORDERS TO THE [facility]. DCP- Discharge Planning Updated by [email or web address]: Vane Bee on 01/16/19 10:[address] Patient Name: MAYURI CHILD Encounter No: [id number] : 1965 Primary Insurance: MEDICARE A & B Anticipated DC Date: 01-13-2019 Planned Disposition: Senior Living Facility External Planned Provider: [facility], MEDICARE REHAB BED DCP follow-up note: CM SPOKE TO LETHA TYLER OF [facility] WHO INFORMED CM THAT THEY WILL ACCEPT PT AT DISCHARGE, [facility] WILL PROVIDE TRILOGY FOR PT AT THE GROUP HOME. SHE HAS NOTIFIED PT ALREADY. CM NOTIFIED DR CAGLE WHO ADVISED PT MAY BE READY FOR DISCHARGE 01-16-19. FOR DISHCHARGE, FAX DISCHARGE INFORMATION TO [facility], . NURSE REPORT TO BE CALLED TO [facility] AT [phone]. PT TO TRANSPORT VIA AMBULANCE. Vane Bee, CASE MANAGEMENT Appended by Vane Bee on 01/16/2019 11:32 CDT: CM SPOKE TO LORNE OF [facility], THEY NEED TRILOGY SETTINGS TO ORDER THE TRILOGY, THE BIPAP SETTINGS WILL NOT DO. CM PAGED DR. RICE AND DID NOT RECEIVE CALL BACK. CM NOTIFIED RN DRISS MCBRIDE. TRILOGY SETTINGS NEEDED TO ORDER TRILOGY AT [facility]. FOR DISHCHARMONISHA, FAX DISCHARGE INFORMATION TO [facility], . NURSE REPORT TO BE CALLED TO [facility] AT [phone]. PT TO TRANSPORT VIA AMBULANCE. DEBBIE Osullivan DCP- Discharge Planning Updated by [id number]: Vane Bee on 01/13/19 7:[address] Patient Name: MAYURI CHILD Encounter No: [id number] : 1965 Primary Insurance: MEDICARE A & B Anticipated DC Date: 01-13-2019 Planned Disposition: Senior Living Facility External Planned Provider:[facility], MEDICARE REHAB BED DCP follow-up note: CM RECEIVED EVELIN EXEMPTION JENNA PASRR AND [facility]. CM NOTIFIED LORNE OF [facility], . CM FAXED EVELIN APPROVAL TO LORNE AT [phone]. CM WAITING ADMISSION DETERMINATION AND TRILOGY ARRANGEMENT FROM [facility]. VANE BEE CASE KALI DCP- Discharge Planning Updated by [id number]: Vane Bee on 01/12/19 1:[address] Patient Name: MAYURI CHILD Encounter No: [id number] : 1965 Primary Insurance: MEDICARE A & B Anticipated DC Date: Planned Disposition: Senior Living Facility External Planned Provider: [facility], MEDICARE REHAB BED DCP follow-up note: CM COMPLETED EVELIN SCREENING WITH PT'S ASSISTANCE AND OBTAINED SIGNATURE FROM ROSY SNYDER. PT INFORMED CM THAT RAJI IS WORKING ON GETTING SHE AND HER SISTER INTO [facility] IN [place] TO BE CLOSER TO THEIR FAMILY. CM PROVIDED CHOICE LETTER FOR PT WHO [facility]. IMPORTANT MESSAGE FROM MEDICARE PROVIDED AND EXPLAINED. CM SPOKE TO LORNE OF [facility], , WHO HAS FORWARDED REFERRAL TO [facility] FROM [facility] AND HAS OBTAINED AGREEMENT FROM PT AND HER SISTER. CM FAXED UPDATE TO LORNE AT [phone]. CM FAXED EVELIN SCREENING TO [employer] [facility] [facility]. CM WAITING EVELIN SCREENING AND ADMISSION DETERMINATION FROM [facility]. VANE BEE, CASE MANAGEMENT DCP- Discharge Planning Updated by [email or web address]: Rosa Amin on 01/10/19 2:[address] CM RECIEVED CALL FROM NANCY @ [facility] SHE STATED THAT THEY HAD DENIED BOTH HER AND HER SISTER KATHLEEN FOR PLACEMENT. CM SPOKE WITH PATIENT SHE STATED THAT THE [facility] WAS HER SECOND CHOICE. PATIENT ALSO STATED THAT SHE WAS WILLING TO GO ANYWHERE LOCALLY THAT WOULD ACCEPT THEM BOTH LONG IT WAS A NICE FACILITY. CM SENT RECORDS TO THE [facility] AND SPOKE WITH SHELLY LAMAR [facility]. CM WILL CONTINUE TO FOLLOW AND ASSIST WITH DISCHARGE PLANNING / NEEDS. DCP- Discharge Planning Updated by [id number]: Rosa Amin on 01/09/19 5:[address] Patient Name: MAYURI CHILD Admission Status: ER Accout number: [id number] Admission Date: 01-07-2019 : 1965 Admission Diagnosis: Attending: ELLIS CAGLE Current LOS: 2 Anticipated DC Date: Planned Disposition: Senior Living Facility Primary Insurance: MEDICARE A & B Discharge Planning Comments: CM met with patient at bedside. Patient states that she lives at home with her sister Kathleen Bajwa (whom is also in hospital) and her sister's acquaintance ( wouldn't give CM name.) Patient states this man is in hospital at [facility] with pneumonia that's why they came here. Patient wishes for both her sister and her to be admitted to SNF for rehab upon discharge. SHEN signed for #1 [facility], #2 [facility]. Patient states she only has a walker. She states she can't have home 02 because she has a gas stove. CM will send records to [facility] and patient will also need EVELIN prior to discharge. CM will continue to follow and assist as needed with discharge planning / needs. Information Consultant: Rosa Brennanjose OTTO - Discharge Planning Initial Assessment Updated by [id number]: Rosa Amin on 01/09/19 6:16 pm * Is the patient Alert and Oriented? Yes * How many steps to enter\\exit or inside your home? * PCP NO PCP * Pharmacy [facility] * Preadmission Environment Home with Family * ADLs Partial Dependent * Partial ADLs (Assistance needed) Ambulation * Equipment Walker * List name and contact numbers for known caregivers / representatives who currently or will assist patient after discharge: KATHLEEN BAJWA - SISTER- UNKNOWN * Verbal permission to speak to the caregivers and representatives has been obtained from the patient. Yes * Community resources currently utilized Home Health * Please name any agencies selected above. [facility] * Additional services required to return to the preadmission environment? No * Can the patient safely return to the preadmission environment? Yes * Has this patient been hospitalized within the prior 30 days at any hospital? Yes Coverage Notice Reviewer: [id number] Bee Notice Issued Date-Time: 01/12/2019 13:50 Notice Type: IM Discharge Notice Notice Delivered To: Patient Relationship to Patient: Marketing Sales Representative Name: Delivery Method: HAND - Hand Delivered Samantha Days: Prior Verbal Notification: Recipient Understood Notice: Yes Recipient Signature: Yes Med Rec Note Co-signed by Attending: Coverage Notice Comment: Reviewer: [id number] Bee Notice Issued Date-Time: 01/12/2019 13:50 Notice Type: Patient Choice Letter Notice Delivered To: Patient Relationship to Patient: Marketing Sales Representative Name: Delivery Method: HAND - Hand Delivered Samantha Days: Prior Verbal Notification: Recipient Understood Notice: Yes Recipient Signature: Yes Med Rec Note Co-signed by Attending: Coverage Notice Comment: [facility], NLR Last DP export: 01/16/19 10:32 a Patient Name: MAYURI CHILD Page 20338 at 1237 All edits/amendments must be made on the electronic document DICTATION DATE: 01/16/19 1236 MANUFACTURING DEVELOPMENT ENGINEER: DENISE 01/16/19 1236 RPT#: [id number] DC DATE: STATUS: ADM IN [facility] [address] [place] [address] END OF REPORT
[2019-01-16] MEDS ORDERED: BROVANA15 MCG/2 M INH (14:05)
[2019-01-16] MEDS ORDERED: XOPENEX 0.0.63 MG/3 UPD (14:05)
[2019-01-16] MEDS ORDERED: METOLAZONE2.5 MG PO (14:07)
[2019-01-16] MEDS ORDERED: PULMICORT0.5 MG/21 UPD (14:08)
[2019-01-16] MEDS ORDERED: FLORAJEN3 CAPS460 MG PO (14:09)
[2019-01-16 15:06] VITALS: BP 118/70
--- NOTE | 2019-01-17 10:57 | MORECARE ---
CASE MANAGEMENT DISCHARGE SUMMARY PATIENT: MAYURI CHILD UNIT: [id number] ADM DATE: 01/08/19 AGE: 53 : 63 SEX: F ROOM/BED: D.3530 AUTHOR: MARY,DOC PHYSICIAN: REFERRING PHYSICIAN: ELLIS CAGLE MD DATE OF SERVICE: 01/17/19 Discharge Plan Patient Name: MAYURI CHILD Facility: [facility]:[place] : 1965 Planned Disposition: Shelter Facility Anticipated Discharge Date: 01/16/19 Discharge Date: 01/16/2019 Expected LOS: 8 Initial Reviewer: [id number] Initial Review Date: 01/07/2019 Generated: 01/17/19 9:02 am Comments DCP- Discharge Planning Updated by [id number]: Robina Mcbride on 01/16/19 11:[address] @[address] RICE ABOUT TRILOGY SETTINGS. HE REQUESTED THAT THE DME SEND HIM THE SUGGESTIONS AND HE WOULD REVIEW AND SIGN. @1204 SENT MESSAGE TO THE CLINICAL LIASON, LORNE, ADN WILL WAIT FOR RESPONSE. @ 1223 RECEIVED A CALL FROM LORNE, SHE STATED THAT THE [facility]TERM DOES NOT WANT TO DO THE TRILOGY, JUST A BIPAP AND LET THEIR DOCTOR DECIDE IF THE PATIENT NEEDS A BIPAP FROM THERE. LONG CONVERSATON SHORT, I EXPLAINED I WOULD EXPLAIN THE CONVERSATION TO DR RICE AND SHE WAS GOING TO LET SONIA, AT THE LONGTERM, KNOW ABOUT THE CONVERSATION. SHE STATED THAT THE PATIENT IS GOOD TO DISCHARGE VIA AMBULANCE. @1228, I SPOKE WITH DR RICE AND HE STATED, "THAT'S FINE". @1230 I PLACED A CALL TO DR CAGLE FOR DISCHARGE ORDERS TO THE [facility]. DCP- Discharge Planning Updated by [email or web address]: Vane Bee on 01/16/19 10:[address] Patient Name: MAYURI CHILD Encounter No: [id number] : 1965 Primary Insurance: MEDICARE A & B Anticipated DC Date: 01-13-2019 Planned Disposition: Shelter Facility External Planned Provider: [facility], MEDICARE REHAB BED DCP follow-up note: CM SPOKE TO LETHA TYLER OF [facility] WHO INFORMED CM THAT THEY WILL ACCEPT PT AT DISCHARGE, [facility] WILL PROVIDE TRILOGY FOR PT AT THE LONGTERM. SHE HAS NOTIFIED PT ALREADY. CM NOTIFIED DR CAGLE WHO ADVISED PT MAY BE READY FOR DISCHARGE 01-16-19. FOR EDGARRMONISHA, FAX DISCHARGE INFORMATION TO [facility], . NURSE REPORT TO BE CALLED TO [facility] AT [phone]. PT TO TRANSPORT VIA AMBULANCE. Vane Bee, CASE MANAGEMENT Appended by Vane Bee on 01/16/2019 11:32 CDT: CM SPOKE TO LORNE OF [facility], THEY NEED TRILOGY SETTINGS TO ORDER THE TRILOGY, THE BIPAP SETTINGS WILL NOT DO. CM PAGED DR. RICE AND DID NOT RECEIVE CALL BACK. CM NOTIFIED BRANT MCBRIDE. TRILOGY SETTINGS NEEDED TO ORDER TRILOGY AT LONGTER[facility]. FOR DISHCHARMONISHA, FAX DISCHARGE INFORMATION TO [facility], . NURSE REPORT TO BE CALLED TO [facility] AT [phone]. PT TO TRANSPORT VIA AMBULANCE. Vane Bee CASE MANAGEMENT DCP- Discharge Planning Updated by [id number]: Vane Bee on 01/13/19 7:[address] Patient Name: MAYURI CHILD Encounter No: [id number] : 1965 Primary Insurance: MEDICARE A & B Anticipated DC Date: 01-13-2019 Planned Disposition: Shelter Facility External Planned Provider:[facility], MEDICARE REHAB BED DCP follow-up note: CM RECEIVED EVELIN EXEMPTION [facility] AND [facility]. CM NOTIFIED LORNE OF [facility], . CM FAXED EVELIN APPROVAL TO LORNE AT [phone]. CM WAITING ADMISSION DETERMINATION AND TRILOGY ARRANGEMENT FROM [facility]. DEBBIE KEE DCP- Discharge Planning Updated by [id number]: Vane Bee on 01/12/19 1:[address] Patient Name: MAYURI CHILD Encounter No: [id number] : 1965 Primary Insurance: MEDICARE A & B Anticipated DC Date: Planned Disposition: Shelter Facility External Planned Provider: [facility], MEDICARE REHAB BED DCP follow-up note: CM COMPLETED EVELIN SCREENING WITH PT'S ASSISTANCE AND OBTAINED SIGNATURE FROM ROSY SNYDER. PT INFORMED CM THAT RAJI IS WORKING ON GETTING SHE AND HER SISTER INTO [facility] IN [place] TO BE CLOSER TO THEIR FAMILY. CM PROVIDED CHOICE LETTER FOR PT WHO S[facility]. IMPORTANT MESSAGE FROM MEDICARE PROVIDED AND EXPLAINED. CM SPOKE TO LORNE OF [facility], , WHO HAS FORWARDED REFERRAL TO [facility] FROM [facility] AND HAS OBTAINED AGREEMENT FROM PT AND HER SISTER. CM FAXED UPDATE TO LORNE AT [phone]. CM FAXED EVELIN SCREENING TO [facility]. CM WAITING EVELIN SCREENING AND ADMISSION DETERMINATION FROM [facility]. VANE BEE, CASE MANAGEMENT DCP- Discharge Planning Updated by [id number]: Rosa Amin on 01/10/19 2:[address] CM RECIEVED [facility] SHE STATED THAT THEY HAD DENIED BOTH HER AND HER SISTER KATHLEEN FOR PLACEMENT. CM SPOKE WITH PATIENT SHE STATED THAT [facility] WAS HER SECOND CHOICE. PATIENT ALSO STATED THAT SHE WAS WILLING TO GO ANYWHERE LOCALLY THAT WOULD ACCEPT THEM BOTH LONG IT WAS A NICE FACILITY. CM SENT RECORDS TO [facility] AND SPOKE WITH SHELLY LAMAR KATHLEEN. CM WILL CONTINUE TO FOLLOW AND ASSIST WITH DISCHARGE PLANNING / NEEDS. DCP- Discharge Planning Updated by [id number]: Rosa Amin on 01/09/19 5:[address] Patient Name: MAYURI CHILD Admission Status: ER Accout number: [id number] Admission Date: 01-07-2019 : 1965 Admission Diagnosis: Attending: ELLIS CAGLE Current LOS: 2 Anticipated DC Date: Planned Disposition: Shelter Facility Primary Insurance: MEDICARE A & B Discharge Planning Comments: CM met with patient at bedside. Patient states that she lives at home with her sister Kathleen Bajwa (whom is also in hospital) and her sister's acquaintance ( wouldn't give CM name.) Patient states this man is in hospital at [facility] with pneumonia that's why they came here. Patient wishes for both her sister and her to be admitted to SNF for rehab upon discharge. SHEN signed for [facility], [facility]. Patient states she only has a walker. She states she can't have home 02 because she has a gas stove. CM will send records to [facility] and patient will also need EVELIN prior to discharge. CM will continue to follow and assist as needed with discharge planning / needs. [employer] Boat: Rosa Montanezjose OTTO - Discharge Planning Initial Assessment Updated by [id number]: Rosa Amin on 01/09/19 6:16 pm * Is the patient Alert and Oriented? Yes * How many steps to enter\\exit or inside your home? * PCP NO PCP * Pharmacy [facility] * Preadmission Environment Home with Family * ADLs Partial Dependent * Partial ADLs (Assistance needed) Ambulation * Equipment Walker * List name and contact numbers for known caregivers / representatives who currently or will assist patient after discharge: KATHLEEN BAJWA - SISTER- UNKNOWN * Verbal permission to speak to the caregivers and representatives has been obtained from the patient. Yes * Community resources currently utilized Home Health * Please name any agencies selected above. [facility] * Additional services required to return to the preadmission environment? No * Can the patient safely return to the preadmission environment? Yes * Has this patient been hospitalized within the prior 30 days at any hospital? Yes Coverage Notice Reviewer: [id number] Blanco Bee Notice Issued Date-Time: 01/12/2019 13:50 Notice Type: IM Discharge Notice Notice Delivered To: Patient Relationship to Patient: Strategy Director Name: Delivery Method: HAND - Hand Delivered Samantha Days: Prior Verbal Notification: Recipient Understood Notice: Yes Recipient Signature: Yes Med Rec Note Co-signed by Attending: Coverage Notice Comment: Reviewer: [id number] Blanco Bee Notice Issued Date-Time: 01/12/2019 13:50 Notice Type: Patient Choice Letter Notice Delivered To: Patient Relationship to Patient: Strategy Director Name: Delivery Method: HAND - Hand Delivered Samantha Days: Prior Verbal Notification: Recipient Understood Notice: Yes Recipient Signature: Yes Med Rec Note Co-signed by Attending: Coverage Notice Comment: [facility], [facility] Last DP export: 01/16/19 11:37 a Patient Name: MAYURI CHILD Page 51439 at 1057 All edits/amendments must be made on the electronic document DICTATION DATE: 01/17/19801 CHIEF CONTROLLER: DENISE 01/17/19 0802 RPT#: [id number] DC DATE:01/16/19 STATUS: DIS IN [facility] [address] [place] [id number] END OF REPORT
== END 2019-01-16 21:14 | DRG 286 ==
LOC: D.ER 12:40 → OBSVTIME 15:10 → D.EDHOLD 15:10 → D.M2 15:10 → D.CVICU 01-08 11:27 → EDBD 01-08 11:31 → D.M2 01-08 11:31 → D.CVICU 01-08 11:31 → D.M2 01-10 17:01 → D.SDCHOLD 01-11 15:02 → D.M2 01-11 15:03
PROVIDERS: Family Medicine; Internal Medicine Interventional Cardiology; Internal Medicine Pulmonary Disease; ADMIT Family Medicine; ATTEND Family Medicine
PROC: 5A09557 Assistance with Respiratory Ventilation, Greater than 96 Consecutive Hours, Continuous Positive Airway Pressure (ICD-10-PCS; 2019-01-08)
PROC: B2151ZZ Fluoroscopy of Left Heart using Low Osmolar Contrast (ICD-10-PCS; 2019-01-09)
PROC: 4A023N7 Measurement of Cardiac Sampling and Pressure, Left Heart, Percutaneous Approach (ICD-10-PCS; 2019-01-09)
PROC: 05HY33Z Insertion of Infusion Device into Upper Vein, Percutaneous Approach (ICD-10-PCS; 2019-01-09)
PROC: B2111ZZ Fluoroscopy of Multiple Coronary Arteries using Low Osmolar Contrast (ICD-10-PCS; principal; 2019-01-09 09:49)
DX: I11.0 Hypertensive heart disease with heart failure (principal); J96.21 Acute and chronic respiratory failure with hypoxia; J96.22 Acute and chronic respiratory failure with hypercapnia; E66.2 Morbid (severe) obesity with alveolar hypoventilation; J44.1 Chronic obstructive pulmonary disease with (acute) exacerbation; L03.115 Cellulitis of right lower limb; Z68.44 Body mass index [BMI] 60.0-69.9, adult; J98.11 Atelectasis; I50.33 Acute on chronic diastolic (congestive) heart failure; G40.909 Epilepsy, unspecified, not intractable, without status epilepticus; F41.8 Other specified anxiety disorders; E03.9 Hypothyroidism, unspecified; I48.91 Unspecified atrial fibrillation; F31.9 Bipolar disorder, unspecified; E78.5 Hyperlipidemia, unspecified

== ENCOUNTER → 2020-11-12 12:56 | Outpatient (CLI) | payer MEDICARE ==
[2019-01-09 09:13] VITALS: BMI 59.5
[~2020-11-12 12:56] MED LIST changes: +BROVANA15 MCG/2 M INH; +COREG 3.1253.125 MG PO; +COREG6.25 MG PO; +DEPAKOTE125 MG PO; +HYDROCODON-ACE1 EA10 PO; +KLOR-CON/EF 2525 MEQ PO; +LASIX40 MG; +LIPITOR80 MG PO; +LISINOPRIL5 MG PO; +METHOCARBAMOL500 MG PO; +METOLAZONE2.5 MG PO; +METOPROLOL TART25 MG PO; +MULTI-DAY VITAM1 TAB PO; +PULMICORT0.5 MG/21 UPD; +ROBAXIN500 MG PO; +RYTHMOL SR225 MG; +XOPENEX 0.0.63 MG/3 UPD; +ZYPREXA2.5 MG PO
[2020-11-12 13:11] LABS: BILIRUBIN NEGATIVE (NEGATIVE); KETONE NEGATIVE (NEGATIVE); NITRITE NEGATIVE (NEGATIVE); UROBILINOGEN NORMAL mg/dL (< 2)
[2020-11-12 15:59] LABS: BASOPHILS 0.2 % (0-2); EOSINOPHILS 1.9 % (0-7); HEMATOCRIT 38.4 % (36.0-48.0); HEMOGLOBIN 11.9 g/dL (12-16); IMMATURE GRANULOCYTES 0.2 % (0-5); LYMPHOCYTE ABS# 1.26 10x3/uL (1.18-3.74); LYMPHOCYTES 26.6 % (15-50); MCH 28.8 pg (26.0-34.0); MEAN PLATELET VOLUME 9.9 fL (7.4-10.4); MONOCYTES 12.5 % (2-11); NEUTROPHIL ABS# 2.77 10x3/uL (1.56-6.13); NEUTROPHILS 58.6 % (40-80); PLATELET COUNT 218 10x3/uL (130-400); RBC 4.13 10x6/uL (4.00-5.40); WBC 4.7 10x3/uL (4.8-10.8)
[2020-11-12 16:18] LABS: CALC OSMOLALITY 281 mosm/kg (275-300); CALCIUM 8.4 mg/dL (8.5-10.1); CARBON DIOXIDE 35.7 mmol/L (21.0-32.0); CHLORIDE - SERUM 104 mmol/L (98-107); CREATININE - SERUM 0.8 mg/dL (0.6-1.3); GLUCOSE 106 mg/dL (74-106); POTASSIUM - SERUM 4.2 mmol/L (3.5-5.1); SODIUM 142 mmol/L (136-145); UREA NITROGEN 9 mg/dL (7-18); eGFR NON AFRICAN AMERICAN 78 mL/min (90-120)
== END | disposition home or self-care (01) ==
LOC: D.LABREF 12:56
PROVIDERS: ATTEND Legal Medicine
DX: R33.8 Other retention of urine (principal)

== ENCOUNTER → 2020-11-30 13:21 | Outpatient (CLI) | payer MEDICARE ==
[2019-01-09 09:13] VITALS: BMI 59.5
== END | disposition home or self-care (01) ==
LOC: D.LABREF 13:21
PROVIDERS: ATTEND Legal Medicine
DX: R50.9 Fever, unspecified (principal)

== ENCOUNTER 2020-11-30 23:07 | Inpatient (IN) | payer MEDICARE ==
[~2020-11-30] VITALS: Ht 157.5 cm; Wt 135.6 kg
[~2020-11-30 23:07] MED LIST changes: -COREG 3.1253.125 MG PO; -HYDROCODON-ACE1 EA10 PO; -METHOCARBAMOL500 MG PO; -METOPROLOL TART25 MG PO; -MULTI-DAY VITAM1 TAB PO
[2020-11-30 23:26] VITALS: BP 153/62
[2020-11-30 23:57] LABS: BASOPHILS 0.3 % (0-2); EOSINOPHILS 1.6 % (0-7); HEMATOCRIT 36.9 % (36.0-48.0); HEMOGLOBIN 11.5 g/dL (12-16); IMMATURE GRANULOCYTES 0.8 % (0-5); LYMPHOCYTE ABS# 1.93 10x3/uL (1.18-3.74); MCH 28.8 pg (26.0-34.0); MCHC 31.2 g/dL (31.0-37.0); MCV 92.5 fL (80.0-100.0); MEAN PLATELET VOLUME 9.9 fL (7.4-10.4); MONOCYTES 7.5 % (2-11); NEUTROPHIL ABS# 5.02 10x3/uL (1.56-6.13); NEUTROPHILS 64.8 % (40-80); RBC 3.99 10x6/uL (4.00-5.40); RDW 14.2 % (11.5-14.5); WBC 7.7 10x3/uL (4.8-10.8)
[2020-11-30 23:58] LABS: PLATELET COUNT 154 10x3/uL (130-400)
[2020-12-01 00:11] LABS: CALC OSMOLALITY 274 mosm/kg (275-300); CALCIUM 8.3 mg/dL (8.5-10.1); CARBON DIOXIDE 36.8 mmol/L (21.0-32.0); CHLORIDE - SERUM 101 mmol/L (98-107); CREATININE - SERUM 0.9 mg/dL (0.6-1.3); GLUCOSE 94 mg/dL (74-106); POTASSIUM - SERUM 4.3 mmol/L (3.5-5.1); SODIUM 138 mmol/L (136-145); UREA NITROGEN 9 mg/dL (7-18); eGFR NON AFRICAN AMERICAN 69 mL/min (90-120)
[2020-12-01 00:26] LABS: ALBUMIN 3.2 g/dL (3.4-5.0); ALKALINE PHOSPHATASE 93 U/L (30-120); ALT (SGPT) 14 U/L (10-68); CKMB 0.9 U/L (0.0-3.6); CREATINE KINASE 68 UL (21-215); MAGNESIUM - SERUM 1.9 mg/dL (1.8-2.4); PROTEIN - SERUM 6.5 g/dL (6.4-8.2); TROPONIN-I < 0.017 ng/mL (0.000-0.060)
[2020-12-01 01:28] LABS: APTT 31.3 SECONDS (22.8-39.4); INR 1.02 (0.85-1.17); PROTIME 12.3 SECONDS (11.6-15.0)
[2020-12-01 01:31] LABS: D-DIMER-QUANTITATIVE 0.64 ug/mLFEU (0.20-0.54)
[2020-12-01 07:53] VITALS: BP 97/32
[2020-12-01 08:21] LABS: CKMB 0.9 U/L (0.0-3.6); CREATINE KINASE 60 UL (21-215); TROPONIN-I < 0.017 ng/mL (0.000-0.060)
[2020-12-01 08:53] VITALS: BP 94/48
--- NOTE | 2020-12-01 08:57 | NUR ---
ATTEMPTED REPORT. NURSE UNAVAILABLE.
--- NOTE | 2020-12-01 09:07 | NUR ---
RECEIVED REPORT FROM BRANT ROSADO IN ER.
--- NOTE | 2020-12-01 09:34 | NUR ---
PT TO ROOM, SITUATED COMFORTABLY IN BED. DRESSED IN GOWN. CHARGE NURSE IN ROOM, ASSESSMENT DONE. RESTING IN BED, DENIES ANY NEEDS AT THIS TIME. BED IN LOWEST POSITION, BED RAILS X2, CALL LIGHT WITHIN REACH. WILL CONTINUE POC.
[2020-12-01 09:50] VITALS: BP 107/51; BMI 54.8
--- NOTE | 2020-12-01 12:10 | NUR ---
RESTING IN BED, APPEARS COMFORTABLE. ADMINISTERED PRN MORPHINE FOR PAIN. TOLERATED WELL. DENIES ANY OTHER NEEDS AT THIS TIME. WILL CONTINUE POC.
[2020-12-01 14:59] LABS: CKMB 0.7 U/L (0.0-3.6); CREATINE KINASE 83 UL (21-215); TROPONIN-I < 0.017 ng/mL (0.000-0.060)
[2020-12-01 16:35] VITALS: BP 119/50
--- NOTE | 2020-12-01 19:00 | NUR ---
BEDSIDE REPORT RECEIVED AND CARE OF PT ASSUMED. PT LYING IN SUPINE POSITION WITH EYES CLOSED. O2 ON THE FLOOR...AT 4L. SPO2 IN THE 60'S...PT REFUSING O2 SAYING THAT IT'S POISEN. RT AND THIS NURSE CONVINCED PT THAT SHE HAD TO PUT ON O2. 95% AT THIS TIME ON 4L. IV TO LEFT FA AND LEFT THUMB SALINE LOCKED. WILL MONITOR FOR NEEDS.
[2020-12-01] MEDS ORDERED: LASIX40 MG PO (19:27)
[2020-12-01] MEDS ORDERED: LISINOPRIL5 MG PO (19:29)
--- NOTE | 2020-12-01 19:30 | NUR ---
MEDICATION RECONCILLIATION COMPLETE AND SPOKE TO POLYMERIZATION OVEN TENDER WHO IS WORKING ON ORDERING HOME MEDS FOR PT.
[2020-12-01] MEDS ORDERED: METHOCARBAMOL500 MG PO (19:33)
[2020-12-01] MEDS ORDERED: COREG 3.1253.125 MG PO (19:34)
[2020-12-01] MEDS ORDERED: HYDROCODON-ACE1 EA10 PO (19:42)
[2020-12-01] MEDS ORDERED: METOPROLOL TART25 MG PO (19:43)
[2020-12-01] MEDS ORDERED: MULTI-DAY VITAM1 TAB PO (19:43)
[2020-12-01] MEDS ORDERED: K-DUR20 MEQ PO (19:45)
[2020-12-01] MEDS ORDERED: PROPAFENONE HC225 MG PO (19:46)
[2020-12-01 20:00] VITALS: BP 181/49
[2020-12-01 20:20] LABS: CKMB 0.4 U/L (0.0-3.6); CREATINE KINASE 55 UL (21-215); TROPONIN-I < 0.017 ng/mL (0.000-0.060)
--- NOTE | 2020-12-01 22:17 | NUR ---
HS MEDICATIONS GIVEN. WILL CONTINUE TO MONITOR FOR NEEDS.
--- NOTE | 2020-12-01 23:56 | NUR ---
PT TAKING OFF OXYGEN AND YELLING AT THIS NURSE THAT ALL SHE NEEDS IS PAIN MEDICATION...HOLDING OFF ON GIVING PRN PAIN MED DUE TO O2 SATS BEING 82 AT THIS ASSESSMENT AND PT RECEIVED SEVERAL SEDATING MEDICATION AT BEDTIME. PT C/O NOSE AND THROAT BURNING, BUT STARTED YELLING AT ME WHEN I WAS GOING TO PLACE HUMIDIFICATION ON HER O2.
[2020-12-02] VITALS: BP 107/44
--- NOTE | 2020-12-02 00:37 | NUR ---
PT O2 SATS UP TO 94% AND SHE IS KEEPING OXYGEN ON. GAVE MORPHINE 4 MG IVP PER REQUEST FOR PAIN IN LEFT SHOULDER. WILL MONITOR FOR EFFECTIVENESS.
--- NOTE | 2020-12-02 00:56 | NUR ---
PT BATHED AND ALL LINENS AND GOWN CHANGED DUE TO INCONTINCE OF URINE. POSITIONED FOR COMFORT.
[2020-12-02 04:00] VITALS: BP 94/44
[2020-12-02 08:00] VITALS: BP 145/69
[2020-12-02 10:07] LABS: BASOPHILS 0.2 % (0-2); EOSINOPHILS 2.1 % (0-7); HEMATOCRIT 38.7 % (36.0-48.0); HEMOGLOBIN 11.6 g/dL (12-16); IMMATURE GRANULOCYTES 0.9 % (0-5); LYMPHOCYTE ABS# 0.84 10x3/uL (1.18-3.74); LYMPHOCYTES 15.7 % (15-50); MCH 28.4 pg (26.0-34.0); MEAN PLATELET VOLUME 9.6 fL (7.4-10.4); MONOCYTES 6.7 % (2-11); NEUTROPHIL ABS# 3.97 10x3/uL (1.56-6.13); NEUTROPHILS 74.4 % (40-80); RBC 4.08 10x6/uL (4.00-5.40)
[2020-12-02 10:24] LABS: MCV 94.9 fL (80.0-100.0); PLATELET COUNT 208 10x3/uL (130-400); WBC 5.3 10x3/uL (4.8-10.8)
[2020-12-02 10:31] LABS: ALBUMIN 3.2 g/dL (3.4-5.0); ALKALINE PHOSPHATASE 182 U/L (30-120); BILIRUBIN - TOTAL 0.56 mg/dL (0.2-1.3); CALCIUM 8.5 mg/dL (8.5-10.1); CARBON DIOXIDE 36.2 mmol/L (21.0-32.0); CHLORIDE - SERUM 103 mmol/L (98-107); CREATININE - SERUM 0.7 mg/dL (0.6-1.3); GLUCOSE 95 mg/dL (74-106); MAGNESIUM - SERUM 2.2 mg/dL (1.8-2.4); POTASSIUM - SERUM 4.5 mmol/L (3.5-5.1); PROTEIN - SERUM 7.1 g/dL (6.4-8.2); SODIUM 142 mmol/L (136-145); eGFR NON AFRICAN AMERICAN > 90 mL/min (90-120)
[2020-12-02 10:32] LABS: ALT (SGPT) 37 U/L (10-68); CALC OSMOLALITY 280 mosm/kg (275-300); UREA NITROGEN 6 mg/dL (7-18)
[2020-12-02 12:00] VITALS: BP 132/68
[2020-12-02 15:00] VITALS: BP 130/74
--- NOTE | 2020-12-02 18:00 | NUR ---
PATIENT SITTING UP IN BED EATING. IV INTACT. NO COMPLAINTS. EXPLAINED NEEDS A UA. VERBALIZED UNDERSTANDING. CALL LIGHT WITHIN REACH.
--- NOTE | 2020-12-02 18:45 | NUR ---
PATIENT IN BED WITH IV INTACT X 2. NO COMPLAINTS OR SIGNS OF DISTRESS. EYES CLOSED RESTING QUIETLY. CALL LIGHT WITHIN REACH.
[2020-12-02 20:00] VITALS: BP 121/59
[2020-12-03 04:00] VITALS: BP 109/64; BP 99/49
[2020-12-03 07:32] LABS: BASOPHILS 0.2 % (0-2); EOSINOPHILS 0.6 % (0-7); HEMATOCRIT 34.5 % (36.0-48.0); HEMOGLOBIN 10.4 g/dL (12-16); IMMATURE GRANULOCYTES 0.8 % (0-5); LYMPHOCYTE ABS# 1.23 10x3/uL (1.18-3.74); LYMPHOCYTES 25.7 % (15-50); MCH 28.4 pg (26.0-34.0); MCHC 30.1 g/dL (31.0-37.0); MCV 94.3 fL (80.0-100.0); MEAN PLATELET VOLUME 10.1 fL (7.4-10.4); MONOCYTES 9.6 % (2-11); NEUTROPHIL ABS# 3.02 10x3/uL (1.56-6.13); NEUTROPHILS 63.1 % (40-80); RBC 3.66 10x6/uL (4.00-5.40); RDW 13.7 % (11.5-14.5); WBC 4.8 10x3/uL (4.8-10.8)
[2020-12-03 07:33] LABS: PLATELET COUNT 161 10x3/uL (130-400)
[2020-12-03 07:44] LABS: ALBUMIN 2.7 g/dL (3.4-5.0); ALKALINE PHOSPHATASE 152 U/L (30-120); ALT (SGPT) 32 U/L (10-68); CALCIUM 7.9 mg/dL (8.5-10.1); CARBON DIOXIDE 35.3 mmol/L (21.0-32.0); CHLORIDE - SERUM 104 mmol/L (98-107); CREATININE - SERUM 0.7 mg/dL (0.6-1.3); GLUCOSE 88 mg/dL (74-106); POTASSIUM - SERUM 4.4 mmol/L (3.5-5.1); PROTEIN - SERUM 5.5 g/dL (6.4-8.2); SODIUM 143 mmol/L (136-145); eGFR NON AFRICAN AMERICAN > 90 mL/min (90-120)
[2020-12-03 07:45] LABS: CALC OSMOLALITY 283 mosm/kg (275-300); UREA NITROGEN 12 mg/dL (7-18)
--- NOTE | 2020-12-03 09:07 | NUR ---
ALERT AND ORIENTED. PATIENT CHANGED AND CLEANED. ADJUSTED IN BED. BIPAP REMOVED AND OXYGEN PLACED ON PATIENT AT 4L NC. SAT UP TO EAT. REQUESTED AND GIVEN DIET COKE. ASSESSMENT COMPLETE. DENIES FURTHER NEEDS. BED LOW. CALL JENNINGS AND PERSONAL ITEMS IN REACH. WILL CONTINUE TO MONITOR.
--- NOTE | 2020-12-03 09:15 | NUR ---
SPOKE WITH ANIYA AT [employer] TO GET MONITOR FOR PATIENT. STATES WILL CALL WHEN MONITOR IS READY.
[2020-12-03 10:27] VITALS: BP 107/60
--- NOTE | 2020-12-03 10:39 | NUR ---
URINE COLLECTED VIA IN AND OUT CATH AND TAKEN TO LAB.
--- NOTE | 2020-12-03 10:48 | NUR ---
PATIENT RUNNING NSR 91 ON GEOPHYSICAL E LOGGER.
[2020-12-03 13:58] VITALS: BP 103/58
[2020-12-03 14:39] LABS: BILIRUBIN NEGATIVE (NEGATIVE); KETONE NEGATIVE (NEGATIVE); NITRITE NEGATIVE (NEGATIVE)
--- NOTE | 2020-12-03 15:51 | NUR ---
TALKED TO MICHAEL, CASE MANAGEMENT, TO NOTIFY THAT PATIENT DOES NOT WANT TO GO BACK TO [facility] PER PATIENT REQUEST. PATIENT WANTS TO DC TO [facility]. CASE MANAGEMENT STATES WILL TALK WITH PATIENT.
[2020-12-03 18:31] VITALS: BP 126/56
[2020-12-03 20:00] VITALS: BP 121/55
--- NOTE | 2020-12-03 20:15 | NUR ---
REPORT RECEIVED, WILL CONT POC. PT A&O, UP IN BED. NO S/S OF DISTRESS OBSERVED. RR EVEN & UNLABORED ON 4L. L FA IV PATENT AND SL. BED LOCKED AND LOWERED, CL IN REACH. ASSESSMENT COMPLETED AT THIS TIME WILL CONT TO MONITOR.
[2020-12-04] VITALS: BP 112/42
[2020-12-04 04:00] VITALS: BP 123/54
[2020-12-04 06:25] LABS: BASOPHILS 0.2 % (0-2); EOSINOPHILS 0.2 % (0-7); HEMATOCRIT 35.3 % (36.0-48.0); HEMOGLOBIN 10.6 g/dL (12-16); IMMATURE GRANULOCYTES 0.3 % (0-5); LYMPHOCYTE ABS# 0.89 10x3/uL (1.18-3.74); LYMPHOCYTES 15.5 % (15-50); MCH 28.4 pg (26.0-34.0); MCV 94.6 fL (80.0-100.0); MEAN PLATELET VOLUME 9.5 fL (7.4-10.4); MONOCYTES 5.6 % (2-11); NEUTROPHILS 78.2 % (40-80); PLATELET COUNT 190 10x3/uL (130-400); RBC 3.73 10x6/uL (4.00-5.40); RDW 13.7 % (11.5-14.5); WBC 5.8 10x3/uL (4.8-10.8)
[2020-12-04 06:31] LABS: ALKALINE PHOSPHATASE 224 U/L (30-120); BILIRUBIN - TOTAL 0.51 mg/dL (0.2-1.3); CALC OSMOLALITY 278 mosm/kg (275-300); CALCIUM 8.2 mg/dL (8.5-10.1); CARBON DIOXIDE 39.6 mmol/L (21.0-32.0); CHLORIDE - SERUM 102 mmol/L (98-107); CREATININE - SERUM 0.7 mg/dL (0.6-1.3); GLUCOSE 112 mg/dL (74-106); POTASSIUM - SERUM 4.2 mmol/L (3.5-5.1); PROTEIN - SERUM 6.5 g/dL (6.4-8.2); SODIUM 140 mmol/L (136-145); UREA NITROGEN 9 mg/dL (7-18); eGFR NON AFRICAN AMERICAN > 90 mL/min (90-120)
[2020-12-04 06:36] LABS: ALT (SGPT) 57 U/L (10-68)
--- NOTE | 2020-12-04 07:15 | NUR ---
RECEIVE BEDSIDE SHIFT REPORT. RESTING IN BED. LETHARGIC. AROUSES TO LOUD VOICE. HOLDING PAIN MEDICATIONS. CALL LIGHT IN REACH. NO S/S OF DISTRESS PRESENT AT THIS TIME. WILL CONTINUE POC AND SAFETY PRECAUTIONS.
[2020-12-04 08:39] VITALS: BP 100/41
[2020-12-04 12:08] VITALS: BP 114/52
[2020-12-04 14:24] VITALS: Ht 157.5 cm; Wt 135.6 kg
--- NOTE | 2020-12-04 16:24 | NUR ---
OT NOTE: ATTEMPTED THERAPY 3XS THROUGHOUT THE DAY. UNABLE TO AROUSE PT BOTH TIMES IN AM.. IN PM, FINALLY GOT PT TO WAKE UP BUT SHE REFUSED ANY ACTIVITY DUE TO WANTING PAIN MEDS.. INFORMED NURSING MICHAEL ORTA OTR/L
[2020-12-04 16:48] VITALS: BP 117/60
[2020-12-04 20:00] VITALS: BP 116/70
[2020-12-05] VITALS: BP 132/61
--- NOTE | 2020-12-05 04:39 | NUR ---
Pt has slept all night and required verbal and physical stimuli to wake. VSS and tele remains on Sats have remained WNL and pt has not participated with CDB exercises as she has fallen asleep during same. In bed sleeping at this time.
--- NOTE | 2020-12-05 05:12 | NUR ---
This nurse went in to assist lab with blood draw. IV site patent but, unable to draw back blood. Pt refusing lab draw or blood glucose this AM. Pt refusing all meds and treatments, "Until I talk to the doctor and he gives me a pain pill for my knee and hip". Lab present to hear conversation. Charge nurse also in room and tried approaching pt who continued to refuse the same for the same reason. Pt very upset and requesting to "Just sleep. Leave me alone until the doctor gets here."
[2020-12-05 09:00] VITALS: BP 135/62
--- NOTE | 2020-12-05 10:21 | NUR ---
PATIENT STATES SHE WILL NOW TAKE HER MEDS. SHE HAS BEEN REFUSING MEDS,LABS AND ANY TX. SHE SAYS WHEN THE DOCTOR ROUNDS AND GIVES HER PAIN MEDS SHE WILL COOPERATE.
--- NOTE | 2020-12-05 10:30 | NUR ---
ASSESSMENT PER FLOW SHEET. PATIENT IS WITHOUT DISTRESS. MEDS ORDERED PER DEC.
[2020-12-05 10:40] LABS: BASOPHILS 0.2 % (0-2); EOSINOPHILS 0.6 % (0-7); HEMATOCRIT 37.1 % (36.0-48.0); HEMOGLOBIN 11.4 g/dL (12-16); IMMATURE GRANULOCYTES 0.4 % (0-5); LYMPHOCYTE ABS# 0.72 10x3/uL (1.18-3.74); LYMPHOCYTES 14.8 % (15-50); MCH 28.2 pg (26.0-34.0); MCHC 30.7 g/dL (31.0-37.0); MEAN PLATELET VOLUME 9.2 fL (7.4-10.4); MONOCYTES 9.3 % (2-11); NEUTROPHIL ABS# 3.63 10x3/uL (1.56-6.13); NEUTROPHILS 74.7 % (40-80); PLATELET COUNT 158 10x3/uL (130-400); RBC 4.04 10x6/uL (4.00-5.40); RDW 13.4 % (11.5-14.5); WBC 4.9 10x3/uL (4.8-10.8)
[2020-12-05 10:46] LABS: MCV 91.8 fL (80.0-100.0)
[2020-12-05 10:50] LABS: ALBUMIN 2.9 g/dL (3.4-5.0); ALKALINE PHOSPHATASE 189 U/L (30-120); ALT (SGPT) 48 U/L (10-68); BILIRUBIN - TOTAL 0.43 mg/dL (0.2-1.3); CALC OSMOLALITY 281 mosm/kg (275-300); CALCIUM 8.4 mg/dL (8.5-10.1); CARBON DIOXIDE 39.6 mmol/L (21.0-32.0); CHLORIDE - SERUM 104 mmol/L (98-107); CREATININE - SERUM 0.7 mg/dL (0.6-1.3); GLUCOSE 96 mg/dL (74-106); MAGNESIUM - SERUM 1.9 mg/dL (1.8-2.4); PROTEIN - SERUM 6.5 g/dL (6.4-8.2); SODIUM 142 mmol/L (136-145); UREA NITROGEN 11 mg/dL (7-18); eGFR NON AFRICAN AMERICAN > 90 mL/min (90-120)
--- NOTE | 2020-12-05 11:00 | NUR ---
BED CHANGE. PATIENT INCONTINENT OF STOOL.
[2020-12-05] MEDS ORDERED: DULERA 200 MCG8.8 GM INH (11:49)
[2020-12-05] MEDS ORDERED: MUCINEX600 MG PO (11:49)
[2020-12-05 13:17] VITALS: BP 128/60
--- NOTE | 2020-12-05 14:15 | MORECARE ---
CASE MANAGEMENT DISCHARGE SUMMARY PATIENT: MAYURI CHILD UNIT: [id number] ADM DATE: 12/02/20 AGE: 55 : 63 SEX: F ROOM/BED: D.2227 AUTHOR: TIN HERNANDEZ PHYSICIAN: REFERRING PHYSICIAN: ROSEMARY TODD MD DATE OF SERVICE: 12/05/20 Discharge Plan Patient Name: MAYURI CHILD Facility: [facility] : 1965 Planned Disposition: Anticipated Discharge Date: Discharge Date: Expected LOS: Initial Reviewer: [email or web address] Initial Review Date: 12/01/2020 Generated: 12/05/20 3:15 pm DCPIA - Discharge Planning Initial Assessment Updated by [id number]: Annabella Stanley on 12/05/20 2:14 pm * Is the patient Alert and Oriented? Yes * PCP [facility] * Preadmission Environment Credit Interviewer [facility] * Facility Name [facility] * Additional services required to return to the preadmission environment? No * Can the patient safely return to the preadmission environment? Yes * Has this patient been hospitalized within the prior 30 days at any hospital? No External Providers External Provider: [facility] Next Contact Date: Service Request Date: Service Type: Resolution: Reviewer: Comments: External Provider: [facility] Next Contact Date: Service Request Date: Service Type: Resolution: Reviewer: Comments: Coverage Notice Reviewer: [id number] Stanley Notice Issued Date-Time: 12/02/2020 9:33 Notice Type: Medicare Outpatient Observation Notice Notice Delivered To: Patient Relationship to Patient: Painter And Body Mechanic Apprentice Name: Delivery Method: - Samantha Days: Prior Verbal Notification: Recipient Understood Notice: Recipient Signature: Med Rec Note Co-signed by Attending: Coverage Notice Comment: Reviewer: [id number] Stanley Notice Issued Date-Time: 12/05/2020 14:14 Notice Type: IM Discharge Notice Notice Delivered To: Relationship to Patient: Painter And Body Mechanic Apprentice Name: Delivery Method: - Samantha Days: Prior Verbal Notification: Recipient Understood Notice: Recipient Signature: Med Rec Note Co-signed by Attending: Coverage Notice Comment: Patient Name: MAYURI CHILD Page 71670 at 1415 All edits/amendments must be made on the electronic document DICTATION DATE: 12/05/201413 DISABILITY ATTORNEY: DENISE 12/05/201413 RPT#: [id number] DC DATE: STATUS: ADM IN [facility] [address] [place] [address] END OF REPORT
--- NOTE | 2020-12-05 14:23 | MORECARE ---
CASE MANAGEMENT DISCHARGE SUMMARY PATIENT: MAYURI CHILD UNIT: [id number] ADM DATE: 12/02/20 AGE: 55 : 63 SEX: F ROOM/BED: D.2227 AUTHOR: MARY,DOC PHYSICIAN: REFERRING PHYSICIAN: ROSEMARY TODD MD DATE OF SERVICE: 12/05/20 Discharge Plan Patient Name: MAYURI CHILD Facility: [facility]:[place] : 1965 Planned Disposition: Anticipated Discharge Date: Discharge Date: Expected LOS: Initial Reviewer: [id number] Initial Review Date: 12/01/2020 Generated: 12/05/20 3:23 pm Comments DCP- Discharge Planning Updated by [email or web address]: Annabella Stanley on 12/05/20 1:[address] Patient Name: MAYURI CHILD Admission Status: ER Accout number: [id number] Admission Date: 12-02-2020 : 1965 Admission Diagnosis:ATELECTASIS Attending: ROSEMARY TODD Current LOS: 3 Anticipated DC Date: Planned Disposition: Primary Insurance: MEDICARE A & B Discharge Planning Comments: CM met with patient at bedside after obtaining verbal consent. CM discussed availability / needs of home health, REHAB and medical equipment. PATIENT STATES IS IN DOT COMPLIANCE COORDINATOR CARE AT THE [facility]. PLAN IS TO RETURN TO THE [facility] AT DISCHARGE. IMM SIGNED AND PLACED ON CHART. I HAVE FAXED CLINICALS TO THE [facility] AND WAITING CALL BACK. CM TO FOLLOW AND ASSIST NEEDED. Chief Deputy Clerk/Bailiff: Annabella Stanley DCPIA - Discharge Planning Initial Assessment Updated by [id number]: Annabella Stanley on 12/05/20 2:14 pm * Is the patient Alert and Oriented? Yes * PCP [facility] * Preadmission Environment C[facility]odial [facility] * Facility Name [facility] * Additional services required to return to the preadmission environment? No * Can the patient safely return to the preadmission environment? Yes * Has this patient been hospitalized within the prior 30 days at any hospital? No Coverage Notice Reviewer: [id number] - Annabella Stanley Notice Issued Date-Time: 12/02/2020 9:33 Notice Type: Medicare Outpatient Observation Notice Notice Delivered To: Patient Relationship to Patient: Rewinder Operator Name: Delivery Method: - Samantha Days: Prior Verbal Notification: Recipient Understood Notice: Recipient Signature: Med Rec Note Co-signed by Attending: Coverage Notice Comment: Reviewer: [id number] Blanco Stanley Notice Issued Date-Time: 12/05/2020 14:14 Notice Type: IM Discharge Notice Notice Delivered To: Relationship to Patient: Rewinder Operator Name: Delivery Method: - Samantha Days: Prior Verbal Notification: Recipient Understood Notice: Recipient Signature: Med Rec Note Co-signed by Attending: Coverage Notice Comment: Last DP export: 12/05/20 1:15 pm Patient Name: MAYURI CHILD Page 24062 at 1423 All edits/amendments must be made on the electronic document DICTATION DATE: 12/05/201422 SERVICE STATION HELPER: DENISE 12/05/201422 RPT#: [id number] DC DATE: STATUS: ADM IN [facility] [address] [place] [address] END OF REPORT
[2020-12-05 16:09] VITALS: BP 124/53
[2020-12-05 20:00] VITALS: BP 125/60
--- NOTE | 2020-12-05 22:00 | NUR ---
A&O X 4. PT ON BEDPAN, REPORTS BURNING WHILE URINATING. ASKING WHEN NEXT PAIN MED AVAILABLE. INFORMED PT WHEN. SNACKS GIVEN PER REQUEST. NO FURTHER NEEDS VOICED, CTM.
[2020-12-06] VITALS: BP 111/49
--- NOTE | 2020-12-06 01:34 | NUR ---
I have reviewed this patient and I concur with the Shift Assessment completed by the Licensed Practical Nurse today this shift.
[2020-12-06 04:00] VITALS: BP 141/75
[2020-12-06 05:37] LABS: BASOPHILS 0.2 % (0-2); EOSINOPHILS 1.5 % (0-7); HEMATOCRIT 36.4 % (36.0-48.0); HEMOGLOBIN 11.1 g/dL (12-16); IMMATURE GRANULOCYTES 0.2 % (0-5); LYMPHOCYTE ABS# 1.34 10x3/uL (1.18-3.74); LYMPHOCYTES 29.5 % (15-50); MCHC 30.5 g/dL (31.0-37.0); MCV 91.9 fL (80.0-100.0); MEAN PLATELET VOLUME 9.6 fL (7.4-10.4); NEUTROPHILS 59.6 % (40-80); PLATELET COUNT 170 10x3/uL (130-400); RBC 3.96 10x6/uL (4.00-5.40); RDW 13.6 % (11.5-14.5); WBC 4.5 10x3/uL (4.8-10.8)
[2020-12-06 06:14] LABS: ALBUMIN 2.9 g/dL (3.4-5.0); ALKALINE PHOSPHATASE 156 U/L (30-120); ALT (SGPT) 36 U/L (10-68); BILIRUBIN - TOTAL 0.45 mg/dL (0.2-1.3); CALC OSMOLALITY 276 mosm/kg (275-300); CALCIUM 8.3 mg/dL (8.5-10.1); CARBON DIOXIDE 36.3 mmol/L (21.0-32.0); CHLORIDE - SERUM 101 mmol/L (98-107); CREATININE - SERUM 0.7 mg/dL (0.6-1.3); GLUCOSE 82 mg/dL (74-106); MAGNESIUM - SERUM 1.9 mg/dL (1.8-2.4); POTASSIUM - SERUM 3.7 mmol/L (3.5-5.1); PROTEIN - SERUM 6.2 g/dL (6.4-8.2); SODIUM 140 mmol/L (136-145); UREA NITROGEN 11 mg/dL (7-18); eGFR NON AFRICAN AMERICAN > 90 mL/min (90-120)
--- NOTE | 2020-12-06 07:45 | NUR ---
ASSESSMENT PER FLOW SHEET. PATIENT IS WITHOUT DISTRESS.PAIN MEDS PER MAR ORDERED. PAIN 8/10 TO LEGS AND BACK.02 SATS 97% ON 4 LITERS PER HIGH FLOW. 02 DECREASED TO 2 LITERS AND SATS 93-94 %.CALL LIGHT IN REACH
[2020-12-06 08:28] VITALS: BP 141/68
--- NOTE | 2020-12-06 10:29 | NUR ---
REPORT TO [facility],SPOKE WITH PATRICIO
--- NOTE | 2020-12-06 11:40 | NUR ---
RIDE HERE FOR TRANSPORT TO [facility]. LEFT UNIT VIA WHEELCHAIR
--- NOTE | 2020-12-09 07:48 | MORECARE ---
CASE MANAGEMENT DISCHARGE SUMMARY PATIENT: MAYURI CHILD UNIT: [id number] ADM DATE: 12/02/20 AGE: 55 : 63 SEX: F ROOM/BED: D.2227 AUTHOR: MARY,DOC PHYSICIAN: REFERRING PHYSICIAN: ROSEMARY TODD MD DATE OF SERVICE: 12/09/20 Discharge Plan Patient Name: MAYURI CHILD Facility: [facility]:[place] : 1965 Planned Disposition: Anticipated Discharge Date: Discharge Date: 12/06/2020 Expected LOS: Initial Reviewer: [id number] Initial Review Date: 12/01/2020 Generated: 12/09/20 8:47 am Comments DCP- Discharge Planning Updated by [id number]: Annabella Stanley on 12/05/20 1:[address] Patient Name: MAYURI CHILD Admission Status: ER Accout number: [id number] Admission Date: 12-02-2020 : 1965 Admission Diagnosis:ATELECTASIS Attending: ROSEMARY TODD Current LOS: 3 Anticipated DC Date: Planned Disposition: Primary Insurance: MEDICARE A & B Discharge Planning Comments: CM met with patient at bedside after obtaining verbal consent. CM discussed availability / needs of home health, REHAB and medical equipment. PATIENT STATES IS IN USP CARE AT THE [facility]. PLAN IS TO RETURN TO THE [facility] AT DISCHARGE. IMM SIGNED AND PLACED ON CHART. I HAVE FAXED CLINICALS TO THE [facility] AND WAITING CALL BACK. CM TO FOLLOW AND ASSIST NEEDED. Health Physicist: Annabella Stanley DCPIA - Discharge Planning Initial Assessment Updated by [email or web address]: Annabella Stanley on 12/05/20 2:14 pm * Is the patient Alert and Oriented? Yes * PCP [facility] * Preadmission Environment [employer] * Facility Name [facility] * Additional services required to return to the preadmission environment? No * Can the patient safely return to the preadmission environment? Yes * Has this patient been hospitalized within the prior 30 days at any hospital? No Coverage Notice Reviewer: [id number] - Annabella Stanley Notice Issued Date-Time: 12/02/2020 9:33 Notice Type: Medicare Outpatient Observation Notice Notice Delivered To: Patient Relationship to Patient: Business Programmer Name: Delivery Method: - Samantha Days: Prior Verbal Notification: Recipient Understood Notice: Recipient Signature: Med Rec Note Co-signed by Attending: Coverage Notice Comment: Reviewer: [id number] Blanco Stanley Notice Issued Date-Time: 12/05/2020 14:14 Notice Type: IM Discharge Notice Notice Delivered To: Relationship to Patient: Business Programmer Name: Delivery Method: - Samantha Days: Prior Verbal Notification: Recipient Understood Notice: Recipient Signature: Med Rec Note Co-signed by Attending: Coverage Notice Comment: Last DP export: 12/05/20 1:23 pm Patient Name: MAYURI CHILD Page 44237 at 0748 All edits/amendments must be made on the electronic document DICTATION DATE: 12/09/20747 STUDY DIRECTOR: DENISE 12/09/20747 RPT#: [id number] DC DATE:12/06/20 STATUS: DIS IN [facility] [address] [place] [address] END OF REPORT
== END 2020-12-06 11:30 | DRG 205 ==
LOC: D.ER 23:07 → D.MS 12-01 07:08 → OBSVTIME 12-01 07:08 → D.MS 12-01 07:08
PROVIDERS: Family Medicine; ADMIT Emergency Medicine; ATTEND Emergency Medicine
DX: J98.11 Atelectasis (principal); J96.22 Acute and chronic respiratory failure with hypercapnia; R04.2 Hemoptysis; Z68.43 Body mass index [BMI] 50.0-59.9, adult; E66.01 Morbid (severe) obesity due to excess calories; Z95.0 Presence of cardiac pacemaker; E11.65 Type 2 diabetes mellitus with hyperglycemia; F31.9 Bipolar disorder, unspecified; Z86.16 Personal history of COVID-19; G89.29 Other chronic pain; M54.9 Dorsalgia, unspecified; I50.9 Heart failure, unspecified; G40.909 Epilepsy, unspecified, not intractable, without status epilepticus; G47.33 Obstructive sleep apnea (adult) (pediatric)